=== PATIENT | female | born 1930 | race Caucasian/White ===

== ENCOUNTER 2017-01-28 22:18 | Inpatient (IN) | payer MEDICARE ==
[~2017-01-28] VITALS: Ht 157.5 cm; Wt 110.1 kg
[~2017-01-28 22:18] MED LIST: ATRV10T PO; METF1000 PO; MOT200T PO
[2017-01-28 22:23] VITALS: BP 151/73; PULSE 84; RESP 20; O2SAT 93
--- NOTE | 2017-01-28 22:45 | ED.REPORT ---
HPI-General Illness Date of Service January 28, 2017 ED Provider: Rainer Mccall MD 86 year old female with a history of CKD stage 3, diabetes, and thyroid disease presents to the ER accompanied by her daughter complaining of two days of fever (102.7F) and cough. Associated symptoms include confusion, difficulty breathing , rhinorrhea, generalized myalgias, and sore throat. Daughter reports that the patient has a history of pneumonia that seems to recur annually with associated confusion. Her neighbor's children have recently been ill with similar symptoms. Nursing Notes Stated Complaint: FEVER Chief Complaint: FLU/Cold Symptoms Nursing Notes Reviewed: Yes Allergies: Coded Allergies: No Known Allergies (Verified , 01/28/17) Scheduled Atorvastatin-Expunged Drug, Do Not Renew! (Atorvastatin-Expunged Drug, Do Not Renew!) 10 Mg Tablet 10 MG PO DAILY For Cholesterol Management. IBUPROFEN-Expunged Drug, Do Not Renew! (Motrin-Expunged Drug, Do Not Renew!) 200 Mg Tablet 200 MG PO PRN General Time Seen by MD: 22:45 Chief Complaint Cough, Fever Hx Obtained From: Patient, Daughter Arrived By: Walk-in Sudden in Onset?: No Onset Occurred: 2 days ago Symptom Duration: Since onset Associated with: Reports: Cough Pertinent Negative: Pt denies other symptoms Similar Sx Previous: No Past Medical History Past Medical History CKD stage III benign neoplasm of colon Reports: Diabetes mellitus, Hyperlipidemia, Hypertension Reports: Thyroid disease, Urinary tract infection Past Surgical History Reports: Cholecystectomy Smoking History Former Smoker Social History Other Social History: Lives with children Review of Systems Full Review of Systems Constitutional: Reports: Fatigue, Fever Ears / Nose / Throat: Reports: Nasal congestion, Sore throat Respiratory: Reports: Non-productive cough, Denies: Shortness of breath Cardiovascular: Denies: Chest pain GI: Denies: Abdominal pain, Diarrhea, Nausea, Vomiting Musculoskeletal: Reports: Myalgia (Generalized) Allergy / Immune: Reports: Rhinorrhea Neurologic: Reports: Confusion Complete sys rev & neg: except as marked. Physical Exam Vital Signs Vital Signs Date Time Temp Pulse Resp B/P Pulse Ox O2 Delivery O2 Flow Rate FiO2 01/28/17 23:41 94 Nasal Cannula 3 01/28/17 22:23 39.3 84 20 151/73 93 Room Air Initial VS: Reviewed Head / Eyes: Atraumatic, Normocephalic Neck: Supple, Non-tender, Full range of motion Abdomen / GI: Soft, Non-tender, No guarding, No rebound, No distention Extremities: Vascular intact, Neuro intact, No swelling, No tenderness Skin: Warm, Dry, No cyanosis Neurologic: Alert, Oriented, Nonfocal General/Constitutional: Awake, Alert, Well developed, Well nourished Alertness: Positive: Confused Respiratory / Chest: No chest tenderness, No chest wall deformity Wheezing / Retractions: Positive: Wheezing moderate Crackles and wheezes on the right both anteriorly and posteriorly. Cardiovascular: Heart rate NL, Regular rhythm, Heart sounds NL, Cap refill not delayed, Peripheral circulation NL Interpretation & Diagnostics Lab Results Interpretation Result Diagram: 01/28/17 2333 01/28/17 2333 Test 01/28/17 23:33 01/28/17 23:34 01/29/17 00:00 01/29/17 00:21 Total Bilirubin 0.4mg/dL (0.0-1.2) Aspartate Amino Transf (AST/SGOT) 20U/L (0-50) Alanine Aminotransferase (ALT/SGPT) 12U/L (0-32) Alkaline Phosphatase 49U/L (25-165) Troponin T 0.010ug/L (0.0-0.011) Pro-B-Type Natriuretic Peptide 199.2pg/mL (0-738) Total Protein 6.6g/dL (6.4-8.4) Albumin 3.7g/dL (3.4-5.0) Hold Dooley Top Tube Received (Received) Lactic Acid Level 0.2mmol/L (0.4-2.0) Procalcitonin 0.11ng/mL (0.00-0.08) ECG Interpretation ECG Interpretation: Sinus arrhythmia, 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 View: Portable, 1 view Interpretation / Wet Read by: Wet read ED physician Re-Eval/Medical Decision Med Decision/Clinical Course 86-year-old diabetes, several episodes of prior pneumonia, presents with mild cough hypoxemia mild confusion and fever. X-ray shows an upper lobe infiltrate. White count is unremarkable. There is mild from cytopenia mild anemia. Begun with IV antibiotics for outpatient or pneumonia. Admitted now for additional antibiotics, supplemental oxygen. Source of Hx: Old records Time of Eval: 23:58 Re-Evaluation/Progress Note: Discussed lab and imaging results and need for admission. Patient is amenable to the plan. All other questions addressed. Consultation : Referral / Consult Name: April Chaney DO Consulted With: Hospitalist Call Returned at: 11:55 Plant Operator Helper: Agrees with eval, Agrees with plan, Accepts admit Counseled Regarding: Diagnosis, Lab results, Need for admission Discharge & Departure Primary Impression: Pneumonia Additional Impression: Hypoxemia Disposition: ADMITTED TO HOSPITAL Discharge Condition All VS Reviewed: Yes Condition: Stable Referrals: ADELITA SCHULER (PCP) Scribe Attestation Portions of this note were transcribed by Peyman Goyal. I, Dr. Mccall, personally performed the history, physical exam and medical decision-making; I reviewed and confirmed the accuracy of the information in the transcribed note. 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 View: Portable, 1 view Interpretation / Wet Read by: Wet read ED physician Re-Eval/Medical Decision Source of Hx: Old records Time of Eval: 23:58 Re-Evaluation/Progress Note: Discussed lab and imaging results and need for admission. Patient is amenable to the plan. All other questions addressed. Consultation : Referral / Consult Name: April Chaney DO Consulted With: Hospitalist Call Returned at: 11:55 Plant Operator Helper: Agrees with eval, Agrees with plan, Accepts admit Counseled Regarding: Diagnosis, Lab results, Need for admission Discharge & Departure Primary Impression: Pneumonia Additional Impression: Hypoxemia Disposition: ADMITTED TO HOSPITAL Discharge Condition All VS Reviewed: Yes Condition: Stable Referrals: ADELITA SCHULER (PCP) Scribe Attestation Portions of this note were transcribed by Peyman Goyal. I, Dr. Mccall, personally performed the history, physical exam and medical decision-making; I reviewed and confirmed the accuracy of the information in the transcribed note. Signed by: Xiao Mckeon, 01/29/2017 at 00:28 copies to: ASHLEY-ADELITA RODARTE Christopher W MD January 28, 2017 22:45 PEYMAN GOYAL January 28, 2017 23:42
[2017-01-28 23:36] LABS: BASOPHILS % (AUTO) 0.2 % (0-3); EOSINOPHILS % (AUTO) 0 % (0-5); MONOCYTES % (AUTO) 6.1 % (4-12); Mean Corpuscular Hemoglobin 28.9 pg (27.0-35.0); Mean Corpuscular Volume 90.3 fL (81-100); NEUTROPHILS % (AUTO) 51.2 % (40-74); Platelet Count 110 bil/L (150-400)
[2017-01-28 23:41] VITALS: O2SAT 94
[2017-01-29] VITALS (11 sets, daily range): BP systolic 136–152; BP diastolic 51–76; PULSE 63–75; RESP 16–20; O2SAT 88–98
[2017-01-29] MEDS ORDERED: Azithromycin Inj 500 MG in Dextrose 5% w/Vial Mate 250 ML IV ONE (00:15)
[2017-01-29] MEDS ORDERED: cefTRIAXone Inj 2,000 MG in Dextrose 5% Minibag Plus 50 ML IV ONE (00:15)
[2017-01-29 00:44] LABS: TROPONIN T 0.01 ug/L (0.0-0.011)
[2017-01-29] MEDS: Lactated Ringer's 1,000 ML IV SCH ×3 (01:36→21:36)
[2017-01-29] MEDS ORDERED: Ondansetron 2 mg/mL 2 mL Inj IVPUSH PRN (01:40)
[2017-01-29] MEDS ORDERED: Alum-Mag Hydrox-Simeth 30 mL Suspension PO PRN ×2 (01:40→03:05)
[2017-01-29] MEDS: 0.9% Sodium Chloride 1,000 ML IV SCH ×3 (03:02→22:56)
[2017-01-29] MEDS ORDERED: Polyethylene Glycol (PEG) 17 Gm Powder PO PRN (03:05)
[2017-01-29] MEDS ORDERED: Albuterol 2.5 mg/3 mL Inhalation Solution NEB PRN (03:05)
[2017-01-29 03:50] LABS: APPEARANCE,URINE HAZY (CLEAR,HAZY); COLOR,URINE YELLOW (YELLOW); OCCULT BLOOD,URINE TRACE (NEGATIVE); UROBILINOGEN,URINE NORMAL (NORMAL)
--- NOTE | 2017-01-29 04:04 | PCM.HPMED ---
Subjective Date of Service January 29, 2017 Primary Provider: Admitting Physician: April Chaney DO Primary Care Physician: Clint-Ventura Tapia Attending Physician: April Chaney DO Admit Status: From the Emergency Department Chief Complaint: fever and cough History of Present Illness: 86-year-old female with history of non-insulin requiring type II diabetes, hypothyroid, and hypertension who presented to the ER for complaints of 2 days of high fever and cough. Daughter reports that associated symptoms include shortness of breath, generalized myalgias, and sore throat. Daughter has noted that patient has had some confusion also. Patient reports she has been around children that have been sick recently, but denies any recent travels. She has had a mild headache and lightheadedness, but denies any chest pain, abdominal pain, diarrhea, or rash. She at baseline has mixed urinary incontinence, but denies any dysuria. She reports her cough has been mildly productive. She has had decreased appetite and PO intake. Current PCP is Nikita. In the ER, patient was noted to be febrile with a temperature of 39.3, pulse of 84, respiratory rate of 20 and a blood pressure 151/73. She was noted to saturate around 92% on room air, but does desat to 88% with exertion. CBC is pertinent for a hemoglobin of 11.6 and a platelet count of 110 CMP was pertinent for creatinine of 1.13 and a pro-calcitonin 0.11 Patient was started on IV azithromycin and IV ceftriaxone for presumed CAP Review of Systems: Complete review of systems negative except as stated in the history of present illness Allergies Coded Allergies: No Known Allergies (Verified , 01/28/17) Home Medications Lisinopril 5 mg daily Lovastatin 10 mg daily Oxybutynin 15 mg daily Ibuprofen when necessary PMH Hypertension Hyperlipidemia Type II diabetes- patient reports not taking any diabetic medications anymore Hypothyroidism Recurrent pneumonias Mixed urinary incontinence PVD Carpal tunnel Surgical History Cholecystectomy Hysterectomy Family History Family history of CAD Social History Hx Alcohol Use: No Hx Substance Use: No Hx Tobacco Use: No Smoking Status: Former Smoker Living Arrangement: with Family Exam Vital Signs Vital Sign - Last Date Time Temp Pulse Resp B/P Pulse Ox O2 Delivery O2 Flow Rate FiO2 01/29/17 02:28 73 01/29/17 02:05 37.9 18 145/69 98 Nasal Cannula 2.00 Exam Gen: Obese elderly female who appears in mild respiratory distress, alert and oriented 3 HEENT: PERRLA, EOMI, sclerae anicteric, oropharynx mildly dry but pink Neck: Soft, obese, nontender CV: Irregular rhythm with normal rate, soft systolic murmur, no JVD noted Respiratory: Moderate Diffuse generalized bilateral wheezing, bibasilar rales noted, mild increase in respiratory effort, no accessory muscle usage, mild wet cough noted Abdomen: Obese, soft, nontender, and NABS MSK: Strength grossly intact and equal, swollen or tender joints, no clubbing cyanosis or edema Neuro: Grossly intact, no focal weakness, speaks full and fluent sentences Skin: Warm, dry, intact, mild skin tenting Psych: Mildly stoic affect, linear thought processes, cooperative Lab and Diagnostics Result Diagram: 01/28/17 23301/28/172332 12-lead ECG ECG Interpretation: Sinus arrhythmia, 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 View: Portable, 1 view Interpretation / Wet Read by: Wet read ED physician Assessment & Plan 86-year-old female with history of non-insulin requiring type II diabetes, hypothyroid, and hypertension who presented to the ER for complaints of 2 days of high fever and cough. Acute hypoxic respiratory failure, POA Patient noted to desat to 88% on room air with exertion. Not oxygen requiring at home, no known diagnosis of COPD or asthma Currently doing well on 2 L NC ABG prn increased oxygen requirement community-acquired pneumonia, present on admission Presentation of cough, fever, lung infiltrate on x-ray is suspicious for pneumonia. Patient is hypoxic with diffuse wheezing. Initiated on IV ceftriaxone and IV azithromycin on January 29 in the ED. We will plan to continue this for now Respiratory PCR viral panel MRSA screen pending, S. pneumoniae and legionella screen pending Blood cultures and sputum cultures pending DuoNeb 4 times a day while awake, albuterol prn Elevated creatinine, POA Patient is unsure of any history of chronic kidney disease. Creatinine is 1.13 on admission We will plan to hydrate and continue to monitor There is trace protein and blood on UA. Sinus Arrythmia, POA Patient denies any previous cardiac history. Admission EKG showed a sinus arrhythmia. Patient not complaining of any chest pain, may be due to hypoxia Place on telemetry for CV monitoring Consider echocardiogram Thrombocytopenia with chronic normocytic anemia, POA Platelets of 110 on admission. Patient's platelet was 106 in August, and was 145 in 2012. Uncertain of etiology, but worthy of at least outpatient workup. Stable normocytic anemia with hgb of 11.6. Hypothyroid, POA We will resume patient's home thyroid medication when MED REC is performed Hypertension, POA We will resume patient's home medication when med rec is done Mixed urinary incontinence, POA We will resume patient's home medication when med rec is done Type II diabetes, POA Patient reports her PCP does not think she has diabetes and removed all of her diabetes medication Hgb A1c pending Morbid obesity, POA BMI of 40.4 Tylenol when necessary for fever/pain Ibuprofen when necessary for fever/pain Zofran when necessary for nausea CODE STATUS: Full resuscitation Disposition: Pt is admitted under inpatient status, expected LOS >2 midnights, due to risk of adverse events, medical complexity, and decompensation Pain Evaluation: Adequate Pain Control VTE Prophylaxis: Sub-Q Heparin (Unfractionated) VTE Mechanical Devices: Intermittant Pneumatic CD Resuscitation Status: CPR: Attempt Resuscitation Attending Statement The patient was seen and examined together with house staff on 01/29/2017 and I agree with the history, exam and plan as outlined in the note above. Pato Guerrero DO January 29, 2017 03:28 April Chaney DO January 29, 2017 05:53
--- NOTE | 2017-01-29 05:46 | NUR ---
Admit Pt arrived to unit at 0150. Diagnosis of PNA. Pt oriented to room , call light and TV. Pt is FULL CODE per her discussion with MD as Pt was unsure if she has an advance directive. Very tired and having problems remembering all answers needed for questions. 0 c/o pain, lungs very wheezy with crackles and rhonchi. Pt on 2L o2 via NC. Weak and transferred from stretcher to bed with a slide and scoot. Was able to get up to BSC with 2EA and FWW.
[2017-01-29 06:03] LABS: BASOPHILS % (AUTO) 0.2 % (0-3); EOSINOPHILS % (AUTO) 0 % (0-5); MONOCYTES % (AUTO) 5.3 % (4-12); Mean Corpuscular Volume 90.9 fL (81-100); NEUTROPHILS % (AUTO) 46.2 % (40-74); Platelet Count 104 bil/L (150-400)
--- NOTE | 2017-01-29 07:51 | DRSVH ---
PROCEDURE: X-RAY CHEST ONE VIEW, PORTABLE ([id number]) INDICATIONS: FEVER, COUGH TECHNIQUE: One view of the chest was acquired. COMPARISON: September 10, 2016. FINDINGS: Surgical changes and devices: Right upper mediastinal surgical clips. Lungs and pleura: No pleural effusions or pneumothorax. Right midlung 2.6 cm ill-defined pulmonary o pacity. Left lower lobe pulmonary opacity. Mediastinum: Mediastinal contours appear normal. Heart size is normal. Bones and chest wall: No suspicious bony lesions. Overlying soft tissues appear unremarkable. IMPRESSION: Right midlung and left lower lobe pulmonary opacity may represent pneumonia. An underlyin g mass lesion in the right midlung is possible. Recommend a followup chest radiograph in 10 weeks. If finding persists, a chest CT with contrast will be needed. Dictated by: Luis Ramirez M.D. on 01/29/2017 at 7:47 Approved by: Luis Ramirez M.D. on 01/29/2017 at 7:50
[2017-01-29] MEDS: Albuterol-Ipratropium 3 mL Inhalation Solution NEB SCH ×4 (08:42→20:20)
--- NOTE | 2017-01-29 09:19 | NUR ---
Social Work- Initial Assessment Data: See Initial Assessment. Pt is a 86 year old female admitted 01/29/17 for RLL Pneumonia per H&P. Pt's insurance is [employer]. Pt's PCP is MD Nikita at the [facility]. DEISY met with pt and daughter Constanza [phone] at bedside regarding discharge plan, DEISY role explained. Pt alert and oriented x3. Pt resides in [place] with her great grandchildren and their mother where she remains largely independent with ADLs. Pt reports her 11 year old great grandson sometimes helps with meals, though this is not required. Pt uses a cane or walker at base and continues to drive. Pt has HH history with [facility] PT after a hospitalization in August. Pt states this was not very helpful to her. Pt has no SNF history. Pt uses no O2 at home. Pt has no LTC or VA benefits. Pt states she has completed DPOA but it is not on file at [facility], SW requested a copy to be brought to the hospital. Pt agreeable to this. DEISY wrote phone number on whiteboard and provided business card. Pt may benefit from PT evaluation, SW to request this in rounds. Pt likely to discharge home with family to transport, SW will continue to follow and R/O HH. Assessment: Pt who is independent at base Plan: DEISY to request PT evaluation at rounds. Pt likely to discharge home with family to transport, SW will continue to follow and R/O HH. ROSETTE Arce Addendum: 01/29/17 at 0927 by KRISTOPHER NAIDU Amended: Links added.
[2017-01-29] MEDS: Heparin 5,000 Unit/mL Inj SUBQ SCH ×2 (10:32→16:52)
[2017-01-29] MEDS ORDERED: Azithromycin Inj 500 MG in Dextrose 5% w/Vial Mate 250 ML IV SCH (19:30)
[2017-01-29] MEDS ORDERED: cefTRIAXone Inj 2,000 MG in Dextrose 5% Minibag Plus 50 ML IV SCH (20:30)
[2017-01-30] VITALS (11 sets, daily range): BP systolic 98–138; BP diastolic 56–74; PULSE 71–94; RESP 18–20; O2SAT 90–97
[2017-01-30] MEDS: Heparin 5,000 Unit/mL Inj SUBQ SCH ×3 (01:48→17:06)
[2017-01-30] MEDS: Lactated Ringer's 1,000 ML IV SCH ×2 (07:36→17:06)
[2017-01-30] MEDS: 0.9% Sodium Chloride 1,000 ML IV SCH ×3 (08:04→17:01)
[2017-01-30] MEDS: Albuterol-Ipratropium 3 mL Inhalation Solution NEB SCH ×4 (08:09→21:00)
--- NOTE | 2017-01-30 09:00 | NUR ---
Evaluation completed. Please go to "Notes" then click on "Assessments and Notes" (bottom left corner of screen). Then select appropriate discipline tab on top of screen.
[2017-01-30] MEDS ORDERED: LEVO50TA6 PO (09:54)
[2017-01-30] MEDS ORDERED: LISI-571 PO (09:54)
[2017-01-30] MEDS: Vancomycin 125 mg Oral Capsule PO SCH ×3 (10:54→20:53)
--- NOTE | 2017-01-30 13:40 | PCM.PNMED ---
Subjective Date of Service January 30, 2017 Subjective Patient continues to have high-grade fever. No significant cough or dyspnea. She has frequent watery diarrhea. C. difficile positive. Daughter at bedside reports she has a son (patient's grandson ) in correctional facility and they all went to visit him on January 16. 4 family members who visited intermediate developed URI symptoms and watery diarrhea few days after their return. Did not require hospitalization. they were treated for 'pneumonia' and diarrhea . Patient did not develop any symptoms at that time.also called and spoke with oldest daughter Juliet who lives with the the patient (the other sister lives downstairs with patient's grandkids) . She states patient developed watery diarrhea and high-grade fever 2 days prior to presentation. She also had confusion and poor appetite for 2 days. Patient complained of nasal congestion but no significant cough prior to presentation. Patient lethargic and not contributing much to history. Exam Vital Signs Vital Sign - Last Date Time Temp Pulse Resp B/P Pulse Ox O2 Delivery O2 Flow Rate FiO2 01/30/17 12:31 39.4 01/30/17 11:42 94 20 93 Nasal Cannula 2.00 01/30/17 07:55 113/61 Intake and Output 01/29/17 01/29/17 01/30/17 Cumulative From/Thru 14:59 22:59 06:59 01/28/17 22:23 - 01/30/17 06:03 Intake Total 2377 ml 100 ml 2577 ml Output Total 700 ml 1300 ml Balance 1677 ml 100 ml 1277 ml Intake Oral 400 ml 100 ml 600 ml IV Total 1977 ml 1977 ml Output Urine Total 600 ml Urine/Stool Mix 700 ml 700 ml # Voids 2 2 # Bowel Movements 4 1 6 Exam Gen: Obese elderly female who appears in mild respiratory distress, alert but lethargic HEENT: PERRLA, EOMI, sclerae anicteric, oropharynx mildly dry but pink Neck: Soft, obese, nontender CV: Irregular rhythm with normal rate, soft systolic murmur, no JVD noted Respiratory: Moderate Diffuse generalized bilateral wheezing, bibasilar rales noted, mild increase in respiratory effort, no accessory muscle usage, mild wet cough noted Abdomen: Obese, soft, nontender, and NABS MSK: Strength grossly intact and equal, swollen or tender joints, no clubbing cyanosis or edema Neuro: Grossly intact, no focal weakness, speaks full and fluent sentences Skin: Warm, dry, intact, mild skin tenting Psych: Mildly stoic affect, linear thought processes, cooperative IVs and Medications Medications Reviewed: Medications were reviewed in detail Lab and Diagnostics Result Diagram: 01/29/1751901/29/17519 12-lead ECG ECG Interpretation: Sinus arrhythmia, 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 View: Portable, 1 view Interpretation / Wet Read by: Wet read ED physician Assessment & Plan 86-year-old female with history of non-insulin requiring type II diabetes, hypothyroid, and hypertension who presented to the ER for complaints of 2 days of high fever and cough. # Acute C. difficile colitis -Patient presented with 2 days of fever, diarrhea, URi symptoms. No history of recent antibiotic use. Has history of contact with family members with similar symptoms ( diarrhea and URI symptoms) -C. difficile positive -Started vancomycin by mouth today 01/30. Discontinued ceftriaxone and azithromycin. Pneumonia seems to be viral given no productive cough, adenovirus positive. chest x-ray reported as possible early pneumonia. No significant infiltrate seen. will Repeat chest x-ray and consider starting doxycycline which is more c.dif neutral if significant infiltrate # Acute hypoxic respiratory failure, POA -Due to viral adenovirus pneumonia Patient noted to desat to 88% on room air with exertion. Not oxygen requiring at home, no known diagnosis of COPD or asthma Currently doing well on 2 L NC ABG prn increased oxygen requirement # Initially suspected community-acquired pneumonia, likely viral pneumonia, present on admission Presentation of cough, fever, lung infiltrate on x-ray is suspicious for pneumonia. Patient is hypoxic with diffuse wheezing. Initially started on IV ceftriaxone and IV azithromycin on January 29 in the ED. discontinued today 01/30 as above Respiratory PCR adenovirus MRSA screen negative, S. pneumoniae and legionella screen negative Blood cultures negative DuoNeb 4 times a day while awake, albuterol prn -Initial procal 0.11 # Elevated creatinine, POA Patient is unsure of any history of chronic kidney disease. Creatinine is 1.13 on admission We will plan to hydrate and continue to monitor There is trace protein and blood on UA. # Sinus Arrythmia, POA Patient denies any previous cardiac history. Admission EKG showed a sinus arrhythmia. Patient not complaining of any chest pain, may be due to hypoxia Place on telemetry for CV monitoring # Thrombocytopenia with chronic normocytic anemia, POA Platelets of 110 on admission. Patient's platelet was 106 in August, and was 145 in 2012. Uncertain of etiology, but worthy of at least outpatient workup. Stable normocytic anemia with hgb of 11.6. # Hypothyroid, POA We will resume patient's home thyroid medication when MED REC is performed # Hypertension, POA We will resume patient's home medication when med rec is done # Mixed urinary incontinence, POA We will resume patient's home medication when med rec is done # Type II diabetes, POA Patient reports her PCP does not think she has diabetes and removed all of her diabetes medication Hgb A1c pending # Morbid obesity, POA BMI of 40.4 Tylenol when necessary for fever/pain Ibuprofen when necessary for fever/pain Zofran when necessary for nausea CODE STATUS: Full resuscitation Disposition: Possible discharge in 2-3 days, PT eval requested VTE Prophylaxis: Sub-Q Heparin (Unfractionated) VTE Mechanical Devices: Intermittant Pneumatic CD Resuscitation Status: CPR: Attempt Resuscitation Chuck Stanley MD January 30, 2017 13:40
--- NOTE | 2017-01-30 14:08 | CONS ---
[address] [address] CONSULTATION REPORT PATIENT: aJcky ABDUL : 1930 MR#: [id number] ADMIT: 01/29/2017 JOB ID: [id number] INFECTIOUS DISEASE CONSULTATION: DATE OF SERVICE: 01/30/2017 REASON FOR CONSULTATION: C. difficile colitis plus adenoviral pneumonia. I thank Dr. Guerrero for this timely consult. HISTORY OF PRESENT ILLNESS: The patient is an 86-year-old woman whose past medical history includes relatively mild type 2 diabetes, hypothyroidism, hypertension, and some peripheral vascular disease. My efforts to gather history from her were very difficult. She is clearly awake and lying in bed, but when I ask a question, she usually just looks back at me and does not answer and does not decline to answer. On occasion, she did answer a very few questions with yes or no answers; for example, when I asked her how she felt, she said "only lousy" but refused to elaborate. When I asked about fevers, she said "yes." When asked about chills, I did not get an answer nor did I get an answer to questions about sweats. She basically declined to answer any questions about her respiratory status, though when asked if she had diarrhea, she said only "yes" and declined to say how long or how severe. When asked if she had any prior antibiotics, she said "yes", but declined to say when, which ones or what they were prescribed for her. In general, there was very little history to be obtained. In speaking to the nurses and nursing assistants, they report that she has been this way throughout the day and that she will occasionally answer questions with a one-word reply, or occasionally follow a command of some sort, but oftentimes just looks back at the examiner. Notes from the ER indicate that she was brought in by her daughter because she had a fever, cough, wheezing and shortness of breath. This was all associated with some mild sore throat, headache, and malaise. The daughter reported that at times in the hours leading up to admission last night, that she had been confused. It may be that the patient's mental status with me is confusion, though it is difficult to tell as she does answer some questions in a way that seemed appropriate. Additional notes from the chart indicate that the patient had been around some ill children lately and as she told me she had some antibiotics but she does not remember which ones or why they were given or anything else about them. The remainder of the history is basically unavailable. Note that the patient was found to have a high fever in the emergency department with temperature 39.3. Her blood pressure was okay however but she was desaturating at times, and a chest x-ray suggested the possibility of respiratory tract infection, so she was started on azithromycin and ceftriaxone. A C. diff PCR was also ordered because of some complaints about loose stool and it was positive. PAST MEDICAL HISTORY: 1. Type 2 diabetes. 2. Hypothyroidism. 3. Hypertension. 4. Peripheral vascular disease. SOCIAL HISTORY: The patient tells me she quit smoking a long time ago. There is no history of alcohol consumption or illicit drug use. FAMILY HISTORY: The patient declined to give any family history. REVIEW OF SYSTEMS: Basically impossible. I got a few one-word answers which I put in the History of Present Illness but the patient just stared back when asked most of the questions in the review of systems. PHYSICAL EXAMINATION: Reveals a woman who as noted is clearly awake. She is able to follow some commands such as deep breathing or opening her mouth, and she occasionally answers some questions but seems to perhaps willfully not answer the majority of these questions. Whether this is confusion, defiance or some other process, is unclear to me. Vital signs include temperature 37.5, though in the emergency department she was as high as 39.2, pulse 94, respiratory rate 20, blood pressure 113/61. She is saturating 93% but on face mask oxygen. Eyes without conjunctivitis. Oral cavity without apparent thrush, leukoplakia or pharyngitis but she does not open her mouth very far so it is hard to tell. Neck is clearly supple and without adenopathy or JVD. Lungs notable for diffuse wheezing bilaterally. Cardiac tones with regular rate and rhythm. The abdomen is soft and nontender in all areas. No Charles catheter is present. There is no suprapubic fullness. The extremities are with perhaps 1+ edema below the knees but not severe by any means. There is no evidence of skin breakdown or cellulitis. There is no synovitis. The patient moves all her extremities but does not exactly follow commands, but she does clearly move her extremities reasonably well. Remainder of the physical is either normal or impossible to do due to the lack of patient cooperation. LABORATORY DATA: Labs include white count of 4000, basically normal diff. Platelets low at 104 but it is notable that they have been low for many years, and they were 105 seven years ago, for example. It is unclear what is the nature of this chronic thrombocytopenia. Creatinine 1.19 which is right around her baseline going back several years. CRP 4.3. Procalcitonin 0.11. Urine Legionella antigen negative. Stool positive for C. diff. Influenza PCR negative. Multiplex respiratory PCR positive for adenovirus. MRSA screen negative and urine pneumococcal screen negative. Blood cultures are negative at less than 24 hours. IMAGING: Of the chest was reviewed on the computer. It shows a right mid lung and left lower lobe pulmonary opacity which could represent significant infiltrates. These are small however, ill-defined abnormalities and not typical of either bacterial or viral pneumonia. IMPRESSION: It would seem the patient has an adenviral respiratory tract infection which was her main thing that brought her to the emergency department with the fevers, chills and cough and sore throat. She was recently on a visit apparently to a correctional facility with many family members who were coughing and sick and it seems likely she has acquired adenovirus from these family members. The patient also has C. diff as she is noted to have diarrhea and this diarrhea is C. diff positive. It is unclear where this came from, but the patient does say that she has had antibiotics lately but just declines or cannot provide any details about who, when and where. RECOMMENDATIONS: 1. I would discontinue systemic antibiotics. Patient's white count, procalcitonin and chest x-ray are not compatible with a significant bacterial infection and we already have negative urine antigens as well. 2. I would continue with vancomycin 125 p.o. four times a day, planning for a 10-14 day course. 3. The patient should be kept in droplet and contact isolation for adenovirus is highly transmissible. 4. The patient will need contact enteric precautions for the C diff. Will continue to closely follow this patient with you. MAYELIN
--- NOTE | 2017-01-30 15:19 | DRSVH ---
PROCEDURE: X-RAY CHEST ONE VIEW, PORTABLE ([id number]) INDICATIONS: pneumonia TECHNIQUE: One view of the chest was acquired. COMPARISON: [facility], CR, XR CHEST 1VW (PORTABLE), 01/28/2017, 23:12. FINDINGS: Surgical changes and devices: None. Lungs and pleura: There is worsening of previously described right midlung and left retrocardiac opac ities since 01/28/17 Mediastinum: Mediastinal contours appear normal. Heart size is normal. Bones and chest wall: No suspicious bony lesions. Overlying soft tissues appear unremarkable. IMPRESSION: Worsening right midlung and left lower lobe opacities in keeping with multifocal pneumonia. Recommend continued radiographic followup to document resolution after treatment, and if persists, recommend C T chest to exclude underlying pulmonary nodule. Dictated by: Isai Umana M.D. on 01/30/2017 at 15:16 Approved by: Isai Umana M.D. on 01/30/2017 at 15:18
[2017-01-30] MEDS: Doxycycline Inj 100 MG in Dextrose 5% Minibag Plus 100 ML IV SCH (17:05)
--- NOTE | 2017-01-30 18:38 | NUR ---
Tb/Behavior Pt with fluctuating Tb. Administering PO Tylenol as able / as needed. Pt with shivers, continues to be somewhat responsive - selective in how/when she will respond. Sometimes verbal, nonverbal (shakes head yes/no), or will look at you and then look away since she does not want to respond. Pt has been cooperative with care. Tolerating ABX. Care continues.
[2017-01-31] VITALS (11 sets, daily range): BP systolic 106–138; BP diastolic 52–86; PULSE 73–91; RESP 18–32; O2SAT 89–95
[2017-01-31] MEDS: 0.9% Sodium Chloride 1,000 ML IV SCH ×2 (01:27→09:24)
[2017-01-31] MEDS: Lactated Ringer's 1,000 ML IV SCH ×2 (01:28→13:32)
[2017-01-31] MEDS: Heparin 5,000 Unit/mL Inj SUBQ SCH ×3 (01:38→16:30)
[2017-01-31] MEDS: Vancomycin 125 mg Oral Capsule PO SCH ×4 (04:03→21:02)
[2017-01-31] MEDS: Albuterol-Ipratropium 3 mL Inhalation Solution NEB SCH ×4 (04:20→20:12)
--- NOTE | 2017-01-31 05:12 | NUR ---
Fever Lungs coarse with wheezes. Temp high of 38.7 (101.7) This shift, 1 hour after APAP admin. notified via cook page. Pt shivering but refuses K pad and blankets. Pt seems despondent, reluctant to respond verbally and does not nod/shake head in response to all questions. She refuses breathing treatment, willing to take PO meds this shift. Incontinent of bowel- loose watery stool. Remains on 2L NC and CPOX on. Tele SR 90s with PACs. Care continues
[2017-01-31 09:17] LABS: BASOPHILS % (AUTO) 0 % (0-3); EOSINOPHILS % (AUTO) 0 % (0-5); MONOCYTES % (AUTO) 2.9 % (4-12); Mean Corpuscular Hemoglobin 29.8 pg (27.0-35.0); NEUTROPHILS % (AUTO) 66.4 % (40-74); Platelet Count 113 bil/L (150-400)
[2017-01-31 10:07] LABS: Phosphorus 3.1 mg/dL (2.5-4.9)
[2017-01-31 10:33] LABS: Magnesium 1.1 mg/dL (1.6-2.6)
[2017-01-31] MEDS ORDERED: Magnesium Sulf 2 Gm/50mL Water 2 GM in IV Premix 1 EACH IV ONE ×2 (11:20→11:25)
[2017-01-31] MEDS: metroNIDAZOLE Inj 500 MG in IV Premix 1 EACH IV SCH ×2 (12:27→21:03)
--- NOTE | 2017-01-31 12:32 | DRSVH ---
PROCEDURE: X-RAY KUB ([id number]) INDICATIONS: worsening c.diff rule out toxic megacolon TECHNIQUE: One view of the abdomen acquired. COMPARISON: [facility], CR, XR CHEST 1VW (PORTABLE), 01/30/2017, 14:16. FINDINGS: Surgical changes and devices: None. Bowel: Bowel gas pattern demonstrates a paucity of small bowel gas. There is gas within the transve rse colon which measures up to approximately 5 cm. The haustral folds demonstrate a few areas of pos sible mild thickening. Soft tissues: No suspicious abdominal calcifications. The visualized lungs redemonstrate bronchial wall thickening as well as bilateral perihilar opacities. Bones: No suspicious bony lesions. IMPRESSION: 1. Nonspecific bowel gas pattern without definite evidence of toxic megacolon at this time. However , recommend continued followup and if indicated further evaluation may be obtained with CT. Dictated by: Aravind Shah M.D. on 01/31/2017 at 12:22 Approved by: Aravind Shah M.D. on 01/31/2017 at 12:26
--- NOTE | 2017-01-31 12:55 | PCM.PNMED ---
Subjective Date of Service January 31, 2017 Subjective pt looked weak, not interactive, shivering with cold this morning alert, oriented x2 denied belly pain, nausea, vomiting had fever 38.7 at 5am Exam Vital Signs Vital Sign - Last Date Time Temp Pulse Resp B/P Pulse Ox O2 Delivery O2 Flow Rate FiO2 01/31/17 08:38 Nasal Cannula 01/31/17 05:04 38.7 90 20 106/52 92 2.00 Intake and Output 01/30/17 01/30/17 01/31/17 Cumulative From/Thru 15:00 23:00 07:00 01/28/17 22:23 - 01/31/17 06:58 Intake Total 1630 ml 1777 ml 1400 ml 7384 ml Output Total 400 ml 1700 ml Balance 1630 ml 1377 ml 1400 ml 5684 ml Intake Oral 300 ml 900 ml IV Total 1630 ml 1477 ml 1400 ml 6484 ml Output Urine Total 400 ml 1000 ml Urine/Stool Mix 700 ml # Voids 2 4 # Bowel Movements 2 8 Exam NAD, comfortably laying down on the bed no JVD, MMM, no LAD RRR, nl s1, s2 no mrg CTAB, no w,c S,mildly distended, mildly tender,BS+ warm, no edema, pulses 2/2 IVs and Medications Medications Reviewed: Medications were reviewed in detail Lab and Diagnostics Result Diagram: 01/29/1751901/29/17519 12-lead ECG ECG Interpretation: Sinus arrhythmia, 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 View: Portable, 1 view Interpretation / Wet Read by: Wet read ED physician Assessment & Plan 86-year-old female with history of non-insulin requiring type II diabetes, hypothyroid, and hypertension who presented to the ER for complaints of 2 days of high fever and cough. acute, active # Acute C. difficile colitis, Patient presented with 2 days of fever, diarrhea , URi symptoms. No history of recent antibiotic use. Has history of contact with family members with similar symptoms ( diarrhea and URI symptoms). C. difficile positive -clinically stable, minimal abdominal sx, but diarrhea persistent, PCT worsening , -Started vancomycin by mouth 01/30, added flagyl 500 q8h for additional coverage -will get baseline KUB to exclude toxic megacolon -monitor stools closely, replete electrolytes as needed # Acute hypoxic respiratory failure, POA, Due to viral adenovirus pneumonia -Currently doing well on 2 L NC, ABG prn increased oxygen requirement # Initially suspected community-acquired pneumonia, likely viral pneumonia, present on admission, Presentation of cough, fever, lung infiltrate on x-ray is suspicious for pneumonia. pt was also hypoxic with diffuse wheezing. Respiratory PCR+ adenovirus. -MRSA screen negative, S. pneumoniae and legionella screen negative, Blood cultures negative -Initially started on IV ceftriaxone and IV azithromycin on January 29 in the ED. discontinued 01/30, added doxycycline later given concern for atypical PNA, will continue for now, low threshold to broaden based on clinically picture. -DuoNeb 4 times a day while awake, albuterol prn -appreciate ID follow up, #LEENA, POA, Patient is unsure of any history of chronic kidney disease. Creatinine is 1.13 on admission, possibly prerenal with GI fluid loss -2.02 today, trends cr, avoid renal toxin, renally adjust meds chronic, stable # Sinus Arrythmia, POA, Patient denies any previous cardiac history. Admission EKG showed a sinus arrhythmia. Patient not complaining of any chest pain, may be due to hypoxia, Place on telemetry for CV monitoring # Thrombocytopenia with chronic normocytic anemia, POA Platelets of 110 on admission. Patient's platelet was 106 in August, and was 145 in 2012. Uncertain of etiology, but worthy of at least outpatient workup. Stable normocytic anemia with hgb of 11.6. # Hypothyroid, resume LT4 50mcg # Hypertension, POA, hold BP meds, given low BP trends # Mixed urinary incontinence, POA, resume patient's home medication # Type II diabetes, POA, Patient reports her PCP does not think she has diabetes and removed all of her diabetes medication, Hgb A1c pending # Morbid obesity, POA, BMI of 40.4 Tylenol when necessary for fever/pain Ibuprofen when necessary for fever/pain Zofran when necessary for nausea CODE STATUS: Full resuscitation Disposition: Possible discharge in 2-3 days, PT eval requested Addendum at 6pm, O2 requirement significantly went up to Oxymask 9liters, pt became more dyspneic with accessory muscle use, repeat CXR clearly showed worsening lobar PNA, repeat labs showed worsening PCT, Cr.pt still mentaining well, no signifant coughing,Given timing of sx, CXR, likely not hospital acquired pneumonia, more of CAP -transfer to [facility] -Zosyn was started, fluid was held, but bolus as needed target MAP>65 -will send ABG on O2, continue Oxymask targeting>95%, advance to [facility] if required -continue standing neb tx q4h -Charles ordered for strict I/O, given worsening renal function, consider lasix overnight if HD remains stable VTE Prophylaxis: Sub-Q Heparin (Unfractionated) VTE Mechanical Devices: Intermittant Pneumatic CD Resuscitation Status: CPR: Attempt Resuscitation Time spent 35min Jag Esquivel MD January 31, 2017 09:10
--- NOTE | 2017-01-31 14:02 | NUR ---
LOCAL [place] [employer] DRIVER attempted to speak with pt regarding [place]. Pt was not willing to respond to [employer] [place] [employer] questions, did not speak to [place] [place] [employer]IVER at all, despite attempts to explain AL. [place]AL [place] [employer] DRIVER placed call to pt's DPOA Elia Brown, daughter, regarding AL. [place]AL [place] [employer] DRIVER left message for DPOA requesting return call. Sheridan Morris, ROSETTE
[2017-01-31] MEDS: Doxycycline Inj 100 MG in Dextrose 5% Minibag Plus 100 ML IV SCH (15:02)
--- NOTE | 2017-01-31 15:42 | NUR ---
Social Work- Continued D/C Planning Data: EMR reviewed. Pt is on day 2 of hospitalization for RLL Pneumonia per H&P. Pt is not medically stable to discharge today, anticipate multiple more days of admission. PT has seen patient 01/31, recommending HHPT at discharge. DIRECTOR OF INFORMATICS attempted to follow up with pt at bedside regarding discharge plan, HHPT recommendations. Pt did not respond to DIRECTOR OF INFORMATICS questions, would not engage with DIRECTOR OF INFORMATICS and sat in her chair with eyes closed. Pt did not respond when DIRECTOR OF INFORMATICS requested to call daughter. DIRECTOR OF INFORMATICS to follow up with pt regarding HH choice tomorrow. Pt anticipated to discharge home with family, R/O HH. SW will continue to follow. Assessment: Pt for whom HH is medically necessary Plan: DIRECTOR OF INFORMATICS to follow up with pt regarding HH choice tomorrow. Pt anticipated to discharge home with family, R/O HH. SW will continue to follow. ROSETTE Arce
[2017-01-31] MEDS: Piperacillin-Tazo 3.375 Gm Inj 3.375 GM in Dextrose 5% Minibag Plus 50 ML IV SCH (15:45)
[2017-01-31 16:23] LABS: BASOPHILS % (AUTO) 0.2 % (0-3); EOSINOPHILS % (AUTO) 0 % (0-5); MONOCYTES % (AUTO) 1.5 % (4-12); Mean Corpuscular Hemoglobin 28.7 pg (27.0-35.0); Mean Corpuscular Volume 89.9 fL (81-100); NEUTROPHILS % (AUTO) 67.6 % (40-74); Platelet Count 86 bil/L (150-400)
[2017-01-31 17:11] LABS: Magnesium 2.6 mg/dL (1.6-2.6); Phosphorus 2.7 mg/dL (2.5-4.9)
--- NOTE | 2017-01-31 17:39 | DRSVH ---
PROCEDURE: X-RAY CHEST ONE VIEW, PORTABLE ([id number]) INDICATIONS: hypoxia TECHNIQUE: One view of the chest was acquired. COMPARISON: [facility], CR, XR CHEST 1VW (PORTABLE), 01/30/2017, 14:16. FINDINGS: Surgical changes and devices: Surgical clips are again noted at the right thoracic inlet. Lungs and pleura: No pleural effusions or pneumothorax. There are increased airspace opacities cons istent with consolidation in the right perihilar and left infrahilar regions. Mediastinum: Mediastinal contours appear prominent likely due to rotation. Heart size is normal. Bones and chest wall: No suspicious bony lesions. Overlying soft tissues appear unremarkable. IMPRESSION: 1. Increased bilateral areas of consolidation likely representing multifocal pneumonia. Recommend c orrelation clinically and followup to demonstrate resolution. Dictated by: Aravind Shah M.D. on 01/31/2017 at 17:30 Approved by: Aravind Shah M.D. on 01/31/2017 at 17:32
--- NOTE | 2017-01-31 18:14 | ABG ---
DateTimeAnalyzed 18:10:00 -_ pH ____7.326 - 7.350 7.450 pCO2 ___28.7__ -mmHg 35.0 45.0 pO2 ___67.0__ -mmHg 69.0 116 HCO3- ___14.6__ -mmol/L 22.0 26.0 ABE ___-9.9__ -mmol/L -2.0 2.0 tHb ___10.4__ -g/dL O2Hb ___91.5__ -% COHb ____1.1__ -% MetHb ____1.1__ -% sO2 ___93.6__ -% FIO2 ___21.0__ -% Drawn By BTL - Date/Time Notified____ 18:14:00 -_ Liter_Flow ____6.0__ -L/min Oxygen Device 1 __CANNULA - Notified By BTL - Notified Whom ___Dr. Song - B 756 -mmHg tO2 ___13.4__ -Vol% Adolph test _Positive -
--- NOTE | 2017-01-31 18:40 | NUR ---
Huizar Hospitalist requests huizar placement. 3 attempts. 2 attempts w/ 16 kyrgyz 3rd attempt (successful) w/ 14 kyrgyz Huizar. Pt complains of discomfort and pain during placement. Encouraged relaxation breathing during process and explained every step of what was going on. 3 people were needed during placement to visualize urethra. Pt requests to get up and use the restroom after procedure. Urine sample sent.
--- NOTE | 2017-01-31 19:42 | NUR ---
Mg/Tb/Resp/Transfer MG - Critical M.1* made aware, pt received 4gm Mg IV Naveen, tolerated. Repeat labs in afternoon, = 2.2 TB/Resp - Pt again with elevated Tb, shallow breathing, continued neb tx but pt continued to have crackles/wheezing. Not very cooperative with coughing and deep breathing, made aware of continued fevers and decreased O2 sats. Per MD, wanted sats at 95%. Pt placed on 9L oxymask with humidifier - sats fluctuated 94-96%, RR 20s (24-26). Repeat Xray obtained, Blood Cultures obtained, Abx changed to Zosyn. Later ABGs obtained, Charles placed andTransfer orders to [facility] placed. Transfer - Pt transferred to [facility] 2022, from [facility] 1025 via bed at ~1920. Report given to Neal Anglin RN prior to pt transfer. Pt left via bed on 9L oxymask while also wearing mask d/t droplet precautions, All personal belongings in hand, Chart and pt meds brought with, Tele remained in place, dental insurance biller called pt oldest Daughter and informed her of transferring upstairs.
[2017-01-31 20:30] LABS: APPEARANCE,URINE HAZY (CLEAR,HAZY); COLOR,URINE YELLOW (YELLOW); OCCULT BLOOD,URINE SMALL (NEGATIVE); PH,URINE 5.5 (5.0-8.0); UROBILINOGEN,URINE NORMAL (NORMAL)
[2017-02-01] VITALS (16 sets, daily range): BP systolic 122–161; BP diastolic 54–78; PULSE 77–119; RESP 24–34; O2SAT 90–98
[2017-02-01] MEDS: Heparin 5,000 Unit/mL Inj SUBQ SCH ×3 (00:51→16:53)
[2017-02-01 03:04] LABS: BASOPHILS % (AUTO) 0.2 % (0-3); EOSINOPHILS % (AUTO) 0 % (0-5); MONOCYTES % (AUTO) 1.5 % (4-12); Mean Corpuscular Volume 87.3 fL (81-100); NEUTROPHILS % (AUTO) 72.2 % (40-74); Platelet Count 94 bil/L (150-400)
[2017-02-01] MEDS: Vancomycin 125 mg Oral Capsule PO SCH ×4 (03:11→21:15)
[2017-02-01] MEDS: Piperacillin-Tazo 3.375 Gm Inj 3.375 GM in Dextrose 5% Minibag Plus 50 ML IV SCH (03:11)
[2017-02-01 03:26] LABS: Magnesium 2.3 mg/dL (1.6-2.6); Phosphorus 2.8 mg/dL (2.5-4.9)
[2017-02-01] MEDS: metroNIDAZOLE Inj 500 MG in IV Premix 1 EACH IV SCH ×3 (05:20→19:59)
--- NOTE | 2017-02-01 07:19 | NUR ---
Transfer / respiratory / fever [facility] approx at 1925. Pt on 9 L oxymask. Pt is tachyapneic with audible wheeze. Neb given per RT. Pt remains tachyapneic (resp high 20s -30s). Pt denies SOB. SPO2 mid 90s. Dr. Mahan notified. Received order to check Lactic acid = 0.9. No further orders at this time. T-amx = 39.5 treated with oral APAP. Temp down to 36.8. No overt complications noted.
[2017-02-01] MEDS ORDERED: Tigecycline Inj 100 MG in 0.9% Sodium Chloride 100 ML IV ONE (07:55)
--- NOTE | 2017-02-01 08:59 | PROG NOTE ---
[address] [address] PROGRESS NOTE PATIENT: Jacky ABDUL : 1930 MR#: [id number] ADMIT: 01/29/2017 JOB ID: [id number] DATE: 02/01/2017 REASON FOR FOLLOWUP: Pulmonary infiltrates combined with C. difficile colitis. INTERVAL HISTORY: The patient has worsened over the weekend. There has been a steady elevation of her procalcitonin which suggests that in addition to her viral pneumonia she likely has a bacterial process, though that is not entirely clear, as we know that she does have C. diff colitis. In any event, her antibiotics have been broadened and she is now on oral vancomycin, IV Flagyl and IV Zosyn for what is thought to be a multifocal community-acquired pneumonia plus C. diff. The patient again tells me this morning that she did not take antibiotics in the months leading up to this admission, leaving in question where the C. difficile originated. She says she is having no abdominal pain or cramps but is continuing to have diarrhea. She denies fevers, chills or headache. She says she is not significantly short of breath, though she has required increasing face mask oxygen. She has minimal cough. No other new complaints. PHYSICAL EXAM: Has revealed persistent and high fevers, now 39.5 earlier this morning, and 36.8, at this moment, pulse 86, respiratory rate 30, blood pressure 122/54, saturating well on 9 L. Examination of the head reveals no changes. The patient's mental status is now clear. It had been a bit abnormal on Wednesday in that she was mute at times during questions. Oral cavity negative. Neck supple. Lungs with scattered rales at the bases. Cardiac tones without change. Abdomen is surprisingly soft and nontender. No skin rashes noted. LABORATORIES: Include white count 5200. Creatinine 2.66. Liver function tests normal except AST 56, albumin is 2.7. Procalcitonin climbing, is now 1.62, and it started off basically negative on the . Urinalysis without pyuria. Micro studies include negative Legionella and pneumococcal urine antigen, negative MRSA screen. Negative blood cultures. Respiratory viral PCR panel positive for adenovirus and stool positive for C. diff. IMAGING: Includes chest x-rays which show increasing bilateral, right greater than left, infiltrates. KUB showed no dilatation of the bowel. IMPRESSION: This is a confusing case of a woman who was admitted with what sounded like an adenoviral pneumonia primarily, but was also found to have some loose stools and a positive toxin for Clostridium (C.) diff. She now has progressively declining procalcitonin as well as deteriorating respiratory status with progressive pulmonary infiltrates. Whether these pulmonary infiltrates are strictly on the basis of adenovirus or bacterial pneumonia is hard to know. Certainly, one possibility is that the procalcitonin is being elevated by the C. diff and that she clearly has viral pneumonia. It is also possible that she has both C. diff and a community-acquired bacterial progressive multifocal pneumonia, though this seems less likely. RECOMMENDATIONS: 1. Will continue with oral vancomycin and IV Flagyl for treatment of C. diff. 2. We will change the Zosyn to tigecycline, as tigecycline may have a role in treating C. diff, and also has reasonable activity against community-acquired pneumonia. We will continue to closely follow this complex patient with you.
[2017-02-01] MEDS: Albuterol-Ipratropium 3 mL Inhalation Solution NEB SCH ×4 (09:00→19:42)
[2017-02-01] MEDS: Tigecycline Inj 50 MG in 0.9% Sodium Chloride 100 ML IV SCH ×2 (12:39→21:15)
[2017-02-01] MEDS ORDERED: Furosemide 10 mg/mL 4 mL Inj IVPUSH ONE (14:25)
--- NOTE | 2017-02-01 14:43 | NUR ---
NUTRITION ASSESSMENT Assess: 86 YO F admitted for pneumonia. Pt with C.diff. Pt has had poor PO intake X 3 days. PMHX: HTN, HLD, type 2 DM, hypothyroidism, recurrent PNA, PVD. DIET: Heart Healthy/Consistent Carb. PO intake: mostly refusal. LABS: BUN 31, Cr 2.66, Ca 7.8, Alb 2.7, Glu 128, AST 56 MEDICATIONS: Reviewed. GI: 5 BM 01/31. C.diff positive. SKIN: No issues noted. ANTHROPOMETRICS: Wt 102.5 kg, BMI 41.3 kg/m2, Admit wt: 100.1 kg, Adj. BW: 80.4 kg. ESTIMATED NEEDS: Calories: 9028-4501 kcal/day (25-30 kcal/kg Adj. BW) Protein: 96-121 g/day (1.2-1.5 g/kg Adj. BW) NUTRITION DIAGNOSIS: 1) Inadequate oral intake related to decreased ability to consume sufficient energy as evidenced by refusal of PO. INTERVENTION: 1) Will add Glucerna supplement to encourage adequate nutrition. 2) Consider addition of probiotics to re-establish positive gut bertha. MONITOR/EVALUATE: PO intake, labs, GI/nutrition status. Follow per moderate nutrition risk guidelines.
--- NOTE | 2017-02-01 15:57 | PCM.PNMED ---
Subjective Date of Service February 01, 2017 Subjective Ms. Brown is an 86-year-old female with history of non-insulin requiring type II diabetes, hypothyroid, and hypertension who presented to the ER for complaints of 2 days of high fever and cough. Today is hospital day 4. Last [place], [place] [facility] [place] and increased oxygen demand. She was started on IV Zosyn for possible bacteria pneumonia and IV fluid was held. Today, she states that she continues to have subjective fever, chills, diarrhea , and a cough. She does not have chest pain or abdominal pain. Exam Vital Signs Vital Sign - Last Date Time Temp Pulse Resp B/P Pulse Ox O2 Delivery O2 Flow Rate FiO2 02/01/17 15:18 Mask 14.00 02/01/17 15:15 93 34 91 90 02/01/17 11:30 37.0 128/66 Intake and Output 01/31/17 01/31/17 02/01/17 Cumulative From/Thru 15:00 23:00 07:00 01/28/17 22:23 - 02/01/17 06:59 Intake Total 1829 ml 400 ml 9613 ml Output Total 300 ml 600 ml 2600 ml Balance 1529 ml -200 ml 7013 ml Intake Oral 300 ml 400 ml 1600 ml IV Total 1529 ml 8013 ml Output Urine Total 300 ml 600 ml 1900 ml Urine/Stool Mix 700 ml # Voids 4 # Bowel Movements 5 13 Exam Gen: Obese elderly female sitting upright in bed with an Oxymask in place who appears in mild respiratory distress, alert and oriented 3 HEENT: EOMI, sclerae anicteric Neck: Soft, obese, nontender CV: Irregular rhythm with normal rate, soft II/ systolic murmur, no JVD noted Respiratory: Mild diffuse generalized bilateral wheezing, bibasilar rales noted , mild increase in respiratory effort, no accessory muscle usage, no cough noted during time of exam Abdomen: Obese, soft, nontender, and normal bowel sounds MSK: Trace bilateral non-pitting edema to the mid-anterior leg below the knee. Strength grossly intact and equal, no swollen or tender joints Neuro: Grossly intact, no focal weakness, speaks 5-10 word fluent sentences Skin: Warm, intact Psych: Mildly stoic affect, linear thought processes, cooperative IVs and Medications Medications Reviewed: Medications were reviewed in detail Lab and Diagnostics Result Diagram: 02/01/17 0255 02/01/17 0255 X-Rays, CTs and MRIs PROCEDURE: X-RAY KUB IMPRESSION: 1. Nonspecific bowel gas pattern without definite evidence of toxic megacolon at this time. However, recommend continued followup and if indicated further evaluation may be obtained with CT. Approved by: Aravind Shah M.D. on 01/31/2017 at 12:26 PROCEDURE: X-RAY CHEST ONE VIEW, PORTABLE IMPRESSION: 1. Increased bilateral areas of consolidation likely representing multifocal pneumonia. Recommend correlation clinically and followup to demonstrate resolution. Approved by: Aravind Shah M.D. on 01/31/2017 at 17:32 12-lead ECG ECG Interpretation: Sinus arrhythmia, 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 View: Portable, 1 view Interpretation / Wet Read by: Wet read ED physician Assessment & Plan 86-year-old female with history of non-insulin requiring type II diabetes, hypothyroid, and hypertension who presented to the ER for complaints of 2 days of high fever and cough. acute, active problems: 1. Acute hypoxic respiratory failure, present on admission, due to viral adenovirus pneumonia and likely secondary bacterial pneumonia. -While patient does not have history of congestive heart failure, she has a net input of 7233 ml during this hospital stay and has bilateral basal crackles on exam. -Patient now requiring 14 L by oxymask with oxygen saturation at 91% -Will trial high flow nasal cannula and monitor respiratory status -Started on tigecycline IV -Discontinue IV fluids -One dose of IV furosemide 40 mg and monitor I&O, blood pressure, and respiratory status tomorrow 2. Community-acquired pneumonia, likely viral pneumonia with a secondary bacterial pneumonia, present on admission, Presentation of cough, fever, lung infiltrate on x-ray is suspicious for pneumonia as above. Pt was also hypoxic with diffuse wheezing. Respiratory PCR+ adenovirus. -MRSA screen negative, S. pneumoniae and legionella screen negative, Blood cultures negative -Initially started on IV ceftriaxone and IV azithromycin on January 29 in the ED. discontinued 01/30, added doxycycline later given concern for atypical pneumonia. -DuoNeb 4 times a day while awake, albuterol as needed -Infectious disease consulted and following, their time and recommendations are appreciated 3. Acute C. difficile colitis, Patient presented with 2 days of fever, diarrhea , URI symptoms. No history of recent antibiotic use. Has history of contact with family members with similar symptoms ( diarrhea and URI symptoms). C. difficile positive -Clinically stable, minimal abdominal sx, but diarrhea persistent -Started vancomycin by mouth 01/30, added Flagyl IV 500 q8h for additional coverage -Baseline KUB was not suggestive of toxic megacolon at this time but will continue to monitor for changes in symptoms. Consider CT scan if continued concern. -Monitor stools closely, replete electrolytes as needed 4. Acute kidney injury, present on admission, Patient is unsure of any history of chronic kidney disease. Creatinine is 1.13 on admission, possibly prerenal with GI fluid loss or related to hypervolemic state currently -2.66 today -Continue to trend creatinine -Avoid renal toxin, renally adjust medications -One dose of IV furosemide today chronic, stable problems 5. Sinus Arrythmia, present on admission -Patient denies any previous cardiac history. -Admission EKG showed a sinus arrhythmia. -Patient not complaining of any chest pain, may be due to hypoxia -Place on telemetry for CV monitoring 6. Thrombocytopenia with chronic normocytic anemia, present on admission -Platelets of 110 on admission. Patient's platelet was 106 in August, and was 145 in 2012. -Uncertain of etiology, but will need an outpatient workup. -Stable normocytic anemia with hgb of 11.6. -Continue to monitor and consider holding heparin 7. Hypothyroid -Resume levothyroxine 50mcg 8. Hypertension, present on admission -Hold home lisinopril, given low blood pressure trends 9. Mixed urinary incontinence, present on admission 10. Type II diabetes, present on admission -Patient reports her primary care provider does not think she has diabetes and removed all of her diabetes medication -Hgb A1c pending 11. Morbid obesity, present on admission, BMI of 40.4 Tylenol when necessary for fever/pain Ibuprofen when necessary for fever/pain Zofran when necessary for nausea VTE Prophylaxis: Sub-Q Heparin (Unfractionated) VTE Mechanical Devices: Intermittant Pneumatic CD Resuscitation Status: CPR: Attempt Resuscitation Attending Statement The patient was seen and examined together with Dr. Ferreira on 02/01/2017 and I agree with the history, exam and plan as outlined in the note above. . Mariely Ferreira DO February 01, 2017 15:57 Thaddeus Hardin MD February 01, 2017 17:30
--- NOTE | 2017-02-01 17:41 | ABG ---
DateTimeAnalyzed 17:37:00 -_ pH ____7.326 - 7.350 7.450 pCO2 ___25.5__ -mmHg 35.0 45.0 pO2 134 -mmHg 69.0 116 HCO3- ___12.9__ -mmol/L 22.0 26.0 ABE __-11.5__ -mmol/L -2.0 2.0 tHb ___10.5__ -g/dL O2Hb ___96.9__ -% COHb ____0.8__ -% MetHb ____1.0__ -% sO2 ___98.7__ -% FIO2 ___90.0__ -% Drawn By btl - Date/Time Notified____ 17:41:00 -_ Spontaneous_RR ___30.0__ -b/min Liter_Flow ___55.0__ -L/min Oxygen Device 1 __CANNULA - Notified By btl - Notified Whom ___Dr. Hanna - B 754 -mmHg tO2 ___14.5__ -Vol% Adolph test _Positive -
--- NOTE | 2017-02-01 17:56 | NUR ---
Temperature, Respiratory, Multidisciplinary Communication 0822 - During morning assessments her temperature was 37.2 C. Denied feeling febrile, but gave 650mg of Acetaminophen anyway. Her temperature came down to 37.0 1239 - Gave her 0830 dose of Tygacil IV antibiotic about 1239 as it was slow in coming from pharmacy. 1530 - She was taken off 14L of the oxymask and placed on Highflow O2 per MD orders at 55L and 90%. 1655 - Her temperature was 39.0 and was feeling febrile (shaking, feeling hot). Gave her 650mg of Acetaminophen PO. Noted her mentation had seemed to decrease since this AM. She was alert, but slow to respond to questions or comments. Paged Dr. Klaus Ferreira and notified her about this. She said she would check on her shortly. 1719 - Spoke to Dr. Ferreira who said she was going to order a stat ABG and a repeat chest x-ray and reassess her needs. Called Viet Morales the Respiratory Therapist to tell him an ABG had been ordered. He came and obtained it. Dr. Ferreira is assessing it. 1739 - Fire Pot Operator called to notify this nurse that her heart rate had been increasing. Told her she was having a fever, but that it should decrease with the Acetaminophen that was given. Asked her to call back in about a [id number] if her heart rate continued to be elevated or increase. 1802 - Fire Pot Operator called to say her heart rate was currently in the 130s and even went up to the 150s. Am going to check on the patient now, notify MDs, and prioritize her care. Care continues. Addendum: 02/01/17 at 1851 by BISHOP MATUTE RN 1811 - Her repeat temperature was about 38.[address] Flores and Dr. Ferreira. They said to treat temp if above 38.5 C and that they were looking into getting a nephrology consult. Care continues.
--- NOTE | 2017-02-01 19:46 | DRSVH ---
PROCEDURE: X-RAY CHEST ONE VIEW, PORTABLE ([id number]) INDICATIONS: dyspnea TECHNIQUE: One view of the chest was acquired. COMPARISON: [facility], CR, XR CHEST 1VW (PORTABLE), 01/31/2017, 17:06. FINDINGS: Surgical changes and devices: None. Lungs and pleura: No pleural effusions or pneumothorax. No change in severe air space opacity within the right mid lung, and mild patchy opacity at the left lung base. Mediastinum: Mediastinal contours appear normal. Heart size is normal. Bones and chest wall: No suspicious bony lesions. Overlying soft tissues appear unremarkable. IMPRESSION: No change in multifocal pneumonia. Follow up plain films of the chest are recommended to ensure resolution, and to exclude underlying or central malignancy. Dictated by: Mookie Porter M.D. on 02/01/2017 at 19:44 Approved by: Mookie Porter M.D. on 02/01/2017 at 19:45
[2017-02-01] MEDS ORDERED: MeTOProlol 1 mg/mL 5 mL Inj IVPUSH PRN (23:40)
[2017-02-02] VITALS (16 sets, daily range): BP systolic 111–142; BP diastolic 48–98; PULSE 82–105; RESP 20–34; O2SAT 92–97
[2017-02-02] MEDS ORDERED: Diltiazem 5 mg/mL 5 mL Inj IVPUSH ONE (00:05)
--- NOTE | 2017-02-02 01:00 | NUR ---
Cardiac Pt HR 110s -120s. Tele shows A-Fib. 12 leads confirmed A-Fib. Provider notified. Received order for Diltiazem IVP 5 mg x 1. HR down to 80s -90s but shortly increased. Provider updated. Received order for Diltiazem drip. Awaiting drip from Rx. Will notify incoming RN. Report given and care transferred to the receiving RN (Holly Naylor) at the bedside.
[2017-02-02] MEDS: Heparin 5,000 Unit/mL Inj SUBQ SCH ×3 (01:07→16:46)
--- NOTE | 2017-02-02 01:31 | ABG ---
DateTimeAnalyzed 01:28:00 -_ pH ____7.322 - 7.350 7.450 pCO2 ___24.5__ -mmHg 35.0 45.0 pO2 ___95.1__ -mmHg 69.0 116 HCO3- ___12.3__ -mmol/L 22.0 26.0 ABE __-12.1__ -mmol/L -2.0 2.0 tHb ___11.2__ -g/dL O2Hb ___96.1__ -% COHb ____0.6__ -% MetHb ____0.9__ -% sO2 ___97.6__ -% FIO2 ___80.0__ -% Drawn By MD - Date/Time Notified____ 01:31:00 -_ Spontaneous_RR ___30.0__ -b/min Liter_Flow ___55.0__ -L/min Oxygen Device 1 __CANNULA - Notified By MD - Notified Whom RN J.RICKY - B 748 -mmHg tO2 ___15.2__ -Vol% Adolph test _Positive -
[2017-02-02] MEDS: Diltiazem Inj 125 MG in 0.9% Sodium Chloride 100 ML, Pharmacy To Mix 1 EA IV SCH (02:21)
[2017-02-02] MEDS: Vancomycin 125 mg Oral Capsule PO SCH ×4 (02:24→20:10)
[2017-02-02] MEDS: metroNIDAZOLE Inj 500 MG in IV Premix 1 EACH IV SCH ×3 (04:48→20:03)
--- NOTE | 2017-02-02 05:03 | NUR ---
CARDIAC Patient remains in AFib despite being started on cardizem drip. Rate appears controlled, hovering at 95-105. O2 97% on hiflow o2, RR 24-32, with accesory use. Denies pain. Attempted to get up to BSC, unable due to weakness and mild confusion. Incontinent in brief of green, liquid stool. Brief changed, redness noted to sacrum and labial folds. Ashely applied. Continues with fever/chills. Will continue to monitor patient closely.
[2017-02-02 05:14] LABS: Mean Corpuscular Volume 85.6 fL (81-100)
[2017-02-02 05:15] LABS: BASOPHILS % (AUTO) 0.4 % (0-3); EOSINOPHILS % (AUTO) 0 % (0-5); MONOCYTES % (AUTO) 1.5 % (4-12); Platelet Count 108 bil/L (150-400)
[2017-02-02] MEDS: Tigecycline Inj 50 MG in 0.9% Sodium Chloride 100 ML IV SCH ×2 (08:05→20:48)
[2017-02-02] MEDS: Albuterol-Ipratropium 3 mL Inhalation Solution NEB SCH ×4 (08:13→21:36)
[2017-02-02] MEDS ORDERED: Sodium Bicarb 8.4% Inj 150 MEQ in Dextrose 5% 1,000 ML IV SCH (10:45)
--- NOTE | 2017-02-02 11:28 | NUR ---
Social Work Note - Continued Discharge Planning: D/A: The Pt is an 86 y/o female that is now on day 4 of hospitalization for RLL pneumonia. Pt is on high flow, having fevers, and is positive for cdiff. PT eval completed 02/01/17, recommending discharge to SNF. SW met with one of the Pt's daughter to explain PT recommendations, SNF list provided. Daughter would like to review list with her sister, SW to follow up regarding choice. ID following, Pt on IV Abx. SW will continue to follow for IV Abx needs. Nephrology and Nutrition also following, see notes. SW will continue to follow. P: The Pt is not medically stable for discharge at this time. PT eval completed, recommending discharge to SNF. SNF list provided to family, SW to follow up regarding SNF choice. ID following, SW to follow regarding IV Abx needs. SW will continue to follow. Linh Santiago MSW Personnel Analyst ROSETTE Pedro
[2017-02-02] MEDS: Piperacillin-Tazo 3.375 Gm Inj 3.375 GM in Dextrose 5% Minibag Plus 50 ML IV SCH ×2 (12:53→20:48)
--- NOTE | 2017-02-02 13:19 | PROG NOTE ---
[address] [address] PROGRESS NOTE PATIENT: Jacky ABDUL : 1930 MR#: [id number] ADMIT: 01/29/2017 JOB ID: [id number] DATE: 02/02/2017 INFECTIOUS DISEASE FOLLOW UP NOTE: REASON FOR FOLLOWUP: Adenoviral pneumonia with C. difficile colitis, renal failure and possible superimposed bacterial pneumonia. INTERVAL HISTORY: Over the past 24 hours, the patient has worsen considerably. She now has increasing shortness of breath and is on high-flow nasal oxygen. She continues to have a fairly minimal cough which is occasionally productive and no pleuritic chest pain. She still has abdominal cramps and diarrhea continues with 3-4 bowel movements a day according to the nurse. She is also continuing to have fever and chills. I spoke with the nurse at the bedside as well as with the patient's daughter. PHYSICAL EXAMINATION: Reveals a quite ill woman on high-flow nasal oxygen and with only moderate oxygen saturation. She spiked to 39.5 during the night. She is 37.8 now. Pulse is in the low 90s and it is AFib which is a new development. Respiratory rate in the mid to upper 20s, blood pressure 113/48 without vasopressors. She is saturating 92% on 14 L on the high-flow mask. She is awake and can answer some questions but as has been the case the last few days, she is not terribly interactive but does appear to know where she is. She declines to say if she is better or worse since yesterday. The examination of the eyes reveals no conjunctivitis. The neck is without notable abnormality. It is not tender nor is it is stiff. Her lungs are notable for bilateral crackles heard really throughout both lung howe at this point. Cardiac tones now irregular and in the low 90s. Her abdomen is slightly distended with diffuse mild tenderness. She has a Charles catheter and has relatively poor urine output. Extremities without evidence of cellulitis. LABORATORY STUDIES: Include a white count which is still very low 5400 and it has really not changed. Platelet count 108 which is bouncing around at 100 level. A minimal left shift 78% segs, otherwise normal. Her creatinine has, however, gone up dramatically since admission and was 1.13 on admission, now it has risen all the way to 4.45 indicative of acute renal failure. Glucose 145. Calcium 7.4. AST is 82. Procalcitonin was negative when she came in at 0.1. It has now risen all the way to 4.7 over the four days she has been here. Urinalysis had no pyuria at the time of admission, or in a subsequent value. Serologic studies include negative urine, Legionella and pneumococcal antigens. Blood cultures are negative. MRSA screen negative. Stool positive for C. difficile. Respiratory viral PCR panel positive for adenovirus and as noted, multiple sets of blood cultures done throughout the hospital stay are negative. IMAGING: Has shown progressive infiltrates since admission. Initially she had right mid lung and left lower patchy opacities which I felt were compatible probably with her viral pneumonia. These have steadily worsened, however, throughout her hospital stay and she now has multifocal pneumonia which is quite severe. IMPRESSION: This is a very confusing case of this elderly woman who was in apparently her usual state of excellent health until several days prior to admission, according to the daughter, when a number of people in the family developed nausea with occasional vomiting and diarrhea. This afflicted this patient as well. She subsequently began to develop a cough and some shortness of breath and was admitted here back on the with what was thought to be community-acquired pneumonia as well as unexplained diarrhea. It was quickly found that the patient had C. difficile in the stool as well as adenovirus in the lungs and I saw the patient in consult on the . I was concerned that our community-acquired pneumonia antibiotics were probably making her C difficile worse and that she probably just had adenovirus pneumonia, which can be very severe, combined with C. difficile. Unfortunately, the patient worsened and in consultation over the weekend by telephone, the hospitalist and I added back additional antibiotics. Yesterday I could see that the patient was clearly worsening and added tigecycline which is an antibiotic thought to be helpful in severe C difficile colitis which would also provide broad-spectrum coverage for community-acquired pneumonia though it is not a typical antibiotic to use in these situations for a variety of reasons. In any event, the patient has again worsened overnight and I am increasingly concerned in addition to a proven adenoviral pneumonia as well as severe C. difficile with now worsening renal failure that she may also have a bacterial superinfection in her lungs. This is apparently not responding well to the Tygacil started yesterday though it may be too early to tell. RECOMMENDATIONS: 1. Will add Zosyn to her renally adjusted doses to the Tygacil with the Tygacil perhaps having some usefulness against pneumonia but especially against what appears to be very severe C. difficile. 2. The patient needs repeat KUB to make sure she is not developing kevin colon as a cause of this worsening situation. 3. I would consider a CT scan of the chest if that were feasible but the patient is on now on high-flow oxygen and that may be unsafe to transport her for that purpose. 4. I would consider pulmonary consult of this patient. 5. I discussed with the daughter that this patient is really moving into a very high risk situation with worsening respiratory failure, worsening renal failure and ongoing diarrhea from C. difficile. 6. Note that the patient is also on IV Flagyl so she is actually on two drugs of the oral vanc and the IV Flagyl for her C. difficile and now two drugs primarily aimed at the pneumonia and the Tygacil which will have good atypical coverage as well as the possible coverage for C. difficile and the Zosyn for a variety of other potential pathogens, both nosocomial and community acquired.
--- NOTE | 2017-02-02 13:20 | DRSVH ---
[facility] [address] [place] [address] Echocardiogram Report Name: Jacky ABDUL Study Date: 02/02/2017 Height: 6 2 in Hospital Exam Location: [facility] Weight: 2 25 lb Gender: Female BSA: 2.0 m2 : 1930 Age: 86 yrs BP: 142/6 5 mmHg Reason For Study: Dyspnea Ordering Physician: HOSPITALIST [facility] Performed By: Yenny Boswell Referring Physician: DIEGO NATION Interpretation Summary The patient was in atrial fibrillation with heart rates between 85-115 bpm during the exam. Mild concentric left ventricular hypertrophy with hyperdynamic function and estimated ejection fraction of 65-70%. Normal right ventricle and both atria. Mild aortic valve sclerosis. No valvular regurgitation. The right ventricular systolic pressure is estimated at 28 mmHg assuming a right atrial pressure of 3 mm Hg. Mildly enlarged ascending aorta. Procedure: A two-dimensional transthoracic echocardiogram with color flow and Doppler was performed. There is no prior echocardiogram noted for this patient. The study quality was technically adequate. The patient was in atrial fibrillation with heart rates between 85-115 bpm during the exam. Left Ventricle: The left ventricle is normal in size. There is mild concentric left ventricular hypertrophy. The LVOT velocity is 1.5 m/s. The left ventricle is hyperdynamic. The ejection fraction is estimated to be 65- 70%. Diastolic function could not be accurately assessed due to atrial fibrillation. Right Ventricle: The right ventricle is normal size. The right ventricular systolic function is normal. Atria: The left atrial size is normal. Right atrial size is normal. The interatrial septum is intact with no evidence for an atrial septal defect. Mitral Valve: The mitral valve is normal in structure and function. There is no mitral regurgitation noted. Aortic Valve: There is mild aortic valve sclerosis. The aortic valve opens well. No aortic regurgitation is present. Tricuspid Valve: The tricuspid valve is normal in structure and function. There is trace tricuspid regurgitation. The right ventricular systolic pressure is estimated at 28 mmHg assuming a right atrial pressure of 3 mm Hg. Pulmonic Valve: The pulmonic valve is normal in structure and function. There is trace pulmonic regurgitation. Great Vessels: The aortic root is normal size. The ascending aorta is mildly enlarged. The pulmonary artery is normal size. The IVC is of normal diameter and collapses greater than 50% with a sniff. This suggests a low right atrial pressure of 3 mm Hg. Pericardium/ Pleura There is no pericardial effusion. There is no pleural effusion. MMode/2D Measurements & Calculations LVIDd: 3.9 cm RA long axis LVOT diam: 2.0 cm LVIDs: 2.4 cm LA A2 area: 13.5 cm AoV Opening FS: 39.5 % LA A4 area: 15.6 cm RA area IVSd: 1.2 cm LA length (vol) Ao root diam LVPWd: 1.00 cm : 12.1 cm LA vol: 39.2 ml RA vol asc Aorta Diam LA vol index : 28.5 ml RA Ao Arch Diam (Prox : 14.2 mm2 Trans): 2.9 cm IVC diam: 1.9 cm LV villegas. diameter/BSA LV sys. diameter/BSA (cm/m^2): 1.9 (cm/m^2): 1.2 Doppler Measurements & Calculations Ao V2 max MV P1/2t: 83.7 msec Med Peak E' Alverto TR max alverto : 186.2 cm/sec : 237.3 cm/sec Ao max PG MVA(VTI): 4.1 cm2 Lat Peak E' Alverto TR max PG : 13.9 mmHg : 17.4 cm/sec : 22.5 mmHg Ao mean PG PA V2 max : 91.6 cm/sec LVOT Max Alverto PA mean PG : 149.9 cm/sec PA Accel Time ELIZA(I,D): 2.6 cm : 0.12 sec sev ratio MV V2 mean MV P1/2t max alverto Ao V2 mean LV V1 max PG : 49.3 cm/sec : 120.2 cm/sec MV mean PG MVA(P1/2t): 2.6 cm2 Ao V2 VTI: 28.3 cm LV V1 VTI ELIZA(V,D): 2.5 cm2 : 23.9 cm MV V2 VTI: 18.1 cm PA V2 mean ELIZA indexed to BSA : 66.6 cm/sec (cm^2/m^2): 1.3 Electronically signed by: Rosa Elena Mcdonald on Reading Physician:02/02/2017 01:19 PM
--- NOTE | 2017-02-02 15:23 | NUR ---
Temperature, Family, Multidisciplinary Communication 0752 - When performing her morning assessments noted that her temperature was 39.5 C. Placed a cool cloth on her forehead and gave her 650mg of Tylenol PO. 0935 - Upon reassessment her temperature was 37.[address] Flores and the care team during morning multidisciplinary rounds and gave an update on her care and condition. Informed him that the daughter and patient say she had been taken off her diabetic medication over two years ago and no longer had diabetes. Noted that her blood glucose lab checks were fairly consistently in the 110s. Dr. Flores said her blood glucose no longer needed to be checked via finger stick. Spoke to Dr. Ferreira right after in the hallway and updated her on the patient's condition as well. [id number] - Melonie Anglin RN temporarily took over her care while this nurse attended mandatory education. 1050 - Temperature 37.[address] Flores's verbal orders yesterday she was not given more Tylenol as her temperature was less than 38.5 C. 1215 - Spoke with her younger daughter who said she wanted to speak with the Doctors regarding her mom's care as, "I haven't spoken to a Doctor since Wednesday." Dr. Damon stopped by to talk to her, giving her updates on her mom's condition. Paged Dr. Ferreira asking if she could come talk to the family when she has a chance. 1240 - Dr. Ferreira called back saying she would come talk to the daughter about 1330. 1316 - Spoke to Luis from x-ray. He wondered if she would be able to come down and get an x-ray. Notified him that she had poor mobility and was on enteric and droplet precautions and that a portable x-ray would be better. Luis said it would be arranged. MD alicea. Noted that the daughter was speaking to both Dr. Damon and Dr. Miller in the hallway. 1507 - Spoke to Dr. Ferreira in the hallway after she and the [facility] had seen the patient. She said that she had tried to go talk to the family, but it appeared they were not here anymore. She said there was no change to her care at this time. Care continues. Addendum: 02/02/17 at 1744 by BISHOP MATUTE RN 1615 - A long-time family friend came in and wanted an update from Dr. Damon. Dr. Miller was in the room assessing the patient and gave her a pulmonology update. Paged Dr. Damon who said he was unable to make it to talk to her today, but would stop by tomorrow when he can. Asked if her Hospitalist could be called to update the friend. Her temperature was 38.6 C. 162 - Paged Dr. Ferreira who called back. She was updated about her temperature and the plans to give Tylenol. Asked if she would be able to come talk to the friend. She came and talked to the friend and her other daughter who had just stopped by. 1729 - Retook her temperature which was 37.8 C. 1739 - Dr. Damon stopped by, but the friend and daughter had already left. Gave him an update on her care. Care continues.
--- NOTE | 2017-02-02 15:55 | DRSVH ---
PROCEDURE: X-RAY KUB ([id number]) INDICATIONS: megacolon? TECHNIQUE: One view of the abdomen acquired. COMPARISON: [facility], CR, XR KUB, 01/31/2017, 12:01. FINDINGS: Surgical changes and devices: Cholecystectomy and right flank surgical clips. Bowel: Bowel gas pattern is normal. Soft tissues: No suspicious abdominal calcifications. Visualized solid organ contours appear normal in size. Bones: No suspicious bony lesions. IMPRESSION: Normal bowel gas pattern. Dictated by: Butch Santoyo RRA Interpreted: Kadie Umanzor MD on 02/02/2017 at 15:54 Transcribed by: SERENITY on 02/02/2017 at 15:54 Approved by: Kadie Umanzor MD, PhD on 02/02/2017 at 16:38
--- NOTE | 2017-02-02 16:09 | DRSVH ---
PROCEDURE: US RENAL SONOGRAM INDICATIONS: acute kidney inury TECHNIQUE: Real-time scanning was performed of the kidneys and bladder, with image documentation. COMPARISON: None. FINDINGS: Kidneys: Kidneys are normal in size. Right kidney measures 10.0 cm long; left kidney measures 11.3 cm long. Right renal cortical thickness is 1.4 cm; left renal cortical thickness is 1.3 cm. Renal c ortical echotexture is normal. No hydronephrosis or nephrolithiasis. No suspicious solid mass lesio ns. Simple cyst involves the superior pole left kidney measuring roughly 44 mm Bladder: Charles catheter is present decompressing the urinary bladder. Miscellaneous: No free pelvic fluid. IMPRESSION: Simple left renal cyst otherwise kidneys are grossly normal. Dictated by: Butch Santoyo [facility] Interpreted: Kadie Umanzor MD on 02/02/2017 at 16:07 Transcribed by: SERENITY on 02/02/2017 at 16:08 Approved by: Kadie Umanzor MD, PhD on 02/02/2017 at 16:40
--- NOTE | 2017-02-02 17:57 | PCM.PNMED ---
Subjective Date of Service February 02, 2017 Subjective Ms. Brown is an 86-year-old female with history of non-insulin requiring type II diabetes, hypothyroid, and hypertension who presented to the ER for complaints of 2 days of high fever and cough. Today is hospital day 5. Overnight, patient had atrial fibrillation and was given a bolus of diltiazem and then was started on diltiazem at 5 ml/hour. Today, she states that she continues to have subjective fever, diarrhea, and a cough. She has some abdominal cramping today. She reports that her diarrhea is about the same in frequency. She does not have chest pain. This afternoon, I spoke with the patient's friend and patient's daughter, Elia, about patient's condition. Elia reports that she has not had a conversation with her mother before about her resuscitation status. She has a power of mason liner but not a healthcare power of mason liner. Prior to last Wednesday , she states that her mother was functioning independently and that she does not think that her mother had memory impairment. Based on H&P, patient is full code, and her daughter states that since it is what her mother wanted that she agrees with a full code status. She is concerned that her mother has not had enough food and nutrition intake since being admitted. Exam Vital Signs Vital Sign - Last Date Time Temp Pulse Resp B/P Pulse Ox O2 Delivery O2 Flow Rate FiO2 02/02/17 17:29 37.8 02/02/17 16:17 85 24 114/53 96 High flow 02/02/17 16:02 55 80 Intake and Output 02/01/17 02/01/17 02/02/17 Cumulative From/Thru 15:00 23:00 07:00 01/28/17 22:23 - 02/02/17 06:27 Intake Total 220 ml 665 ml 300 ml 37518 ml Output Total 375 ml 600 ml 3575 ml Balance 220 ml 290 ml -300 ml 7223 ml Intake Oral 380 ml 300 ml 2280 ml IV Total 220 ml 285 ml 8518 ml Output Urine Total 375 ml 600 ml 2875 ml Urine/Stool Mix 700 ml # Voids 4 # Bowel Movements 2 2 17 Exam Gen: Obese elderly female sitting upright in bed with an high flow nasal cannula in place who appears in mild respiratory distress. HEENT: EOMI, sclerae anicteric Neck: Soft, obese, nontender CV: Irregular rhythm with normal rate, soft II/ systolic murmur, no JVD noted Respiratory: Mild diffuse generalized bilateral wheezing, bibasilar rales noted , mild increase in respiratory effort, no accessory muscle usage, no cough noted during time of exam Abdomen: Obese, soft, nontender, and normal bowel sounds MSK: Trace bilateral non-pitting edema to the mid-anterior leg below the knee. Strength grossly intact and equal, no swollen or tender joints Neuro: Grossly intact, no focal weakness Skin: Warm, intact Psych: Drowsy but opens eyes spontaneously and follows commands and oriented to person and to place. Mildly stoic affect, linear thought processes, cooperative IVs and Medications Medications Reviewed: Medications were reviewed in detail Lab and Diagnostics Result Diagram: 02/02/1744902/02/17449 X-Rays, CTs and MRIs PROCEDURE: X-RAY KUB IMPRESSION: 1. Nonspecific bowel gas pattern without definite evidence of toxic megacolon at this time. However, recommend continued followup and if indicated further evaluation may be obtained with CT. Approved by: Aravind Shah M.D. on 01/31/2017 at 12:26 PROCEDURE: X-RAY CHEST ONE VIEW, PORTABLE IMPRESSION: 1. Increased bilateral areas of consolidation likely representing multifocal pneumonia. Recommend correlation clinically and followup to demonstrate resolution. Approved by: Aravind Shah M.D. on 01/31/2017 at 17:32 PROCEDURE: X-RAY KUB IMPRESSION: Normal bowel gas pattern. Approved by: Kadie Umanzor MD, PhD on 02/02/2017 at 16:38 12-lead ECG ECG Interpretation: Sinus arrhythmia, 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 View: Portable, 1 view Interpretation / Wet Read by: Wet read ED physician Cardiac Echo Impressions Echocardiogram Report Interpretation Summary The patient was in atrial fibrillation with heart rates between 85-115 bpm during the exam. Mild concentric left ventricular hypertrophy with hyperdynamic function and estimated ejection fraction of 65-70%. Normal right ventricle and both atria. Mild aortic valve sclerosis. No valvular regurgitation. The right ventricular systolic pressure is estimated at 28 mmHg assuming a right atrial pressure of 3 mm Hg. Mildly enlarged ascending aorta. Electronically signed by: Rosa Elena Mcdonald on Reading Physician: 01:19 PM Additional Diagnostics PROCEDURE: US RENAL SONOGRAM IMPRESSION: Simple left renal cyst otherwise kidneys are grossly normal. Approved by: Kadie Umanzor MD, PhD on 02/02/2017 at 16:40 Assessment & Plan 86-year-old female with history of non-insulin requiring type II diabetes, hypothyroid, and hypertension who presented to the ER for complaints of 2 days of high fever and cough. acute, active problems: Acute hypoxic respiratory failure, present on admission, due to viral adenovirus pneumonia and likely secondary bacterial pneumonia. -Patient now requiring high flow nasal cannula with 80% FiO2 -Echocardiogram as above, EF 65-70% -DuoNeb 4 times a day while awake, albuterol as needed -One dose of IV furosemide 40 mg given 02/01/17 and kidney function worsened -Started on tigecycline IV 02/01/17 and Zosyn IV 02/02/17 -Pulmonology consulted and following. Their time and recommendations are appreciated. Community-acquired pneumonia, likely viral pneumonia with a secondary bacterial pneumonia, present on admission, Presentation of cough, fever, lung infiltrate on x-ray is suspicious for pneumonia as above. Pt was also hypoxic with diffuse wheezing. Respiratory PCR+ adenovirus. -MRSA screen negative, S. pneumoniae and legionella screen negative, Blood cultures negative -Initially started on IV ceftriaxone and IV azithromycin on January 29 in the ED. discontinued 01/30, added doxycycline later given concern for atypical pneumonia , which was also discontinued -Started on tigecycline IV 02/01/17 and Zosyn IV 02/02/17 -Infectious disease consulted and following, their time and recommendations are appreciated Acute C. difficile colitis, Patient presented with 2 days of fever, diarrhea, URI symptoms. No history of recent antibiotic use. Has history of contact with family members with similar symptoms ( diarrhea and URI symptoms). C. difficile positive -Clinically stable, minimal abdominal symptoms, but diarrhea persistent -Baseline KUB was not suggestive of toxic megacolon and repeat KUB showed normal bowel gas pattern but will continue to monitor for changes in symptoms. Consider CT scan if continued concern. -Started vancomycin by mouth 01/30, added Flagyl IV 500 q8h for additional coverage, tigecycline IV as above for pneumonia with additional coverage for C.difficile. -Monitor stools closely, replete electrolytes as needed -Continue to monitor oral intake -Nutrition consultation Acute kidney injury, present on admission, Patient is unsure of any history of chronic kidney disease. Creatinine is 1.13 on admission, possibly prerenal with GI fluid loss or related to hypervolemic state currently. Probable acute tubular necrosis. -Initial creatinine 1.13 on day of admission, 4.45 today -Renal US as above showed simple renal cyst on left -Continue to trend creatinine -Avoid renal toxin, renally adjust medications -One dose of IV furosemide yesterday -Nephrology consulted and following. Their time and recommendations are appreciated. -D5 with sodium bicarbonate at 75 ml/hour started 02/02/17 Atrial fibrillation, acute, rate controlled -Noted on telemetry on 02/02/17 in the morning and confirmed with EKG -Given a dose of diltiazem and followed by diltiazem at 5 ml/hour -Palliative care consultation tomorrow to help with goals of care in coordination with family. chronic, stable problems Sinus Arrythmia, present on admission -Patient denies any previous cardiac history. -Admission EKG showed a sinus arrhythmia. -Patient not complaining of any chest pain, may be due to hypoxia -Place on telemetry for CV monitoring Thrombocytopenia with chronic normocytic anemia, present on admission -Platelets of 110 on admission. Patient's platelet was 106 in August, and was 145 in 2012. -Uncertain of etiology, but will need an outpatient workup. -Stable normocytic anemia with hgb of 11.6. -Continue to monitor and consider holding heparin Hypothyroid -Resume levothyroxine 50mcg Hypertension, present on admission -Hold home lisinopril, given low blood pressure trends Mixed urinary incontinence, present on admission Type II diabetes, present on admission -Patient reports her primary care provider does not think she has diabetes and removed all of her diabetes medication -Hgb A1c 6.4% -Continue to monitor morning blood glucose Morbid obesity, present on admission, BMI of 40.4 Tylenol when necessary for fever/pain Ibuprofen when necessary for fever/pain Zofran when necessary for nausea Pain Evaluation: Adequate Pain Control VTE Prophylaxis: Sub-Q Heparin (Unfractionated) VTE Mechanical Devices: Intermittant Pneumatic CD Resuscitation Status: CPR: Attempt Resuscitation Attending Statement The patient was seen and examined together with Dr. Ferreira on 02/02/2017 and I agree with the history, exam and plan as outlined in the note above. . Mariely Ferreira DO February 02, 2017 17:57 Thaddeus Hardin MD February 03, 2017 07:51
--- NOTE | 2017-02-02 20:44 | CONS ---
[address] [address] CONSULTATION REPORT PATIENT: Jacky ABDUL : 1930 MR#: [id number] ADMIT: 01/29/2017 JOB ID: [id number] DATE OF SERVICE: 02/02/2017 REQUESTING PHYSICIAN: Dr. April Chaney. REASON FOR CONSULTATION: Management of abnormal kidney function. Chief Complaint: High fever and cough. PRESENT ILLNESS: This is an 86-year-old, lady with significant past medical history of type 2 diabetes, hypertension and hypothyroid who presented to the emergency department with a complaint of high-grade fever and cough. The patient was admitted since January 29, 2017. I have gathered history from the medical record. Apparently, the patient experienced shortness of breath, generalized malaise and sore throat. The patient reported sick contacts. Initial septic workup was performed. The patient was found to have positive adenovirus per viral respiratory panel. She also had history of loose stool and C. diff was found to be positive. The initial chest x-ray showed right mid lung and left lower lobe pulmonary opacity representing pneumonia. The patient was evaluated by the infectious disease specialist. Initially, antibiotics were discontinued. She was initiated on vancomycin orally treating for C. diff colitis. Over the past 48 hours, the patient has become hypoxemic, had persistent high-grade temperature and worsening kidney function with metabolic acidosis. Her initial serum creatinine was 1.13 and gradually christa to 4.45 today with metabolic acidosis. Bicarb of 11. ABG showed pH of 7.326, pCO2 28.7, pO2 67, bicarb of 14.6. Given deteriorating respiratory status, the patient was started on IV Tigecycline to cover bacterial pneumonia per Dr. Damon. Overnight, the patient developed atrial fibrillation with RVR. She was started on IV diltiazem drip. Echocardiogram performed earlier today showed hyperdynamic function with ejection fraction of 65% to 70%. Right ventricular systolic pressure is estimated at 28 mmHg assuming a right atrial pressure of 3 mmHg. During my visit today, the patient is on high-flow oxygen. She is tachypneic. She is able to follow simple commands but confused at times, and she was not able to answer all my questions. PAST MEDICAL HISTORY: 1. Hypertension. 2. Dyslipidemia. 3. Type 2 diabetes. 4. Hypothyroid. 5. Obesity. 6. History of recurrent pneumonias. 7. Mixed urinary incontinence. 8. Peripheral vascular disease. PAST SURGICAL HISTORY: 1. Status post cholecystectomy. 2. Status post hysterectomy. FAMILY HISTORY: Positive for coronary artery disease in the family. SOCIAL HISTORY: Patient is a former smoker. No current use of alcohol, tobacco, or illicit drugs. ALLERGIES: No known drug allergies. REVIEW OF SYSTEMS: Unable to obtain review of systems completely due to altered mental status. PHYSICAL EXAMINATION: Vitals temperature 37.8, pulse 97, respiratory rate 28, blood pressure 113/48, O2 sats 92% on high-flow FiO2 80%. General appearance: Awake, alert, confused and oriented to time and person on high-flow oxygen mask. HEENT: No pallor. No jaundice. No JVD. No lymphadenopathy. No thyroid enlargement. Dry mucous membranes. Heart: Irregular rhythm. Tachycardic. No murmurs, rubs, or gallops. Lungs: Fine crackles at the bases noted. No wheezing. No rhonchi. Abdomen is soft, obese, mild distention. No rebound. No guarding. Active bowel sounds. Extremity: No significant edema on the lower extremities. No rash. No excoriation. No cyanosis. : Charles catheter in place with scant urine. LABORATORY: WBC 5.4, hemoglobin 11.9, platelets 108. Sodium 135, potassium 4.8, chloride 105, bicarb 11, BUN 52, creatinine 4.45, glucose 145, calcium 7.4, AST 82, total bilirubin 0.2, ALT 28, alkaline phos 31. ASSESSMENT: 1. Acute kidney injury in the setting of ongoing sepsis. The etiology of acute kidney injury is likely due to acute tubular necrosis. 2. Acute hypoxemic respiratory failure, worsening, suspected ARDS. 3. Viral pneumonia, adenovirus, with possibly superimposed bacterial pneumonia. 4. Clostridium difficile colitis. 5. Mixed anion gap metabolic acidosis and non-anion gap metabolic acidosis. 6. New-onset atrial fibrillation with rapid ventricular response. PLAN: It appears to me that this patient has acute tubular necrosis in the setting of ongoing severe sepsis. The patient now has worsening hypoxemia. Echocardiogram did not show any evidence of systolic or diastolic heart failure. Ejection fraction was 60% to 65%. I would like to continue to keep intake and output balanced. Will start patient on D5 water plus sodium bicarb 150 mEq runs at 75 mL/hour. We need to monitor her respiratory status closely. I am afraid that she might decompensate rapidly. I will order a kidney sonogram. Will repeat a UA, urine protein, creatinine, sodium and urea. We need to renally dose all medications. If the patient becomes anuric with worsening kidney function and metabolic acidosis, we will consider renal replacement therapy. Thank you for allowing me to participate in the care of your patient. We will monitor along with you. Total time spent: 60 minutes. MAYELIN
--- NOTE | 2017-02-02 21:47 | CONS ---
[address] [address] CONSULTATION REPORT PATIENT: Jacky ABDUL : 1930 MR#: [id number] ADMIT: 01/29/2017 JOB ID: [id number] DATE OF SERVICE: 02/02/2017 REQUESTING PHYSICIAN: Mariely Ferreira MD. REASON FOR CONSULTATION: Respiratory failure. HISTORY OF PRESENT ILLNESS: The patient is an 86-year-old, female, who was in her usual state of reasonably good health until early this month. In early January, she went to visit her son who was incarcerated in long-term, and five or six days later developed diarrhea. He had developed diarrhea 1-2 days after her visit to him. In addition, grandchildren who accompanied her to the visit in group home also developed diarrhea. These other family members had resolution of the diarrhea but hers persisted. She finally sought medical care on January 29, resulting in admission. At that time, she was noted to have dry cough and fever. She was treated with Zosyn for community-acquired pneumonia and subsequently found to have C. difficile enterocolitis. She was treated with IV metronidazole and p.o. vancomycin. Symptoms persisted with minimal improvement in diarrhea. Continues to have fevers though not quite as high as initially. Initially admitted to the [facility] because of some hypoxemia and cough. Because of worsening hypoxemia, was transferred to the PCC unit where she continued to worsen and subsequently required high-flow oxygen. The patient gives little to no history. Denies being short of breath in spite of obvious respiratory distress. Does not reply to other questions. However, her daughter says she is more clear mentally than she was yesterday. There has been no particular problem with sputum production. Continues to have fevers. Denies chest and abdominal pain. Unable to obtain any other history. According to the chart, she has a negative review of systems except for type 2 diabetes treated with oral agents, hypothyroidism and hypertension. ALLERGIES: None known. MEDICATIONS: On admission include: 1. Lisinopril. 2. Lovastatin. 3. Oxybutynin. 4. P.r.n. ibuprofen. No current tobacco abuse. Smoker in the past. Quitting a number of years ago. No other history available. Unable to obtain social or any other pertinent past histories. OBJECTIVE: Temperature 38.6, pulse mid 80s. Respiratory rate varies between 24 and 32, blood pressure 114/53. O2 sat on high-flow system with an FiO2 0.8, O2 flow 55 L a minute, results in an O2 saturation of 96%. General appearance: Well developed, rather obese, female, lying flat in bed. Moving all four extremities. Eyes: Conjunctivae are pink. Nose and throat could not be well examined. Neck: There is a slight tracheal tug. Chest shows diminished breath sounds bilaterally. Left is relatively clear. Right with coarse crackles in the right upper lung field anteriorly with an inspiratory squeaking, high-pitched sound. Unable to examine the lungs posteriorly. There is use of the abdominal muscles to assist in active exhalation. Heart: Regular rhythm. Rapid rate. Heart tones seem normal. Abdomen somewhat soft though hard to tell with the active use of the accessory muscles of respiration. Some bowel tones present. Extremities: No clubbing, cyanosis. Trace pedal edema possibly. Skin: No rash anterolaterally. LABORATORY DATA: Shows a white count of 5400 which has been in that range her entire four-day hospitalization. Differential shows a mild neutrophilia, though she was admitted with possibly a mild lymphocytosis. Hemoglobin stable at 11.9. Platelet count stable at 108,000. Sodium 135, potassium 4.8, chloride 105, CO2 is 11, BUN 52, and climbing. Creatinine 4.45 and climbing with an admission creatinine of 1.13. Calcium 7.4, albumin 2.9. Total bilirubin is normal at 0.2. AST slowly elevating at 82. ALT normal, 28. Alkaline phos normal at 31. Lactic acid, 48 hours ago, was 0.9. UA is relatively benign. Specific gravity 1.025. Urine protein is trace. Urine for Legionella antigen is negative. Urine for Streptococcus pneumoniae antigen is negative. Respiratory viral panel by PCR positive for adenovirus. Stool positive for C. difficile toxin. Influenza screen negative for influenza A and B. Blood cultures negative at 48 hours. MRSA PCR is negative. DIAGNOSTIC STUDIES: Chest x-ray yesterday shows no pleural effusions or pneumothorax. There is significant opacification in the right mid lung field with some patchy opacities at the left lung base. Some elevation of the right hemidiaphragm seemingly chronic. Arterial blood gases on an FiO2 of 0.8, high flow of 55 L a minute shows a pO2 of 95, pCO2 24, pH 7.32. Echocardiogram shows the patient to be in an atrial fibrillation with ventricular rates of 85-115. Left ventricular function is hyperdynamic, with an estimated ejection fraction of 65% to 70%. Right ventricular systolic pressure estimated at 28. There is collapse of IVC greater than 50% with suggestive of low right atrial pressure. ASSESSMENT: Evolving pneumonic process. Viral PCR positive for adenovirus. In addition, stool positive for Clostridium difficile. However, procalcitonin is starting to climb, currently at 4.7, whereas it was essentially undetectable on admission five days ago. Suggests that there is now superimposed bacterial infection. On a panoply of broad-spectrum antibiotics to cover usual and unusual bacteria, Clostridium difficile. Unfortunately, she is too sick for a CT scan. Would be useful to have a CT scan of both the chest, abdomen and pelvis. Currently can not tolerate being off high flow. Difficult to further evaluate the situation. Will be forced into position of following the patient. If she deteriorates, she will probably require intubation, and at that time, we can proceed with appropriate studies. Hopefully, the course will be one of improvement which might make further diagnostic assessments moot. Unfortunately, we have little to add at this point. We will follow very closely along with you and intercede as might be beneficial. Thank you so much, Dr. Ferreira for asking us to see this most interesting and engaging individual. Will follow her respiratory status closely along with you.
[2017-02-03] VITALS (13 sets, daily range): BP systolic 91–121; BP diastolic 40–77; PULSE 80–95; RESP 22–30; O2SAT 89–99
[2017-02-03] MEDS: Heparin 5,000 Unit/mL Inj SUBQ SCH ×4 (00:08→23:44)
[2017-02-03] MEDS: Diltiazem Inj 125 MG in 0.9% Sodium Chloride 100 ML, Pharmacy To Mix 1 EA IV SCH ×2 (02:50→23:31)
[2017-02-03] MEDS: Vancomycin 125 mg Oral Capsule PO SCH (02:50)
[2017-02-03 04:14] LABS: BASOPHILS % (AUTO) 0.2 % (0-3); EOSINOPHILS % (AUTO) 0.2 % (0-5); MONOCYTES % (AUTO) 1.2 % (4-12); Mean Corpuscular Hemoglobin 28.7 pg (27.0-35.0); NEUTROPHILS % (AUTO) 77.2 % (40-74); Platelet Count 122 bil/L (150-400)
[2017-02-03] MEDS: Sodium Acetate Inj 150 MEQ in Dextrose 5% 1,000 ML IV SCH ×2 (04:49→20:02)
[2017-02-03] MEDS: metroNIDAZOLE Inj 500 MG in IV Premix 1 EACH IV SCH ×3 (04:51→20:46)
[2017-02-03 05:27] LABS: Magnesium 2.1 mg/dL (1.6-2.6); Phosphorus 4.8 mg/dL (2.5-4.9)
--- NOTE | 2017-02-03 05:45 | NUR ---
Fever/Critical Lab Value/Skin Pt continues to be febrile, 650 mg Tylenol given x1 this shift and only mildly effective. Orders are to give Tylenol if fever is 38.5 and above. paged regarding Creatinine of 5.51. No new orders at this time. Pt continues to have loose stool, green in color. Skin in her von area is red and painful. Frequent cleaning and changing of pt as well as applying calmospetine to area. VSS and Tele Afib 80's to 90's, pt is on Cardizem gtt at 5mL/hr.
[2017-02-03] MEDS: Piperacillin-Tazo 3.375 Gm Inj 3.375 GM in Dextrose 5% Minibag Plus 50 ML IV SCH ×2 (08:13→20:03)
[2017-02-03] MEDS: Tigecycline Inj 50 MG in 0.9% Sodium Chloride 100 ML IV SCH ×2 (08:13→20:03)
[2017-02-03] MEDS: Albuterol-Ipratropium 3 mL Inhalation Solution NEB SCH ×4 (08:18→20:30)
[2017-02-03] MEDS ORDERED: Vancomycin 250 mg Oral Capsule PO SCH (08:30)
--- NOTE | 2017-02-03 08:39 | PROG NOTE ---
[address] [address] PROGRESS NOTE PATIENT: Jacky ABDUL : 1930 MR#: [id number] ADMIT: 01/29/2017 JOB ID: [id number] DATE: 02/03/2017 INFECTIOUS DISEASE FOLLOW UP NOTE: REASON FOR FOLLOWUP: Respiratory failure with adenoviral pneumonia as well as C. difficile colitis and rapidly climbing procalcitonin with ongoing renal failure. INTERVAL HISTORY: Overnight, the patient has slowly worsened. She remains extremely short of breath and with consistent fevers. She has minimal cough but a great deal of respiratory difficulty. She is aware of having both fever and chills. She denies having significant abdominal pain but has ongoing diarrhea. Over the past few hours, I have discussed this case with Nephrology attending, Pulmonary attending and the nurse at the bedside. PHYSICAL EXAMINATION: Reveals a critically ill woman. Temperature 38.3, pulse 90 and irregular. Respiratory rate 25-30, blood pressure 121/77, saturating 91% on high-flow nasal oxygen. The FiO2 was 80 and the flow rate is 55. This is slowly worsening. Her urine output during the night has slowed and is down to about 175 cc. Her stool number of bowel movements continues high, four bowel movements in the last 24 hours. The patient is still awake and can answer some questions but she is having respiratory difficulty and only answers one or two words. Eyes without conjunctivitis. Oral cavity is negative. Neck without adenopathy. The patient's lungs are notable for decreased breath sounds and crackles more so on the right than the left. Cardiac tones distant and irregular. Abdomen is fairly soft with hypoactive bowel tones throughout. There is no focal tenderness. She continues to have frequent loose stools. No new skin rashes noted and the patient has minimal, if any, peripheral edema. White blood count continues oddly low at 4000. Platelets are up a bit 122,000. The differential on that normal white count is almost normal which is perplexing. Creatinine steadily worse now 5.5, bicarbonate down to 14. LFTs slowly climbing. AST 128, ALT 35, alk phos 33. Procalcitonin continues to ghassan rocket. It was 0.1 when she came in five days ago. It has now reached 11.4. Urinalysis without white cells on admission. Urine Legionella and pneumococcal antigens negative. Multiple blood cultures all negative. MRSA screen negative. Stool positive for C. difficile by PCR. Respiratory viral secretions positive for adenovirus by PCR. IMAGING: Is notable for a KUB that I had ordered yesterday which shows no evidence of megacolon. Our last chest x-ray was two days ago, shows multifocal pneumonia. IMPRESSION: This patient is doing quite poorly. This overall scope of this case remains very mysterious to me. The patient was admitted with what seemed like simultaneous viral pneumonia due to adenovirus which was PCR proven as well as explosive diarrhea due to C. difficile colitis. She was initially on community-acquired pneumonia antibiotics. We stopped those when we got back the adenoviral PCR that was positive. She has been on appropriate therapy for C difficile throughout. Once her procalcitonin started to rise and her condition started to deteriorate, other appropriate antibiotics were added for community-acquired pneumonia including Tygacil which is approved for community-acquired pneumonia but also seems to have efficacy against C difficile. Despite seemingly appropriate interventions, the patient has steadily worsened with increasing metabolic acidosis, renal failure and respiratory failure. The rapid rise in procalcitonin suggests there may be a bacterial infection we are not adequately treating or that her C. difficile is simply worsening in spite of basically triple drug therapy with oral vanco, IV Flagyl and IV tigecycline. Over last 24 hours, I have discussed this case on multiple occasions with the hospitalist, the pulmonary legal nurse consultant, the nephrology legal nurse consultant and the ICU nurse. At this point, I see little else to change other than to continue with our current broad-spectrum coverage which includes the oral vanc, IV Flagyl, tigecycline and Zosyn. It may be that we are actually dealing primarily with adenoviral pneumonia which on occasion in adults can be very severe and even fatal, but the rising procalcitonin gives me pause and I think we should continue to look for bacterial sources as much as possible. The patient really is not producing any sputum so it does not offer us an avenue, however. RECOMMENDATIONS: 1. Will continue with this aggressive antibiotic and other support. 2. Should the patient worsen and be intubated, we would have the opportunity to do CT scans without contrast of the chest, abdomen and pelvis to help figure out if there is a localized or reversible source of infection. 3. Will continue to very closely monitor this case with you through the day.
--- NOTE | 2017-02-03 09:27 | ABG ---
DateTimeAnalyzed 09:23:00 -_ pH ____7.373 - 7.350 7.450 pCO2 ___27.5__ -mmHg 35.0 45.0 pO2 ___59.4__ -mmHg 69.0 116 HCO3- ___15.6__ -mmol/L 22.0 26.0 ABE ___-8.0__ -mmol/L -2.0 2.0 tHb ___11.6__ -g/dL O2Hb ___89.6__ -% COHb ____0.8__ -% MetHb ____0.9__ -% sO2 ___91.2__ -% FIO2 ___80.0__ -% Drawn By dh - Date/Time Notified____ 09:27:00 -_ Spontaneous_RR ___30.0__ -b/min Liter_Flow ___55.0__ -L/min Oxygen Device 1 __CANNULA - Notified By dh - Notified Whom Dr, Manish Housseya -___ B 760 -mmHg tO2 ___14.7__ -Vol% Adolph test _Positive -
--- NOTE | 2017-02-03 10:45 | NUR ---
Transfer It was determined this morning by her Doctors that it was in her best interested to transfer her to CCU so she could be intubated. Once her daughter arrived Dr. Lucas, Dr. Ferreira, and Dr. Flores explained the plan of care, answered her questions, and received an initial verbal permission to intubate her. Her daughter was teary and said that seeing her mother like this was hard. The Doctors and this nurse listened to her and answered her questions. [facility] at 1045. Gave report to Jo Sales RN. Introduced her to the daughter. Care continues.
[2017-02-03] MEDS ORDERED: Succinylcholine Chloride 20 mg/mL 5 mL Inj ONE (10:48)
[2017-02-03] MEDS ORDERED: Propofol 10 mg/mL 20 mL Inj ONE (10:48)
[2017-02-03] MEDS ORDERED: fentaNYL-PF 50 mCg/mL 2 mL Inj IVPUSH PRN (11:10)
[2017-02-03] MEDS ORDERED: Propofol Inj 1,000,000 MCG in IV Premix 1 EACH IV SCH (11:10)
[2017-02-03] MEDS ORDERED: 0.9% Sodium Chloride 500 ML IV ONE (11:25)
--- NOTE | 2017-02-03 11:36 | DRSVH ---
PROCEDURE: X-RAY CHEST ONE VIEW, PORTABLE ([id number]) INDICATIONS: post intubation check placement TECHNIQUE: One view of the chest was acquired. COMPARISON: [facility], CR, XR CHEST 1VW (PORTABLE), 02/01/2017, 18:07. FINDINGS: Surgical changes and devices: There is a new endotracheal tube with the tip 3.5 cm from the rhys. A nasogastric tube is demonstrated extending into the stomach with the tip not included on the curren t study. Lungs and pleura: There are small bilateral pleural effusions with increased bilateral areas of perih ilar consolidation. There is also increased pulmonary vascular prominence consistent with mild edema . No definite pneumothorax. Mediastinum: Mediastinal contours appear unchanged. Heart size is normal. Bones and chest wall: No suspicious bony lesions. Overlying soft tissues appear unremarkable. IMPRESSION: 1. Endotracheal tube tip 3.5 cm from the rhys. 2. Small bilateral pleural effusions with increased bilateral perihilar consolidation and mild pulmo nary edema. Dictated by: Aravind Shah M.D. on 02/03/2017 at 11:32 Approved by: Aravind Shah M.D. on 02/03/2017 at 11:34
--- NOTE | 2017-02-03 12:26 | ABG ---
DateTimeAnalyzed 12:20:00 -_ pH ____7.355 - 7.350 7.450 pCO2 ___29.5__ -mmHg 35.0 45.0 pO2 ___61.1__ -mmHg 69.0 116 HCO3- ___16.0__ -mmol/L 22.0 26.0 ABE ___-7.9__ -mmol/L -2.0 2.0 tHb ___12.5__ -g/dL O2Hb ___89.3__ -% COHb ____0.6__ -% MetHb ____1.0__ -% sO2 ___90.8__ -% FIO2 ___85.0__ -% PEEP ___10.0__ -cmH2O Set_RR ___20.0__ -b/min Vt __400.0__ -L Drawn By as - Date/Time Notified____ 12:25:00 -_ Spontaneous_RR ___20.0__ -b/min Oxygen Device 1 VENTILATOR - Notified By ams - Notified Whom DR de la Houssaye -___ B 761 -mmHg tO2 ___15.8__ -Vol% Adolph test _Positive -
[2017-02-03] MEDS: Chlorhexidine 0.12% 15 mL Oral Solution MT SCH ×4 (12:30→23:32)
[2017-02-03] MEDS: fentaNYL 2,500 mCg/250 mL 2,500 MCG in IV Premix 1 EACH IV PRN (12:39)
--- NOTE | 2017-02-03 12:54 | PCM.PNNEPH ---
Subjective Date of Service February 03, 2017 Subjective She has deteriorated overnight, became hypotensive, oliguric, and worsened SOB. Persistent hypoxemia noted. I was informed by the resident that the patient will be intubated and transferred to ICU very soon. Serum creatinine increased to 5.51 today. Exam Vital Signs Vital Sign - Last Date Time Temp Pulse Resp B/P Pulse Ox O2 Delivery O2 Flow Rate FiO2 02/03/17 12:33 89 108/46 93 85 02/03/17 12:15 Ventilator 02/03/17 11:29 37.5 24 02/03/17 08:18 55 Intake and Output 02/02/17 02/02/17 02/03/17 Cumulative From/Thru 15:00 23:00 07:00 01/28/17 22:23 - 02/03/17 06:55 Intake Total 756 ml 1525 ml 49827 ml Output Total 300 ml 175 ml 4050 ml Balance 456 ml 1350 ml 9029 ml Intake Oral 100 ml 100 ml 2480 ml IV Total 656 ml 1425 ml 68733 ml Output Urine Total 300 ml 175 ml 3350 ml Urine/Stool Mix 700 ml # Voids 4 # Bowel Movements 2 19 Exam General appearance: Awake, tachypnic,moderate distress. On high-flow oxygen mask. HEENT: No pallor. No jaundice. No JVD. No lymphadenopathy. No thyroid enlargement. Dry mucous membranes. Heart: Irregular rhythm. Tachycardic. No murmurs, rubs, or gallops. Lungs: Fine crackles at the bases noted. No wheezing. No rhonchi. Abdomen: Soft, obese, mild distention. No rebound. No guarding. Hypoactive bowel sounds. Extremity: No significant edema on the lower extremities. No rash. No excoriation. No cyanosis. : Charles catheter in place with scant urine. Lab and Diagnostics Result Diagram: 02/03/17 0400 02/03/17 0400 X-Rays, CTs and MRIs PROCEDURE: X-RAY KUB IMPRESSION: 1. Nonspecific bowel gas pattern without definite evidence of toxic megacolon at this time. However, recommend continued followup and if indicated further evaluation may be obtained with CT. Approved by: Aravind Shah M.D. on 01/31/2017 at 12:26 PROCEDURE: X-RAY CHEST ONE VIEW, PORTABLE IMPRESSION: 1. Increased bilateral areas of consolidation likely representing multifocal pneumonia. Recommend correlation clinically and followup to demonstrate resolution. Approved by: Aravind Shah M.D. on 01/31/2017 at 17:32 PROCEDURE: X-RAY KUB IMPRESSION: Normal bowel gas pattern. Approved by: Kadie Umanzor MD, PhD on 02/02/2017 at 16:38 12-lead ECG ECG Interpretation: Sinus arrhythmia, 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 View: Portable, 1 view Interpretation / Wet Read by: Wet read ED physician Cardiac Echo Impressions Echocardiogram Report Interpretation Summary The patient was in atrial fibrillation with heart rates between 85-115 bpm during the exam. Mild concentric left ventricular hypertrophy with hyperdynamic function and estimated ejection fraction of 65-70%. Normal right ventricle and both atria. Mild aortic valve sclerosis. No valvular regurgitation. The right ventricular systolic pressure is estimated at 28 mmHg assuming a right atrial pressure of 3 mm Hg. Mildly enlarged ascending aorta. Electronically signed by: Rosa Elena Mcdonald on Reading Physician: 01:19 PM Additional Diagnostics PROCEDURE: US RENAL SONOGRAM IMPRESSION: Simple left renal cyst otherwise kidneys are grossly normal. Approved by: Kadie Umanzor MD, PhD on 02/02/2017 at 16:40 Plan Impression 1. Acute kidney injury in the setting of ongoing sepsis secondary to ATN. 2. Acute hypoxemic respiratory failure, worsening, intubation required. 3. Viral pneumonia, adenovirus, with possibly superimposed bacterial pneumonia. 4. Clostridium difficile colitis. 5. Mixed anion gap metabolic acidosis and non-anion gap metabolic acidosis. 6. New-onset atrial fibrillation with rapid ventricular response. Plan: Once pt is stabilized, I will arrange for temporary HD cath placement. We will initiate HD today. Renally dose meds. Avoid nephrotoxins. PO/IV abx per ID. Continue D5W+HCO3 75 ml/hr for now. Prognosis is guarded. primary team. Mir Davidson MD February 03, 2017 12:54
[2017-02-03] MEDS ORDERED: Propofol 10,000 mCg/mL 100 mL Inj ONE (13:23)
--- NOTE | 2017-02-03 13:38 | NUR ---
Pt is discharged from PT services at this time due to decline in medical status and recent intubation. Please re-order PT when it is appropriate for pt to participate in skilled PT interventions.
[2017-02-03] MEDS ORDERED: Sodium Chloride LOK Flush 10 mL Syringe IVFLUSH PRN ×2 (14:45)
--- NOTE | 2017-02-03 14:52 | PCM.PROC ---
Procedure Note Date of Service: February 03, 2017 Pre Procedure Diagnosis: Severe sepsis requiring intubation and sedation Post Procedure Diagnosis: Severe sepsis requiring intubation and sedation Procedure: Ultrasound guided right IJ central line placement Provider and Charge Attendant: MD Holly Medina DO Indication for Procedure: Superior central IV access Procedural Analgesia: Patient intubated with fentanyl drip for analgesia and propofol drip for sedation Procedure Details: The procedure was discussed with the patient's daughters, Nany and Debbie. Reviewed risks, benefits and complications. Debbie signed the consent form for placement of the central line. Ultrasound was used to visualize the right IJ. Patient was then prepped and draped in the sterile fashion. The ultrasound was also draped in the sterile fashion. The right IJ was once again visualized. The patient was receiving continuous IV infusions of fentanyl and propofol for analgesia and sedation. The needle was inserted into the right neck under ultrasound guidance and placed into the IJ. A guidewire was then threaded through the needle. The needle was removed with the wire remaining in place. A small incision was made with a scalpel and then a dilator placed over the guidewire, then removed. Next , the triple lumen catheter was threaded over the guidewire and placed into the IJ. The guidewire was removed as the catheter was inserted. The catheter was inserted to 17cm in depth. The IV therapy nurse, Luis, then placed the dressing in a sterile fashion. Specimen: None Post Procedure Plan: Chest x-ray to confirm placement of the central line Attending Statement I was personally present and immediately available throughout the entire procedure and agree with the description of the procedure above. Holly Lucas DO February 03, 2017 14:52 Thaddeus Hardin MD February 05, 2017 08:01
--- NOTE | 2017-02-03 14:56 | DRSVH ---
PROCEDURE: X-RAY CHEST ONE VIEW, PORTABLE ([id number]) INDICATIONS: RIJ/ETT TECHNIQUE: One view of the chest was acquired. COMPARISON: [facility], CT, CHEST W/O CONTRAST, 03/12/2010, 8:09. [facility], CR, XR CHEST 1VW (PORTABLE), 02/01/2017, 18:07. [facility], CR, XR CHEST 1VW (SERGIO BLE), 01/30/2017, 14:16. [facility], CR, XR CHEST 1VW (PORTABLE), 02/03/2017, 11:03. FINDINGS: Surgical changes and devices: There is a right IJ central line with the tip in the area of central SV C. A ventricular tube is seen with the tip 3 cm above rhys. Lungs and pleura: Increased right mid lung density. Small bilateral pleural effusions. No pneumothor ax. There is left basilar consolidation and/or atelectasis. Mediastinum: Mediastinal contours appear normal. Heart size is normal. Bones and chest wall: No suspicious bony lesions. Overlying soft tissues appear unremarkable. IMPRESSION: 1. The endotracheal tube and right IJ central line are as described. 2. Increase in size of right mid lung density. Cannot rule out a mass. 3. Bilateral pleural effusions. There is left basilar consolidation or atelectasis. Dictated by: Yodit Schwarz M.D. on 02/03/2017 at 14:44 Approved by: Yodit Schwarz M.D. on 02/03/2017 at 14:54
--- NOTE | 2017-02-03 15:28 | PCM.PNMED ---
Subjective Date of Service February 03, 2017 Subjective PULMONOLOGY/CRITICAL CARE PROGRESS NOTE Patient seen early this AM while on hi-flow nasal cannula. Minimally responsive to questioning - nodding yes to the occasional question but not verbalizing any discomfort or concern. Upon reevaluation in the late morning patient doing more work of breathing and appearing more tired. Decision made to move the patient to the CCU and intubate. Patient also requiring central line placement and femoral line placement for a temporary dialysis catheter. Exam Vital Signs Vital Sign - Last Date Time Temp Pulse Resp B/P Pulse Ox O2 Delivery O2 Flow Rate FiO2 02/03/17 14:55 91 93/53 92 100 02/03/17 12:15 Ventilator 02/03/17 11:29 37.5 24 02/03/17 08:18 55 Intake and Output 02/02/17 02/02/17 02/03/17 Cumulative From/Thru 15:00 23:00 07:00 01/28/17 22:23 - 02/03/17 06:55 Intake Total 756 ml 1525 ml 90424 ml Output Total 300 ml 175 ml 4050 ml Balance 456 ml 1350 ml 9029 ml Intake Oral 100 ml 100 ml 2480 ml IV Total 656 ml 1425 ml 22940 ml Output Urine Total 300 ml 175 ml 3350 ml Urine/Stool Mix 700 ml # Voids 4 # Bowel Movements 2 19 Exam Approx. 0815 on 02/03/17: Gen: Obese elderly female sitting upright in bed with an high flow nasal cannula in place who appears in moderate respiratory distress. HEENT: PERRLA, EOMI, sclerae anicteric Neck: Obese, tracheal tug noted, no JVD appreciated CV: Irregular rhythm with normal rate, no murmur appreciated Respiratory: Inspiratory wheeze noted throughout the lung howe, right side coarse and diminished Abdomen: Obese, soft, nontender, and normal bowel sounds Extr: Trace bilateral non-pitting edema to the mid-anterior leg below the knee; no cyanosis, no clubbing; lower extremities tender to palpation Radial pulse present and equal bilaterally, dorsalis pedis pulse difficult to appreciate bilaterally Charles catheter present Approx 1500 on 02/03/17: Patient intubated and sedated in the ICU ET and OG tube placed Right IJ placed Two peripheral IVs - one in each upper extremity IVs and Medications Medications Reviewed: Medications were reviewed in detail Lab and Diagnostics Result Diagram: 02/03/1739902/03/17399 Assessment & Plan 1) Acute hypoxic respiratory failure. - Likely secondary to viral pneumonia. - Patient failed hi-flow nasal cannula and required intubation. Vent settings FiO2 1.0, PEEP 13, rate 20, tidal volume 400. - ABG qAM and as needed for ventilator adjustment. O2 saturation goals 90-94%. - Fentanyl for analgesia and propofol for sedation as long as her blood pressure tolerates this. Could consider lorazepam IV push as needed for sedation. - Nebulizer treatments as needed. 2) Viral pneumonia with possible concurrent/secondary bacterial pneumonia. - Positive for adenovirus. No other positive viral or bacterial cultures from the respiratory tract. - Opacification (consolidation?) seen on chest x-ray on the right in the mid lung field. Not entirely consistent with adenovirus. - Would like the patient to have CTA of the chest to better characterize this opacification and also rule out pulmonary embolism. - Consider new sputum culture if able to obtain a good sample out of the ET tube. - May consider bronchoscopy in the near future if the chest CT does not yield enough information. - Dr. Damon of infectious disease has been consulted. Antimicrobials per his expertise. 3) C. diff colitis. - Concern for bacterial superinfection as patient has become progressively more ill over the course of admission despite treatment with appropriate antibiotics. - Continue to monitor procalcitonin. - Continue antibiotics as per Dr. Damon. 4) Acute kidney injury of chronic kidney disease. - Dr. Salmeron of nephrology has been consulted. - Plan for temporary dialysis catheter placement today and likely initiation of hemodialysis. - Fluid management per nephrology. GI Prophylaxis: H2 kyra VTE Prophylaxis: Sub-Q Heparin (Unfractionated), SCDs Resuscitation Status: CPR: Attempt Resuscitation Attending Statement The patient was seen and examined together with Dr. Lucas on 02/03/2017 and I agree with the history, exam and plan as outlined in the note above. Holly Lucas DO February 03, 2017 15:28 Bijan Miller MD Mar 01, 2017 11:13 -Nephrology consulted and following. Their time and recommendations are appreciated. -D5 with sodium bicarbonate at 75 ml/hour started 02/02/17 Atrial fibrillation, acute, rate controlled -Noted on telemetry on 02/02/17 in the morning and confirmed with EKG -Given a dose of diltiazem and followed by diltiazem at 5 ml/hour -Palliative care consultation tomorrow to help with goals of care in coordination with family. chronic, stable problems Sinus Arrythmia, present on admission -Patient denies any previous cardiac history. -Admission EKG showed a sinus arrhythmia. -Patient not complaining of any chest pain, may be due to hypoxia -Place on telemetry for CV monitoring Thrombocytopenia with chronic normocytic anemia, present on admission -Platelets of 110 on admission. Patient's platelet was 106 in August, and was 145 in 2012. -Uncertain of etiology, but will need an outpatient workup. -Stable normocytic anemia with hgb of 11.6. -Continue to monitor and consider holding heparin Hypothyroid -Resume levothyroxine 50mcg Hypertension, present on admission -Hold home lisinopril, given low blood pressure trends Mixed urinary incontinence, present on admission Type II diabetes, present on admission -Patient reports her primary care provider does not think she has diabetes and removed all of her diabetes medication -Hgb A1c 6.4% -Continue to monitor morning blood glucose Morbid obesity, present on admission, BMI of 40.4 Tylenol when necessary for fever/pain Ibuprofen when necessary for fever/pain Zofran when necessary for nausea VTE Prophylaxis: Sub-Q Heparin (Unfractionated) VTE Mechanical Devices: Intermittant Pneumatic CD Resuscitation Status: CPR: Attempt Resuscitation Holly Lucas DO February 03, 2017 15:28
--- NOTE | 2017-02-03 15:49 | PROCED ---
[address] [address] PROCEDURE NOTE PATIENT: Jacky ABDUL : 1930 MR#: [id number] ADMIT: 01/29/2017 JOB ID: [id number] DATE OF SERVICE: 02/03/2017 SURGEON: Rainer Sales M.D. PREOPERATIVE DIAGNOSIS(ES): POSTOPERATIVE DIAGNOSIS(ES): PROCEDURE: Intubation. The patient is an 86-year-old female with respiratory failure. I was asked to intubate the patient so that she could be mechanically ventilated. The patient was examined briefly preprocedure and discussed procedure with patient and the patient's daughter. The patient was pre-oxygenated and then given 2 mg of Versed, 100 mg of propofol. Looked initially with a glide scope and had grade 2 view. Was unable to pass the ET tube because the cords were closed. So, we then pushed 100 mg of succinylcholine, mask ventilated the patient. Sats briefly dipped into the 80s. She was easy to mask ventilate. Sats came up into the low 90s. The patient's second look with a glide scope and a 7.5 ET tube was passed using a stylet ET tube that was secured to 24 cm at the teeth. Color change on the end-tidal CO2 detector and bilateral breath sounds confirmed ET tube placement. Chest x-ray is pending.
--- NOTE | 2017-02-03 16:37 | ABG ---
DateTimeAnalyzed 12:20:00 -_ pH ____7.355 - 7.350 7.450 pCO2 ___29.5__ -mmHg 35.0 45.0 pO2 ___61.1__ -mmHg 69.0 116 HCO3- ___16.0__ -mmol/L ABE ___-7.9__ -mmol/L tHb ___12.5__ -g/dL O2Hb ___89.3__ -% COHb ____0.6__ -% MetHb ____1.0__ -% sO2 ___90.8__ -% FIO2 ___85.0__ -% Drawn By as - Date/Time Notified____ 12:25:00 -_ Notified By ams - Notified Whom DR de la Houssaye -___ B 761 -mmHg tO2 ___15.8__ -Vol% Adolph test _Positive -
[2017-02-03] MEDS: Vancomycin 100 mg/mL Oral Solution PO SCH ×2 (16:58→20:04)
[2017-02-03] MEDS: Famotidine Inj 20 MG in IV Premix 1 EACH IV SCH (17:28)
--- NOTE | 2017-02-03 18:35 | DRSVH ---
PROCEDURE: CT ANGIO CHEST PULMONARY EMBOLISM ([id number]) INDICATIONS: WORSENING OXYGENATION TECHNIQUE: After the administration of intravenous contrast, 2 mm thick sections acquired from the pulmonary api jose carlos to the posterior costophrenic angles. 3-dimensional maximum intensity projection (MIP) coronal a nd sagittal reformats were then acquired through the thorax. For radiation dose reduction, the follo wing was used: automated exposure control, adjustment of mA and/or kV according to patient size. COMPARISON: [facility], CT, BRAIN W/O CONTRAST, 06/08/2013, 17:11. FINDINGS: Image quality: Adequate. Pulmonary arteries: Pulmonary arteries are normal in size, and demonstrate no intraluminal filling d efects to suggest central pulmonary embolism. Peripheral pulmonary arteries are poorly identified due to artifact. Lungs and pleura: Dense consolidation in the left perihilar lung and lower lobes with minimal left up per lobe consolidation. Dense right middle and lower lobe consolidation. Further consolidation or les s likely an early cavitated right apical lesion measuring 1.4 CM ( se 7 im 12). Mediastinum: Mediastinal and hilar lymphadenopathy.. ET and enteric tubes in the expected location. Bones and chest wall: There is edema and soft tissue stranding adjacent to the right internal jugular vein at the insertion of a right IJ central venous catheter. Grossly normal osseous structures. Abdomen: Visualized upper abdominal solid organs appear normal in the early arterial phase of enhanc ement. IMPRESSION: 1. No main, left or right, or first order pulmonary artery branch emboli. Smaller pulmonary arteries are obscured by motion. 2. Dense bilateral consolidation most consistent with pneumonia. Mediastinal and hilar lymphadenopath y is most likely reactive. Right apical consolidation may demonstrate very early cavitation. Recommen d clinical followup to resolution with further chest CT as needed to exclude any underlying malignanc y. 3. Soft tissue stranding about a right IJ central venous catheter insertion site. This may represent postoperative change if the line was recently placed. Otherwise, infection or venous thrombus cannot be excluded. 4. ET and enteric tubes. Dictated by: Luis Ramirez M.D. on 02/03/2017 at 18:16 Approved by: Luis Ramirez M.D. on 02/03/2017 at 18:28
--- NOTE | 2017-02-03 18:42 | PCM.PNMED ---
Subjective Date of Service February 03, 2017 Subjective Ms. Brown is an 86-year-old female with history of non-insulin requiring type II diabetes, hypothyroid, and hypertension who presented to the ER for complaints of 2 days of high fever and cough. Today is hospital day 6. Overnight, patient's creatinine increased further. This morning, pt was only able to answer in 1 word sentences or by nodding her head. Patient denied having shortness of breath. She continues to have a fever and diarrhea. Discussed with patient's daughter, Elia, the plan to proceed with intubation, central venous access, and hemodialysis. Exam Vital Signs Vital Sign - Last Date Time Temp Pulse Resp B/P Pulse Ox O2 Delivery O2 Flow Rate FiO2 02/03/17 08:18 80 30 90 HFNC 02/03/17 08:18 55 80 02/03/17 07:59 38.0 116/51 Intake and Output 02/02/17 02/02/17 02/03/17 Cumulative From/Thru 15:00 23:00 07:00 01/28/17 22:23 - 02/03/17 06:55 Intake Total 756 ml 1525 ml 37822 ml Output Total 300 ml 175 ml 4050 ml Balance 456 ml 1350 ml 9029 ml Intake Oral 100 ml 100 ml 2480 ml IV Total 656 ml 1425 ml 64490 ml Output Urine Total 300 ml 175 ml 3350 ml Urine/Stool Mix 700 ml # Voids 4 # Bowel Movements 2 19 Exam Gen: Obese elderly female sitting upright in bed with a high flow nasal cannula in place who appears in moderate respiratory distress. HEENT: EOMI, sclerae anicteric Neck: Soft, obese CV: Irregular rhythm with normal rate, soft II/ systolic murmur, no JVD noted Respiratory: Mild diffuse generalized bilateral wheezing, bibasilar rales noted , mild increase in respiratory effort, no accessory muscle usage, no cough noted during time of exam Abdomen: Obese, soft, nontender, and normal bowel sounds MSK: Trace bilateral non-pitting edema to the mid-anterior leg below the knee. Strength grossly intact and equal, no swollen or tender joints Neuro: Grossly intact, no focal weakness Skin: Warm, intact Psych: Drowsy but opens eyes spontaneously and follows commands. Stoic affect, linear thought processes, cooperative IVs and Medications Medications Reviewed: Medications were reviewed in detail Lab and Diagnostics Result Diagram: 02/03/1739902/03/17399 X-Rays, CTs and MRIs PROCEDURE: X-RAY KUB IMPRESSION: 1. Nonspecific bowel gas pattern without definite evidence of toxic megacolon at this time. However, recommend continued followup and if indicated further evaluation may be obtained with CT. Approved by: Aravind Shah M.D. on 01/31/2017 at 12:26 PROCEDURE: X-RAY CHEST ONE VIEW, PORTABLE IMPRESSION: 1. Increased bilateral areas of consolidation likely representing multifocal pneumonia. Recommend correlation clinically and followup to demonstrate resolution. Approved by: Aravind Shah M.D. on 01/31/2017 at 17:32 PROCEDURE: X-RAY KUB IMPRESSION: Normal bowel gas pattern. Approved by: Kadie Umanzor MD, PhD on 02/02/2017 at 16:38 12-lead ECG ECG Interpretation: Sinus arrhythmia, 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 View: Portable, 1 view Interpretation / Wet Read by: Wet read ED physician Cardiac Echo Impressions Echocardiogram Report Interpretation Summary The patient was in atrial fibrillation with heart rates between 85-115 bpm during the exam. Mild concentric left ventricular hypertrophy with hyperdynamic function and estimated ejection fraction of 65-70%. Normal right ventricle and both atria. Mild aortic valve sclerosis. No valvular regurgitation. The right ventricular systolic pressure is estimated at 28 mmHg assuming a right atrial pressure of 3 mm Hg. Mildly enlarged ascending aorta. Electronically signed by: Rosa Elena Mcdonald on Reading Physician: 01:19 PM Additional Diagnostics PROCEDURE: US RENAL SONOGRAM IMPRESSION: Simple left renal cyst otherwise kidneys are grossly normal. Approved by: Kadie Umanzor MD, PhD on 02/02/2017 at 16:40 Assessment & Plan 86-year-old female with history of non-insulin requiring type II diabetes, hypothyroid, and hypertension who presented to the ER for complaints of 2 days of high fever and cough. acute, active problems: Acute hypoxic respiratory failure, present on admission, due to viral adenovirus pneumonia and likely secondary bacterial pneumonia. -Patient was requiring high flow nasal cannula with 80% FiO2 and continued to be in moderate respiratory stress. Pt is now sedated and intubated. -Echocardiogram as above, EF 65-70% -DuoNeb 4 times a day while awake, albuterol as needed -One dose of IV furosemide 40 mg given 02/01/17 and kidney function worsened -Started on tigecycline IV 02/01/17 and Zosyn IV 02/02/17 -Pulmonology consulted and following. Their time and recommendations are appreciated. -CTA chest performed Severe sepsis, acute, active. -Patient meets criteria with temperature 38.4 degrees C, HR 92 bpm, respiratory rate 32, with pneumonia and C. difficile infection. She also has hypotension and acute kidney injury. -Antibiotics as below -If vasopressors needed, consider avoiding norepinephrine because of her atrial fibrillation -Continue to monitor Community-acquired pneumonia, likely viral pneumonia with a secondary bacterial pneumonia, present on admission, Presentation of cough, fever, lung infiltrate on x-ray is suspicious for pneumonia as above. Pt was also hypoxic with diffuse wheezing. Respiratory PCR+ adenovirus. -MRSA screen negative, S. pneumoniae and legionella screen negative, Blood cultures negative -Initially started on IV ceftriaxone and IV azithromycin on January 29 in the ED. discontinued 01/30, added doxycycline later given concern for atypical pneumonia , which was also discontinued -Started on tigecycline IV 02/01/17 and Zosyn IV 02/02/17 -Infectious disease consulted and following, their time and recommendations are appreciated Acute kidney injury, present on admission, Patient is unsure of any history of chronic kidney disease. Creatinine is 1.13 on admission, possibly prerenal with GI fluid loss or related to hypervolemic state currently. Probable acute tubular necrosis. Worsening. -Initial creatinine 1.13 on day of admission, 5.51 today -Renal US as above showed simple renal cyst on left -Continue to trend creatinine -Avoid renal toxin, renally adjust medications -One dose of IV furosemide 02/01/17 -Nephrology consulted and following. Their time and recommendations are appreciated. -Fluids per nephrology -Pt receiving hemodialysis today Acute C. difficile colitis, Patient presented with 2 days of fever, diarrhea, URI symptoms. No history of recent antibiotic use. Has history of contact with family members with similar symptoms ( diarrhea and URI symptoms). C. difficile positive -Clinically stable, minimal abdominal symptoms, but diarrhea persistent and mildly improving. -Baseline KUB was not suggestive of toxic megacolon and repeat KUB showed normal bowel gas pattern but will continue to monitor for changes in symptoms. Consider CT scan if continued concern. -Started vancomycin by mouth 01/30, added Flagyl IV 500 q8h for additional coverage, tigecycline IV as above for pneumonia with additional coverage for C.difficile. -Monitor stools closely, replete electrolytes as needed -Nutrition consultation Atrial fibrillation, acute, rate controlled -Noted on telemetry on 02/02/17 in the morning and confirmed with EKG -Given a dose of diltiazem and followed by diltiazem at 5 ml/hour -Continue to monitor Acute metabolic acidosis, active. chronic, stable problems Sinus Arrythmia, present on admission -Patient denied any previous cardiac history. -Admission EKG showed a sinus arrhythmia. -Patient not complaining of any chest pain, may be due to hypoxia -Place on telemetry for CV monitoring Thrombocytopenia with chronic normocytic anemia, present on admission -Platelets of 110 on admission. Patient's platelet was 106 in August, and was 145 in 2012. -Uncertain of etiology, but will need an outpatient workup. -Stable normocytic anemia with hgb of 11.6. -Continue to monitor and consider holding heparin Hypothyroidism -Resume levothyroxine 50mcg Hypertension, present on admission -Hold home lisinopril, given low blood pressure trends Mixed urinary incontinence, present on admission Type II diabetes, present on admission -Patient reports her primary care provider does not think she has diabetes and removed all of her diabetes medication -Hgb A1c 6.4% -Continue to monitor morning blood glucose Morbid obesity, present on admission, BMI of 40.4 Tylenol when necessary for fever/pain Ibuprofen when necessary for fever/pain Zofran when necessary for nausea Pain Evaluation: Adequate Pain Control VTE Prophylaxis: Sub-Q Heparin (Unfractionated) VTE Mechanical Devices: Intermittant Pneumatic CD Resuscitation Status: CPR: Attempt Resuscitation Attending Statement The patient was seen and examined together with Dr. Ferreira on 02/03/2017 and I agree with the history, exam and plan as outlined in the note above. . Mariely Ferreira DO February 03, 2017 08:29 Thaddeus Hardin MD February 05, 2017 07:32
--- NOTE | 2017-02-03 18:46 | NUR ---
CCU transfer: Pt transferred to CCU for resp distress. Intubated, current vent settings 100/13/20/400, scant secretions, O2 sats 95%. OG to low continuous suction, approx 175mL coffee ground appearing liquid out, MD aware. Charles to gravity, poor urine output, incontinent of stool, von care provided as needed. Skin to labia/buttocks is red/macerated, calmoseptine ointment applied, pt not in brief to assist with airflow. Central line and temp HD cath placed at bedside, pt does not tolerate lying flat for long. Currently dialyzing, care ongoing.
--- NOTE | 2017-02-03 20:15 | NUR ---
Dialysis note First HD tx. 2 hrs. 3K bath. QB 250. R femoral catheter A-V V-A. No hourly Heparin. See DTR for complete vitals. Stable tx. Pt intubated/sedated/appearing comfortable. Hep serologies drawn. Second HD tomorrow. Cath dwelled with 1000/1 U heparin.
--- NOTE | 2017-02-03 20:47 | ABG ---
DateTimeAnalyzed 20:43:00 -_ pH ____7.465 - 7.350 7.450 pCO2 ___31.0__ -mmHg 35.0 45.0 pO2 ___67.4__ -mmHg 69.0 116 HCO3- ___22.0__ -mmol/L 22.0 26.0 ABE ___-0.6__ -mmol/L -2.0 2.0 tHb ___11.1__ -g/dL O2Hb ___93.2__ -% COHb ____0.8__ -% MetHb ____1.0__ -% sO2 ___94.9__ -% FIO2 __100.0__ -% PRVC 20 - PEEP ___13.0__ -cmH2O Vt __400.0__ -L Drawn By blf - Date/Time Notified____ 20:47:00 -_ Spontaneous_RR ___22.0__ -b/min Oxygen Device 1 VENTILATOR - B 762 -mmHg tO2 ___14.6__ -Vol% OrderingPhysicianInitials bak - Adolph test _Positive -
[2017-02-03] MEDS ORDERED: 0.9% Sodium Chloride 1,000 ML IV ONE (21:05)
--- NOTE | 2017-02-03 23:00 | PCM.PROC ---
Procedure Note Date of Service: February 03, 2017 Pre Procedure Diagnosis: LEENA Post Procedure Diagnosis: LEENA Procedure: Temporary HD catheter placement Provider and Director Investor Relations: Dr. Davidson Director Investor Relations Dr. Montes Indication for Procedure: LEENA Procedural Analgesia: None. Patient is intubated and sedated. Procedure Details: Consent: Detailed explanation of the procedure, treatment options, risks including but not limited to infection and bleeding, and benefits were explained to the patient. A written informed consent was obtained verbally by her family. Technique: A time out was preformed identifying the correct procedure, the correct location with the nursing staff. The right groin was prepped with 2% chlorhexidine and draped with a full length sterile sheet in the usual fashion. The right femoral vein was accessed under ultrasound guidance with an 18 gauge thin wall needle. A MAC was inserted via the Seldinger technique. Blood was withdrawn from all lumens and flushed with normal saline. The catheter was sutured in place and a sterile dressing was applied over the site prior to removal of drapes. The patient tolerated the procedure well and there were no complications. EBL: 15 mL. Complication: None Mir Davidson MD February 03, 2017 23:00
[2017-02-04] VITALS (14 sets, daily range): BP systolic 84–116; BP diastolic 38–80; PULSE 87–115; RESP 18–24; O2SAT 86–97
[2017-02-04 00:24] LABS: BASOPHILS % (AUTO) 0 % (0-3); EOSINOPHILS % (AUTO) 0 % (0-5); Mean Corpuscular Hemoglobin 28.2 pg (27.0-35.0); Mean Corpuscular Volume 84.4 fL (81-100); Platelet Count 97 bil/L (150-400)
[2017-02-04 01:19] LABS: MONOCYTES % (AUTO) 3 % (4-12); NEUTROPHILS % (AUTO) 69 % (40-74)
[2017-02-04 01:35] LABS: Magnesium 1.7 mg/dL (1.6-2.6); Phosphorus 4.7 mg/dL (2.5-4.9)
[2017-02-04] MEDS: Vancomycin 100 mg/mL Oral Solution PO SCH ×4 (03:27→20:45)
[2017-02-04] MEDS: Chlorhexidine 0.12% 15 mL Oral Solution MT SCH ×5 (03:27→20:45)
[2017-02-04] MEDS: metroNIDAZOLE Inj 500 MG in IV Premix 1 EACH IV SCH ×3 (03:27→20:44)
[2017-02-04] MEDS ORDERED: Propofol 10,000 mCg/mL 100 mL Inj ONE (03:31)
[2017-02-04] MEDS: Propofol Inj 1,000,000 MCG in IV Premix 1 EACH IV SCH ×3 (03:49→19:37)
--- NOTE | 2017-02-04 05:23 | ABG ---
DateTimeAnalyzed 05:17:00 -_ pH ____7.441 - 7.350 7.450 pCO2 ___31.0__ -mmHg 35.0 45.0 pO2 ___62.5__ -mmHg 69.0 116 HCO3- ___20.8__ -mmol/L 22.0 26.0 ABE ___-2.2__ -mmol/L -2.0 2.0 tHb ___10.9__ -g/dL O2Hb ___90.6__ -% COHb ____0.8__ -% MetHb ____1.1__ -% sO2 ___92.4__ -% FIO2 ___40.0__ -% PRVC 400 - PEEP ___13.0__ -cmH2O Set_RR ___18.0__ -b/min Drawn By LT - Date/Time Notified____ 05:22:00 -_ Spontaneous_RR ___23.0__ -b/min Notified Whom ___DR. PARSONS - B 762 -mmHg tO2 ___13.9__ -Vol% Adolph test _Positive -
--- NOTE | 2017-02-04 05:25 | NUR ---
Hemodynamics/Resp/GI Patients BP averaged 90/50's this shift, MAP low 60's, remains intubated and on ventilator, sedated on low dose Propofol and Fentanyl. FIO2 100%/PEEP13/400TV/18RR, over breathing vent at 22-23 RR, 500ml NS bolus x2 given, Diltiazem titrated off by 2330. dark brown/black fluid from OG, updated on patient condition, ordered labs to be drawn early and to hold 0030 5000units Heparin SQ, liquid dark stool and severe redness/peeling skin, MD ordered FMS and FMS placed, Calmoseptine applied generously over reddened von-areas, patient dialyzed, 190ml urine output this shift, no distress noted at this time, CXR done this AM. Addendum: 02/04/17 at 0557 by CURLY UREÑA RN Amended: Links added.
[2017-02-04 07:00] LABS: BASOPHILS % (AUTO) 0 % (0-3); EOSINOPHILS % (AUTO) 0 % (0-5); MONOCYTES % (AUTO) 1.5 % (4-12); Mean Corpuscular Hemoglobin 29.1 pg (27.0-35.0); Mean Corpuscular Volume 84.5 fL (81-100); NEUTROPHILS % (AUTO) 74.5 % (40-74); Platelet Count 102 bil/L (150-400)
[2017-02-04] MEDS: Albuterol-Ipratropium 3 mL Inhalation Solution NEB SCH ×3 (07:14→16:00)
[2017-02-04 07:36] LABS: Magnesium 1.8 mg/dL (1.6-2.6); Phosphorus 5.4 mg/dL (2.5-4.9)
[2017-02-04] MEDS ORDERED: Phenylephrine Inj 20,000 MCG in 0.9% Sodium Chloride 250 ML IV SCH (07:54)
[2017-02-04] MEDS: Famotidine Inj 20 MG in IV Premix 1 EACH IV SCH (07:54)
[2017-02-04] MEDS: Piperacillin-Tazo 3.375 Gm Inj 3.375 GM in Dextrose 5% Minibag Plus 50 ML IV SCH ×2 (07:54→20:44)
[2017-02-04] MEDS ORDERED: Albumin 25% 50 GM in IV Premix 1 EACH IV ONE ×2 (07:55→08:25)
--- NOTE | 2017-02-04 08:24 | PROG NOTE ---
[address] [address] PROGRESS NOTE PATIENT: Jacky ABDUL : 1930 MR#: [id number] ADMIT: 01/29/2017 JOB ID: [id number] DATE: 02/04/2017 REASON FOR FOLLOWUP: C. difficile colitis with progressive pneumonia and now with respiratory and renal failure. INTERVAL HISTORY: Recall this is a complex case of an 86-year-old woman with underlying diabetes who was admitted with some shortness of breath and cough now 1 week ago. She was initially thought to have community-acquired pneumonia and started on ceftriaxone and azithromycin. After approximately 2 days of that regimen it became apparent that the patient also had an explosive diarrhea which turned out to be C. difficile colitis. Respiratory viral PCR also showed that she had adenovirus in her nasopharynx and her ceftriaxone and azithromycin combination was stopped in favor of treatment aimed at the diarrhea. The patient's respiratory status as well as her renal status, however continued to worsen and she was quickly restarted on doxycycline which was then changed to a combination of tigecycline and Zosyn. Tigecycline was chosen because it does have efficacy community-acquired pneumonia and may have efficacy in refractory cases of C. diff. Over the past few days the patient has steadily declined in terms of respiratory function as well as renal function to the point where yesterday afternoon she required intubation as well as the institution of dialysis. This morning she is critically ill in the ICU. Retracted discussions were held with the ICU team as well as the ICU nurse at the bedside. Patient is currently intubated and sedated. She moves or grimaces to pain, but little else. She is not interactive or able to supply any additional history. PHYSICAL EXAMINATION: Vital signs this morning include temperature 38.1, but she has been during the night as high as 38 degrees. This represents a moderate curve over the past 2 days or so as she was previously spiking as high as 39 degrees on a frequent basis. This morning 38.1, pulse in the 80s, and is AFib. Blood pressure is currently about 90/50. She is not yet on vasopressor agents. She is saturating fairly well but on 100% and 13 of PEEP to maintain even 90% to 95% oxygen saturation. Her eyes are without notable abnormality. Right IJ central line benign appearing. Oral endotracheal tube and orogastric tube in good position. Lungs with rales diffusely more on the right than the left. Cardiac tones distant and irregular. Abdomen seems to have focal left-sided tenderness. Overall the abdomen is soft and rather doughy than the left lower quadrant with deep palpation. The patient clearly grimaces. The nurse tells me that during the night. FMS was installed and it was a great deal of excoriation and skin breakdown around the anus secondary to recent diarrhea. Charles catheter is also present with minimal urine output. Temporary dialysis catheter is also present. The patient does not have a rash and her extremities are reasonably well perfused. LABORATORIES: Include a white count today 3200, platelets 102, and stable. Creatinine was 5.26 at midnight. Repeat is pending. LFTs are drifting up. AST 181, ALT 46. Procalcitonin is 12.8. Yesterday was 11.4. Recall that when she came in a week ago her procalcitonin was basically zero. Hepatitis C negative. Urine pneumococcal legionella antigens negative. Blood cultures on admission negative. MRSA screen negative. Respiratory PCR positive for adenovirus. Stool PCR positive for C diff. Followup blood cultures also negative. Sputum gram stain was ordered during the night and is just now being evaluated. IMAGING: Overnight includes a chest x-ray yesterday afternoon which showed worsening right-sided infiltrate. CT scan done after intubation showed dense bilateral consolidation worse on the right than left. IMPRESSION: This remains a very troublesome case. The patient was admitted with [id number] respiratory symptoms and soon after admission developed diarrhea. The diagnoses of C. difficile colitis as well as adenoviral pneumonia were quickly established. Despite appropriate care the patient has dramatically deteriorated over the past 5 or so days. The addition of very broad-spectrum antibiotics including tigecycline and Zosyn have not arrested her decline, and she has gotten dramatically worse in the past 48 hours with the need for ICU care including intubation with high FiO2 and PEEP as well as dialysis. All of our standard diagnostic studies for pneumonia have proven negative except obviously the identification of adenovirus and the PCR. The struggle has been the last 2 or 3 days to identify whether her deterioration is due to C. diff which has not responded to standard therapies and/or whether she has a superimposed bacterial process somewhere (probably in her lungs), which is driving her deterioration. RECOMMENDATIONS: 1. If possible I would return to the CT scanner for a CT of the abdomen and pelvis as I remained concerned that we she could have intraabdominal or pelvic disaster driving her deterioration. 2. A sputum Gram stain and culture was requested during the night and it will be done soon. 3. I have added a crypto antigen to her labs though this entire course seems inconsistent with crypto. 4. I have also added hantavirus serology, though I think once again the rising procalcitonin and other data would argue against hantavirus as a diagnosis here. 5. If bronchoscopy could be performed, and I doubt that would possible with FiO2 100%, 13 of PEEP, it might be diagnostically useful. 6. Will continue to follow this patient with you.
--- NOTE | 2017-02-04 08:52 | DRSVH ---
PROCEDURE: X-RAY CHEST ONE VIEW, PORTABLE ([id number]) INDICATIONS: ICU pt; monitor tubes and lines TECHNIQUE: One view of the chest was acquired. COMPARISON: [facility], CT, CT ANGIO CHEST PE, 02/03/2017, 17:49. [facility] , CR, XR CHEST 1VW (PORTABLE), 02/03/2017, 14:25. FINDINGS: Surgical changes and devices: There is a right IJ central line with the tip in the area of central SV C. ETT tip projected 3.2 cm above the rhys. Lungs and pleura: Persistent dense right mid lung opacity persists. Small bilateral pleural effusions . No pneumothorax. There is left basilar consolidation and/or atelectasis similar to prior exam.. Mediastinum: Mediastinal contours appear normal. Heart size is normal. Bones and chest wall: No suspicious bony lesions. Overlying soft tissues appear unremarkable. IMPRESSION: 1. Lines and tubes as above. 2. Bilateral lung opacification similar to prior examination suspicious for multifocal pneumonia, alt karin mass cannot be excluded and continued radiographic followup to resolution is recommended. 3. Trace pleural effusions. Dictated by: Butch Santoyo [facility] Interpreted: Roxann Kline MD on 02/04/2017 at 8:50 Transcribed by: NEVA on 02/04/2017 at 8:52 Approved by: Roxann Kline M.D. on 02/05/2017 at 9:07
[2017-02-04] MEDS: Heparin 5,000 Unit/mL Inj SUBQ SCH ×2 (09:06→18:03)
[2017-02-04] MEDS: Sodium Acetate Inj 150 MEQ in Dextrose 5% 1,000 ML IV SCH (09:08)
[2017-02-04] MEDS: Phenylephrine Inj 20,000 MCG in 0.9% Sodium Chloride 248 ML IV SCH ×4 (09:40→23:07)
[2017-02-04] MEDS: Tigecycline Inj 50 MG in 0.9% Sodium Chloride 100 ML IV SCH ×2 (09:40→20:44)
--- NOTE | 2017-02-04 09:56 | PCM.PNMED ---
Subjective Date of Service February 04, 2017 Subjective PULMONOLOGY/CRITICAL CARE PROGRESS NOTE Patient intubated and sedated so no ROS obtained. Overnight, nursing noted MAP in the low 60s with BP 90/50s. Use of low dose fentanyl and propofol so as not to decrease BP further. Able to titrate down on diltiazem drip which was well tolerated overnight. Iliana-area skin noted to be erythematous and peeling - FMS ordered for protection of skin. Only 190 mL of urine output documented over shift. Exam Vital Signs Vital Sign - Last Date Time Temp Pulse Resp B/P Pulse Ox O2 Delivery O2 Flow Rate FiO2 02/04/17 07:16 99 103/63 94 100 02/04/17 03:53 38.1 23 Mechanical Ventilator 02/03/17 08:18 55 Intake and Output 02/03/17 02/03/17 02/04/17 Cumulative From/Thru 15:00 23:00 07:00 01/28/17 22:23 - 02/04/17 03:58 Intake Total 1773 ml 2325 ml 23908 ml Output Total 675 ml 220 ml 4945 ml Balance 1098 ml 2105 ml 23203 ml Intake Oral 80 ml 2560 ml IV Total 1773 ml 2245 ml 63738 ml Output Urine Total 190 ml 3540 ml Stool Total 20 ml 20 ml Urine/Stool Mix 700 ml Gastric Drainage Total 175 ml 10 ml 185 ml Ultrafiltrate 500 ml 500 ml # Voids 4 # Bowel Movements 1 0 20 Exam Gen: Obese elderly female intubated and sedated in the ICU HEENT: PERRLA, EOMI, sclerae anicteric Neck: Obese, no JVD appreciated, right IJ line in place Mouth: No oral thrush noted; ET and OG tubes in place CV: Irregular rhythm with tachycardic rate, no murmur appreciated Respiratory: Diminished breath sounds in all lung howe, right side coarse Abdomen: Obese, soft, nontender, and suction sound from OG tube Extr: Trace bilateral non-pitting edema to the mid-anterior leg below the knee; no cyanosis, no clubbing; lower extremities tender to palpation; left wrist and right forearm peripheral IVs; right femoral temporary dialysis catheter in place Radial pulse present and equal bilaterally, dorsalis pedis pulse difficult to appreciate bilaterally Charles catheter present, FMS tube present Generalized tremor noted when patient is awake IVs and Medications Medications Reviewed: Medications were reviewed in detail Lab and Diagnostics Result Diagram: 02/04/17 0645 02/04/1745 Assessment & Plan 1) Acute hypoxic respiratory failure. - Likely secondary to viral pneumonia. - Remains intubated with current vent settings FiO2 1.0, PEEP 13, set rate 18, tidal volume 400. Peak pressure 24 and plateau 23. Measured PEEP (auto-PEEP) 12. Actual rate 24. - ABG qAM and as needed for ventilator adjustment. O2 saturation goals 90-94%. - Fentanyl for analgesia and propofol for sedation. - Nebulizer treatments as needed. 2) Viral pneumonia with possible concurrent/secondary bacterial pneumonia. - Positive for adenovirus. No other positive viral or bacterial cultures from the respiratory tract. - Consolidation seen on CTA throughout the right lung. No PE. - Consider new sputum culture if able to obtain a good sample out of the ET tube. - May consider bronchoscopy in the near future for BAL. Uncertain if any high yield information would be obtained with this invasive testing. Patient may not tolerate on the current vent settings. - Dr. Damon of infectious disease has been consulted. Antimicrobials per his expertise. 3) C. diff colitis. - Concern for bacterial superinfection as patient has become progressively more ill over the course of admission despite treatment with appropriate antibiotics. - CT abd/pelvis with contrast ordered and pending. - Continue to monitor procalcitonin. - Continue antibiotics as per Dr. Damon. 4) Hypotension. - Probably secondary to use of propofol. Propofol appears to be the best agent for sedation in this patient. - Phenylephrine ordered and available to maintain MAP >65, SBP >90. - Fluid management per nephrology. 5) Acute kidney injury on chronic kidney disease. - Dr. Salmeron of nephrology has been consulted. - Repeat hemodialysis planned daily for the foreseeable future. - Fluid management per nephrology. 6) Respiratory alkalosis. - Recommend stopping bicarb drip this AM. - Vent settings changed in an effort to combat this, but despite the rate decrease the patient is overbreathing the vent. - Will attempt to sedate patient more adequately with the addition of phenylephrine to maintain BP. Will monitor closely to see if she follows the ventilator better. - Repeat ABG this afternoon. 7) Nutrition. - Labs indicate poor nutritional status with low total protein and albumin. - Supplement albumin one time in an effort to increase intravascular fluid volume. - Dietary consult for tube feeding. Consider starting trophic feeding today if CT ok. GI Prophylaxis: H2 kyra VTE Prophylaxis: Sub-Q Heparin (Unfractionated) VTE Mechanical Devices: Intermittant Pneumatic CD Resuscitation Status: CPR: Attempt Resuscitation Attending Statement The patient was seen and examined together with Dr. Lucas on 02/04/2017 and I have added additional information to the note above. Time spent in critical care: 60 min Holly Lucas DO February 04, 2017 09:20 Bijan Miller MD Mar 01, 2017 11:16
--- NOTE | 2017-02-04 10:19 | NUR ---
NUTRITION FOLLOW-UP: Assess: 86 YO F admitted for pneumonia. Pt with C.diff and LEENA requiring dialysis. She was intubated 02/03 due to respiratory failure. Nephrology is following and pt is to have dialysis again today and possibly a CT of abdomen and pelvis. Received verbal in morning rounds to start TF. PMHX: HTN, HLD, type 2 DM, hypothyroidism, recurrent PNA, PVD. DIET: NPO LABS: Cl 95, Bun 68, Delivery Lead 5.63, Glu 201, Ca 6.6, phos 5.4, AST 222, Alk phos 52, Alb 1.8 MEDICATIONS: Reviewed. Fentanyl, propofol currently running at 10ml/hr providing 264kcal/day GI: C.diff positive. FMS in place SKIN: No issues noted. ANTHROPOMETRICS: Wt 110.1 kg, BMI 44.4 kg/m2, Admit wt: 100.1 kg, Adj. BW: 62.5kg, IBW 50kg ESTIMATED NEEDS: vent/ BMI/ dialysis (based off admit wt) Calories: 2000-2200kcal/day (20-22kcal/kg) Protein: 75-100g/day (1.5-2.0g/kg IBW) Fluids: ~2500ml/day (25ml/kg) NUTRITION DIAGNOSIS: 1) Inadequate oral intake related to decreased ability to consume sufficient energy as evidenced by current NPO status. INTERVENTION: 1) Received verbal order to start TF. Recommend start TF of Nepro at 10ml/hr. If tolerated, advance by 10ml q 6 hrs until reach goal rate of 45ml/hr to provide 1782kcal (2046kcal with propofol) and 80g pro (100% estimated needs). 2) Monitor GI tolerance. If pt continues to have high output due to C.Diff, consider addition of one packet of Banatrol plus TID to help treat diarrhea/C.diff. 3) Adjust goal rate based on daily propofol. MONITOR/EVALUATE: NPO/vent, TF start, wt, labs, GI/nutrition status. Follow per high nutrition risk guidelines.
--- NOTE | 2017-02-04 10:46 | PCM.PNNEPH ---
Subjective Date of Service February 04, 2017 Subjective s/p temporary HD cath placement, 1st HD initiated for 2 hrs. AFib RVR persisted. Hypotension noted. CTA PE protocol no obvious PE identified. Exam Vital Signs Vital Sign - Last Date Time Temp Pulse Resp B/P Pulse Ox O2 Delivery O2 Flow Rate FiO2 02/04/17 07:16 99 103/63 94 100 02/04/17 03:53 38.1 23 Mechanical Ventilator 02/03/17 08:18 55 Intake and Output 02/03/17 02/03/17 02/04/17 Cumulative From/Thru 15:00 23:00 07:00 01/28/17 22:23 - 02/04/17 03:58 Intake Total 1773 ml 2325 ml 11279 ml Output Total 675 ml 220 ml 4945 ml Balance 1098 ml 2105 ml 05356 ml Intake Oral 80 ml 2560 ml IV Total 1773 ml 2245 ml 67655 ml Output Urine Total 190 ml 3540 ml Stool Total 20 ml 20 ml Urine/Stool Mix 700 ml Gastric Drainage Total 175 ml 10 ml 185 ml Ultrafiltrate 500 ml 500 ml # Voids 4 # Bowel Movements 1 0 20 Exam General appearance: Intubated on full vent support, sedated, eyes open spontaneously, responsive to painful stimuli. HEENT: ETTube, No pallor. No jaundice. No JVD. No lymphadenopathy. No thyroid enlargement. Right IJ tripple lumen in place. Heart: Irregular rhythm. Tachycardic. No murmurs, rubs, or gallops. Lungs: Fine crackles at the bases noted. No wheezing. No rhonchi. Abdomen: Soft, obese, mild distention. Hypoactive bowel sounds. Extremity: No significant edema on the lower extremities. No rash. No excoriation. No cyanosis. : Charles catheter in place with scant urine. Lab and Diagnostics Result Diagram: 02/04/17 0645 02/04/17 0645 Plan Impression 1. Acute kidney injury in the setting of ongoing sepsis secondary to ATN. 2. Acute hypoxemic respiratory failure secondary to multilobar PNA. 3. Viral pneumonia, adenovirus, with superimposed bacterial pneumonia. 4. Clostridium difficile colitis. 5. Hypotension: sepsis, sedation, diltiazem. 6. Mixed anion gap metabolic acidosis and non-anion gap metabolic acidosis. 7. Atrial fibrillation with rapid ventricular response. Plan: Continue daily HD, today we will run for 3 hr. UF 1-2L as tolerated. Next HD in am, 4hr. Renally dose meds. Avoid nephrotoxins. PO/IV abx per ID. Prognosis is guarded. DW primary team. Mir Davidson MD February 04, 2017 10:46
--- NOTE | 2017-02-04 11:28 | PCM.PNMED ---
Subjective Date of Service February 04, 2017 Subjective Ms. Brown is an 86-year-old female with history of non-insulin requiring type II diabetes, hypothyroid, and hypertension who presented to the ER for complaints of 2 days of high fever and cough. Today is hospital day 6. Overnight,diltiazem was discontinued due to patient's low blood pressure. The ventilator settings were changed by decreasing respiratory rate to 18. Today, she remains intubated and sedated on low dose fentanyl and propofol. Exam Vital Signs Vital Sign - Last Date Time Temp Pulse Resp B/P Pulse Ox O2 Delivery O2 Flow Rate FiO2 02/04/17 07:16 99 103/63 94 100 02/04/17 03:53 38.1 23 Mechanical Ventilator 02/03/17 08:18 55 Intake and Output 02/03/17 02/03/17 02/04/17 Cumulative From/Thru 15:00 23:00 07:00 01/28/17 22:23 - 02/04/17 03:58 Intake Total 1773 ml 2325 ml 15010 ml Output Total 675 ml 220 ml 4945 ml Balance 1098 ml 2105 ml 91114 ml Intake Oral 80 ml 2560 ml IV Total 1773 ml 2245 ml 33712 ml Output Urine Total 190 ml 3540 ml Stool Total 20 ml 20 ml Urine/Stool Mix 700 ml Gastric Drainage Total 175 ml 10 ml 185 ml Ultrafiltrate 500 ml 500 ml # Voids 4 # Bowel Movements 1 0 20 Exam Gen: Obese elderly female who is intubated and sedated. HEENT: EOMI, sclerae anicteric Neck: Soft, obese CV: Irregular rhythm with normal rate, soft II/ systolic murmur, no JVD noted Respiratory: Breath sounds bilaterally Abdomen: Obese, soft and hypoactive bowel sounds MSK: Trace bilateral non-pitting edema to the mid-anterior leg below the knee. Neuro: Grossly intact Skin: Warm, intact Psych: Pt is sedated. IVs and Medications Medications Reviewed: Medications were reviewed in detail Lab and Diagnostics Result Diagram: 02/04/1745 02/04/1745 X-Rays, CTs and MRIs PROCEDURE: CT ANGIO CHEST PULMONARY EMBOLISM IMPRESSION: 1. No main, left or right, or first order pulmonary artery branch emboli. Smaller pulmonary arteries are obscured by motion. 2. Dense bilateral consolidation most consistent with pneumonia. Mediastinal and hilar lymphadenopathy is most likely reactive. Right apical consolidation may demonstrate very early cavitation. Recommend clinical followup to resolution with further chest CT as needed to exclude any underlying malignancy. 3. Soft tissue stranding about a right IJ central venous catheter insertion site. This may represent postoperative change if the line was recently placed. Otherwise, infection or venous thrombus cannot be excluded. 4. ET and enteric tubes. Approved by: Luis Ramirez M.D. on 02/03/2017 at 18:28 Additional Diagnostics Arterial blood gas DateTimeAnalyzed 05:17:00 -_ pH ____7.441 - 7.350 7.450 pCO2 ___31.0__ -mmHg 35.0 45.0 pO2 ___62.5__ -mmHg 69.0 116 HCO3- ___20.8__ -mmol/L 22.0 26.0 ABE ___-2.2__ -mmol/L -2.0 2.0 tHb ___10.9__ -g/dL O2Hb ___90.6__ -% COHb ____0.8__ -% MetHb ____1.1__ -% sO2 ___92.4__ -% FIO2 ___40.0__ -% PRVC 400 - PEEP ___13.0__ -cmH2O Set_RR ___18.0__ -b/min Drawn By LT - Date/Time Notified____ 05:22:00 -_ Spontaneous_RR ___23.0__ -b/min Notified Whom ___DR. PARSONS - B 762 -mmHg tO2 ___13.9__ -Vol% Adolph test _Positive - Assessment & Plan Ms. Brown is an 86-year-old female with history of non-insulin requiring type II diabetes, hypothyroid, and hypertension who presented to the ER for complaints of 2 days of high fever and cough. Today is hospital day 6. acute, active problems: Acute hypoxic respiratory failure, present on admission, due to viral adenovirus pneumonia and likely secondary bacterial pneumonia. -Patient was requiring high flow nasal cannula with 80% FiO2 and continued to be in moderate respiratory distress. Pt is now sedated and intubated on fentanyl and propofol. -Echocardiogram as above, EF 65-70% -DuoNeb 4 times a day while awake, albuterol as needed -One dose of IV furosemide 40 mg given 02/01/17 and kidney function worsened -Started on tigecycline IV 02/01/17 and Zosyn IV 02/02/17 -Pulmonology consulted and following. Their time and recommendations are appreciated. -CTA chest performed as above -CXR and ABG in the morning -ABGs as needed Severe sepsis, acute, active. -Patient meets criteria with temperature 38.4 degrees C, HR 92 bpm, respiratory rate 32, with pneumonia and C. difficile infection. She also has hypotension and acute kidney injury. -She continues to be febrile -Continue tigecycline, Zosyn, Flagyl, and vancomycin -Continue to monitor -She is now on phenylephrine for blood pressure support Community-acquired pneumonia, likely viral pneumonia with a secondary bacterial pneumonia, present on admission, Presentation of cough, fever, lung infiltrate on x-ray is suspicious for pneumonia as above. Pt was also hypoxic with diffuse wheezing. Respiratory PCR+ adenovirus. -MRSA screen negative, S. pneumoniae and legionella screen negative, Blood cultures negative -Initially started on IV ceftriaxone and IV azithromycin on January 29 in the ED. discontinued 01/30, added doxycycline later given concern for atypical pneumonia , which was also discontinued -Started on tigecycline IV 02/01/17 and Zosyn IV 02/02/17 -Infectious disease consulted and following, their time and recommendations are appreciated Acute kidney injury, present on admission, Patient is unsure of any history of chronic kidney disease. Creatinine is 1.13 on admission, possibly prerenal with GI fluid loss or related to hypervolemic state currently. Probable acute tubular necrosis. Worsening. -Initial creatinine 1.13 on day of admission, 5.63 today -Renal US as above showed simple renal cyst on left -Continue to trend creatinine -Avoid renal toxin, renally adjust medications -One time dose of IV furosemide on 02/01/17 -Nephrology consulted and following. Their time and recommendations are appreciated. -Fluids per nephrology -Pt received hemodialysis yesterday and will again today Acute C. difficile colitis, Patient presented with 2 days of fever, diarrhea, URI symptoms. No history of recent antibiotic use. Has history of contact with family members with similar symptoms ( diarrhea and URI symptoms). C. difficile positive -Clinically stable, minimal abdominal symptoms, but diarrhea persistent and mildly improving. -Baseline KUB was not suggestive of toxic megacolon and repeat KUB showed normal bowel gas pattern but will continue to monitor for changes in symptoms. Consider CT scan if continued concern. -Started vancomycin by mouth 01/30, added Flagyl IV 500 q8h for additional coverage, tigecycline IV as above for pneumonia with additional coverage for C.difficile. -Monitor stools closely, replete electrolytes as needed -Nutrition consultation -CT abdomen and pelvis with contrast today Atrial fibrillation, acute, rate controlled -Noted on telemetry on 02/02/17 in the morning and confirmed with EKG -Given a dose of diltiazem and followed by diltiazem at 5 ml/hour -Diltiazem on hold for now. Will resume if rate increases -Continue to monitor Nutrition -Low albumin, 1.8 -Dietary following -Initiate tube feeding today if CT abdomen and pelvis is not concerning. -Albumin 50 g once Acute metabolic acidosis and respiratory alkalosis, acute, active. -Anion gap 26.5 with correction for albumin -ABG shows hypocapnia and hypoxia -Discontinued sodium bicarbonate chronic, stable problems Sinus Arrythmia, present on admission -Patient denied any previous cardiac history. -Admission EKG showed a sinus arrhythmia. -Patient not complaining of any chest pain, may be due to hypoxia -Place on telemetry for CV monitoring Thrombocytopenia with chronic normocytic anemia, present on admission -Platelets of 110 on admission. Patient's platelet was 106 in August, and was 145 in 2012. -Uncertain of etiology, but will need an outpatient workup. -Stable normocytic anemia with hgb of 11.6. -Continue to monitor and consider holding heparin Hypothyroidism -Resume levothyroxine 50mcg Hypertension, present on admission -Hold home lisinopril, given low blood pressure trends Mixed urinary incontinence, present on admission Type II diabetes, present on admission -Patient reports her primary care provider does not think she has diabetes and removed all of her diabetes medication -Hgb A1c 6.4% -Continue to monitor morning blood glucose Morbid obesity, present on admission, BMI of 40.4 Tylenol when necessary for fever/pain Ibuprofen when necessary for fever/pain GI Prophylaxis: H2 kyra VTE Prophylaxis: Sub-Q Heparin (Unfractionated) VTE Mechanical Devices: Intermittant Pneumatic CD Resuscitation Status: CPR: Attempt Resuscitation Attending Statement The patient was seen and examined together with Dr. Ferreira on 02/04/2017 and I agree with the history, exam and plan as outlined in the note above. . Mariely Ferreira DO February 04, 2017 11:28 Thaddeus Hardin MD February 05, 2017 07:33
--- NOTE | 2017-02-04 14:19 | NUR ---
Palliative Care Palliative Care received verbal order from Dr Ferreira 02/04/17 to assist with goals of care. Patient is an 86 year old woman who was admitted 01/29/17. Patient lives with her family on [address]. Eila (daughter) [phone], Constanza (daughter) [phone], Palliative Care Ruth Rosales
--- NOTE | 2017-02-04 15:33 | DRSVH ---
PROCEDURE: CT ABDOMEN AND PELVIS WITH CONTRAST ([id number]) INDICATIONS: LLQ pain TECHNIQUE: After the administration of intravenous contrast, 5 mm thick sections acquired from the diaphragm to the symphysis. 5 mm coronal and sagittal reformats were acquired. For radiation dose reduction, the following was used: automated exposure control, adjustment of mA and/or kV according to patient siz e. COMPARISON: None. FINDINGS: Image quality: Excellent. ABDOMEN: Lung bases: Bilateral pleural effusions with prominent superimposed consolidation particularly on the right. Solid organs: Liver and spleen are normal in size. There is an approximate 19 mm focus of enhancemen t within the medial right hepatic lobe, anterior to the inferior vena cava. No priors are available f or comparison. Gallbladder has been removed. Biliary system is non dilated. Pancreas enhances norm ally. No adrenal nodules. Kidneys demonstrate normal size and enhancement, without hydronephrosis. Renal cysts are unchanged. Peritoneum and bowel: Bowel loops are nonobstructed. There is a thickened appearance of the sigmoid colon with mild pericolonic stranding. Diverticula are present. Minimal dependent fluid is present wi thin the pelvis. Nodes and vessels: No retroperitoneal or mesenteric adenopathy by size criteria. Aorta and inferior vena cava are normal in size. Miscellaneous: No ventral hernias. PELVIS: Genitourinary: Bladder wall thickness is normal. Miscellaneous: Bilateral fat-containing inguinal hernias are present. Bones: No suspicious bony lesions. No vertebral body compression fractures. IMPRESSION: 1. Mild thickened appearance of the sigmoid colon with pericolonic stranding as described above. Dive rticula are present. Findings are suspicious for an early colitis, possibly secondary to diverticulit is. No free air or pericolonic abscess. 2. 19 mm focus of enhancement within the medial right hepatic lobe. No priors are available for leonel rison. This could represent a small hemangioma. However, other etiologies cannot be excluded. Further characterization with ultrasound may be obtained as clinically indicated. 3. Bilateral consolidative opacities most suggestive of pneumonia. Overall appearance has not signifi cantly changed. Dictated by: Roxann Kline M.D. on 02/04/2017 at 15:26 Approved by: Roxann Kline M.D. on 02/04/2017 at 15:31
[2017-02-04] MEDS ORDERED: Albuterol-Ipratropium 3 mL Inhalation Solution NEB PRN (16:46)
--- NOTE | 2017-02-04 17:45 | NUR ---
Dialysis note: 3 hours tx 1000 ml net UF Right femoral catheter, dsg dry and intact Pls see DTR for VS details, cont on phenylephrine drip Qb 300-350 Heparin prime given On vent @ 100% FiO2 w/ sat in the 90's Tolerated tx, cont on sedation, Propofol and Fentanyl drip Catheter flushed, heparin dwelled and secured Stable condition at end of tx Report given to Alexandra MALDONADO
--- NOTE | 2017-02-04 18:35 | NUR ---
Hemodynamics/Resp/GI Patients BP averaged 90/50's this shift, MAP 50s to 65. RASS -1 to +1, unable to titrate up on sedation 2/2 hypotension. Phenylephrine gtt initiated to support BP and allow to increase sedation to keep pt comfortable and tolerate CT of abd/pelvis this am. Phenylephrine at 1.3mcg/kg/min, based on ideal body weight of 50kg. Pt intermittently meeting MAP goal 65mmHg. Per Dr. Miller, if 2 hours post dialysis (aprox. 1930) pt is not meeting MAP goal, page night hospitalist and add vasopressin, do not continue to titrate up on valerie. Intermittently febrile this shift T-max 38.5; per Dr. Lucas, no APAP administered 2/2 declining liver function. Pt passively cooled, last temp was 37.0(ax.). Pt remains intubated and on ventilator, sedated on low dose Propofol and Fentanyl. FIO2 100%/PEEP13/500TV/15RR, over breathing vent at 22-23 RR. Small amt dark brown/red fluid from OG, does not appear raymond blood, MDs aware. FMS in place, small amt liquid stool in tubing, none in collection bag this shift. Calmoseptine applied over reddened von-areas. Patient dialyzed, see photograph tinter note. 40ml concentrated katelynn urine output this shift. No distress noted at this time. See labs for results of CT scan. TF per OGT initiated at 1530 at 10cc/h, with goal of 45cc/hr, per senior radiation protection technician.
--- NOTE | 2017-02-04 21:00 | NUR ---
Paged resident and spoke to Dr. Richard about starting vasopressin to assist with maintaining pt's MAP >65. Dr. Richard ordered 500 ml bolus NS x1 and if that doesn't work to give another for a total of 1000ml. Reminder was given to doctor that pt just received dialysis and 1 liter was taken off during dialysis. continued order of bolus's before giving order of vasopressin.
[2017-02-04] MEDS ORDERED: 0.9% Sodium Chloride 1,000 ML IV ONE (21:35)
[2017-02-04] MEDS ORDERED: 0.9% Sodium Chloride 500 ML IV PRN (21:55)
[2017-02-04] MEDS ORDERED: 0.9% Sodium Chloride 500 ML IV ONE (21:55)
--- NOTE | 2017-02-04 22:00 | NUR ---
Vasopressin order received and initiated with effectiveness BP 110/66.
[2017-02-04] MEDS: Vasopressin Inj 20 UNIT in 0.9% Sodium Chloride 100 ML IV SCH (23:20)
[2017-02-05] VITALS (16 sets, daily range): BP systolic 84–122; BP diastolic 38–70; PULSE 85–107; RESP 18–25; O2SAT 73–91
[2017-02-05] MEDS: Diltiazem Inj 125 MG in 0.9% Sodium Chloride 100 ML, Pharmacy To Mix 1 EA IV SCH (00:30)
--- NOTE | 2017-02-05 00:39 | ABG ---
DateTimeAnalyzed 00:33:00 -_ pH ____7.399 - 7.350 7.450 pCO2 ___36.5__ -mmHg 35.0 45.0 pO2 ___48.7__ -mmHg 69.0 116 HCO3- ___22.1__ -mmol/L 22.0 26.0 ABE ___-1.9__ -mmol/L -2.0 2.0 tHb ___10.0__ -g/dL O2Hb ___80.9__ -% COHb ____0.8__ -% MetHb ____1.3__ -% sO2 ___82.6__ -% FIO2 __100.0__ -% PRVC Y - PEEP ___13.0__ -cmH2O Set_RR ___15.0__ -b/min Vt __500.0__ -L Drawn By MK - Date/Time Notified____ 00:38:00 -_ Spontaneous_RR ___15.0__ -b/min Notified By MK - Notified Whom PIERRE DEW - B 761 -mmHg tO2 ___11.4__ -Vol% Adolph test N/A -
[2017-02-05] MEDS: Heparin 5,000 Unit/mL Inj SUBQ SCH ×3 (00:52→15:51)
[2017-02-05] MEDS: Chlorhexidine 0.12% 15 mL Oral Solution MT SCH ×6 (00:52→20:26)
[2017-02-05] MEDS: Propofol Inj 1,000,000 MCG in IV Premix 1 EACH IV SCH ×3 (00:53→17:16)
[2017-02-05] MEDS ORDERED: Cisatracurium 2,000 mCg/mL 10 mL Inj ONE (01:47)
--- NOTE | 2017-02-05 02:25 | NUR ---
Patient was continuing to desaturate to the 70s we tried good lung up then good lung down with no increase in saturation. We did a recoupment maneuver 30 peep for 30 sec and a 2 min rest. We repeated this process x4. Patients saturation is in the 90% no distress noted. MD was at bedside during this process.
[2017-02-05] MEDS: Vancomycin 100 mg/mL Oral Solution PO SCH ×4 (02:47→20:26)
[2017-02-05] MEDS: Cisatracurium Inj 200,000 MCG in 0.9% Sodium Chloride-Pha MIX 100 ML IV SCH ×3 (02:48→17:35)
[2017-02-05] MEDS ORDERED: Furosemide 10 mg/mL 4 mL Inj ONE (04:14)
[2017-02-05] MEDS: metroNIDAZOLE Inj 500 MG in IV Premix 1 EACH IV SCH ×3 (04:19→20:26)
[2017-02-05] MEDS ORDERED: Furosemide 10 mg/mL 4 mL Inj IVPUSH ONE (04:50)
--- NOTE | 2017-02-05 05:02 | NUR ---
recoupment maneuver 30 peep for 30 sec and a 2 min rest. We repeated this process x4. Patients saturation is in the 83% from 72%no distress noted. MD was at bedside during this process.
--- NOTE | 2017-02-05 05:08 | ABG ---
DateTimeAnalyzed 04:33:00 -_ pH ____7.333 - 7.350 7.450 pCO2 ___40.1__ -mmHg 35.0 45.0 pO2 ___50.7__ -mmHg 69.0 116 HCO3- ___20.7__ -mmol/L 22.0 26.0 ABE ___-4.3__ -mmol/L -2.0 2.0 tHb ___11.1__ -g/dL O2Hb ___79.7__ -% COHb ____0.7__ -% MetHb ____1.4__ -% sO2 ___81.4__ -% FIO2 __100.0__ -% PEEP ___15.0__ -cmH2O Set_RR ___25.0__ -b/min Vt __320.0__ -L Drawn By MK - Date/Time Notified____ 05:08:00 -_ Spontaneous_RR ___25.0__ -b/min Oxygen Device 1 VENTILATOR - Notified By MK - Notified Whom Dr Fuiamono - B 761 -mmHg tO2 ___12.4__ -Vol% Adolph test _Positive -
--- NOTE | 2017-02-05 05:21 | NUR ---
At approx. 0130 pt had a rapid decrease in resp. status. Sats decreased to low 80's. Doctors called and at bedside. pt with significant tremors, nimbex started. Vent setting changes made and are now 100/15/25/320. Recoupment maneuvers done by R/T and sats improved to 90%. After a short time pt's sats started to drop again. Doctors paged. Return call from Dr. Richard, discussed diuresis. Call was made to Dr. Miller and new orders received. Pt was given 80 mg lasix and vent settings adjusted to increase in PEEP to 17. With more recoupment maneuvers done and sats improved to 88% for a short time. Not much improvement and despite all efforts. Will cont. to closely monitor this pt.
[2017-02-05 06:11] LABS: BASOPHILS % (AUTO) 0.2 % (0-3); EOSINOPHILS % (AUTO) 0 % (0-5); MONOCYTES % (AUTO) 0.7 % (4-12); Mean Corpuscular Hemoglobin 29.8 pg (27.0-35.0); Mean Corpuscular Volume 87.4 fL (81-100); NEUTROPHILS % (AUTO) 76.8 % (40-74); Platelet Count 129 bil/L (150-400)
[2017-02-05 06:53] LABS: Phosphorus 5.8 mg/dL (2.5-4.9)
[2017-02-05 06:56] LABS: Magnesium 1.7 mg/dL (1.6-2.6)
[2017-02-05] MEDS: Famotidine Inj 20 MG in IV Premix 1 EACH IV SCH (07:54)
[2017-02-05] MEDS: Piperacillin-Tazo 3.375 Gm Inj 3.375 GM in Dextrose 5% Minibag Plus 50 ML IV SCH ×2 (07:54→20:26)
[2017-02-05] MEDS: Vasopressin Inj 20 UNIT in 0.9% Sodium Chloride 100 ML IV SCH ×2 (07:59→17:34)
--- NOTE | 2017-02-05 08:00 | PCM.PNMED ---
Subjective Date of Service February 05, 2017 Subjective PULMONOLOGY/CRITICAL CARE PROGRESS NOTE Patient intubated and sedated so no ROS obtained. Overnight, patient desaturated to the low 80s. Vent changes made to increase PEEP as FiO2 already at 1.0 and volume decreased to 6 cc/kg IBW. Nimbex infusion initiated. Recruitment maneuvers done by respiratory therapy with minimal improvement. Dose of IV lasix given for diuresis and PEEP increased a second time, still with minimal improvement. Exam Vital Signs Vital Sign - Last Date Time Temp Pulse Resp B/P Pulse Ox O2 Delivery O2 Flow Rate FiO2 02/05/17 07:37 101 110/60 86 100 02/05/17 04:30 Ventilator 02/05/17 04:30 38.8 25 02/03/17 08:18 55 Intake and Output 02/04/17 02/04/17 02/05/17 Cumulative From/Thru 15:00 23:00 07:00 01/28/17 22:23 - 02/05/17 05:35 Intake Total 2016 ml 3088 ml 09939 ml Output Total 1000 ml 60 ml 660 ml 6665 ml Balance -1000 ml 1956 ml 2428 ml 57518 ml Intake Oral 2560 ml IV Total 1904 ml 2757 ml 62560 ml Tube Feeding 32 ml 251 ml 283 ml Tube Irrigant 80 ml 80 ml 160 ml Output Urine Total 40 ml 60 ml 3640 ml Stool Total 600 ml 620 ml Urine/Stool Mix 700 ml Gastric Drainage Total 20 ml 205 ml Ultrafiltrate 1000 ml 1500 ml # Voids 4 # Bowel Movements 20 Exam Gen: Obese elderly female intubated, sedated and paralyzed in the ICU HEENT: PERRLA, sclerae anicteric Neck: Obese, no JVD appreciated, right IJ line in place Mouth: No oral thrush noted; ET and OG tubes in place CV: Irregular rhythm with tachycardic rate, no murmur appreciated Respiratory: Diminished breath sounds in all lung howe but relatively clear otherwise Abdomen: Obese, soft, nontender, slow bowel tones present Extr: Trace bilateral non-pitting edema in lower extremities; no cyanosis, no clubbing; left wrist and right forearm peripheral IVs; right femoral temporary dialysis catheter in place Radial pulse present and equal bilaterally, dorsalis pedis pulse difficult to appreciate bilaterally Charles catheter present, FMS tube present IVs and Medications Medications Reviewed: Medications were reviewed in detail Lab and Diagnostics Result Diagram: 02/05/17 0545 02/05/17 0545 Assessment & Plan 1) Acute hypoxic respiratory failure. - Likely secondary to viral pneumonia and possible healthcare associated pneumonia. - Remains intubated with current vent settings FiO2 1.0, PEEP 17, set rate 25, tidal volume 320. Peak pressure 32 and plateau 29. - Requiring ARDS-like vent settings with smaller volumes and increased PEEP/ FiO2 to attempt to improve oxygenation. - ABG qAM and as needed for ventilator adjustment. O2 saturation goals 88%. - Fentanyl for analgesia and propofol for sedation. Nimbex initiated for paralyzation. - Nebulizer treatments as needed. 2) Lobar pneumonia. - Positive for adenovirus. No other positive viral or bacterial cultures from the respiratory tract. Consolidation seen on CTA throughout the right lung. - May consider bronchoscopy in the near future for BAL if the patient can maintain O2 saturation closer to 90% on a more consistent basis. - If bronchoscopy feasible today will send samples for viral, fungal and bacterial studies. - Dr. Damon of infectious disease has been consulted. Antimicrobials per his expertise. 3) C. diff colitis. - Concern for bacterial superinfection as patient has become progressively more ill over the course of admission despite treatment with appropriate antibiotics. - Continue to monitor procalcitonin. - Continue antibiotics as per Dr. Damon. 4) Septic shock. - Use of propofol also contributing. Propofol appears to be the best agent for sedation in this patient. - Phenylephrine and vasopressin to maintain MAP >65, SBP >90. - Consider radial art line placement today. 5) Acute kidney injury on chronic kidney disease. - Dr. Salmeron of nephrology has been consulted. - Repeat hemodialysis planned daily for the foreseeable future. - Fluid management per nephrology. - Avoid nephrotoxic medications where possible. 6) Anion gap metabolic acidosis. - Likely secondary to infection and poor oxygenation of the peripheral tissues. - Could consider checking lactic acid level. - Continue ARDS-like vent settings in an effort to more adequately oxygenate the patient. - Continue to treat the underlying sepsis. 7) Acute liver injury. - Possibly secondary to poor perfusion of the liver. - Continue to follow LFT's. - If Tylenol needed for high fevers limit total daily dose to 2000 mg. 8) Nutrition. - Labs indicate poor nutritional status with low total protein and albumin. Could consider albumin supplementation as needed in an effort to improve intravascular volume. - Continue trophic tube feeding as tolerated by the patient. GI Prophylaxis: H2 kyra VTE Prophylaxis: Sub-Q Heparin (Unfractionated) VTE Mechanical Devices: Intermittant Pneumatic CD Resuscitation Status: CPR: Attempt Resuscitation Holly Lucas February 05, 2017 08:00 -Started on tigecycline IV 02/01/17 and Zosyn IV 02/02/17 -Infectious disease consulted and following, their time and recommendations are appreciated Acute kidney injury, present on admission, Patient is unsure of any history of chronic kidney disease. Creatinine is 1.13 on admission, possibly prerenal with GI fluid loss or related to hypervolemic state currently. Probable acute tubular necrosis. Worsening. -Initial creatinine 1.13 on day of admission, 5.63 today -Renal US as above showed simple renal cyst on left -Continue to trend creatinine -Avoid renal toxin, renally adjust medications -One time dose of IV furosemide on 02/01/17 -Nephrology consulted and following. Their time and recommendations are appreciated. -Fluids per nephrology -Pt received hemodialysis yesterday and will again today Acute C. difficile colitis, Patient presented with 2 days of fever, diarrhea, URI symptoms. No history of recent antibiotic use. Has history of contact with family members with similar symptoms ( diarrhea and URI symptoms). C. difficile positive -Clinically stable, minimal abdominal symptoms, but diarrhea persistent and mildly improving. -Baseline KUB was not suggestive of toxic megacolon and repeat KUB showed normal bowel gas pattern but will continue to monitor for changes in symptoms. Consider CT scan if continued concern. -Started vancomycin by mouth 01/30, added Flagyl IV 500 q8h for additional coverage, tigecycline IV as above for pneumonia with additional coverage for C.difficile. -Monitor stools closely, replete electrolytes as needed -Nutrition consultation -CT abdomen and pelvis with contrast today Atrial fibrillation, acute, rate controlled -Noted on telemetry on 02/02/17 in the morning and confirmed with EKG -Given a dose of diltiazem and followed by diltiazem at 5 ml/hour -Diltiazem on hold for now. Will resume if rate increases -Continue to monitor Nutrition -Low albumin, 1.8 -Dietary following -Initiate tube feeding today if CT abdomen and pelvis is not concerning. -Albumin 50 g once Acute metabolic acidosis and respiratory alkalosis, acute, active. -Anion gap 26.5 with correction for albumin -ABG shows hypocapnia and hypoxia -Discontinued sodium bicarbonate chronic, stable problems Sinus Arrythmia, present on admission -Patient denied any previous cardiac history. -Admission EKG showed a sinus arrhythmia. -Patient not complaining of any chest pain, may be due to hypoxia -Place on telemetry for CV monitoring Thrombocytopenia with chronic normocytic anemia, present on admission -Platelets of 110 on admission. Patient's platelet was 106 in August, and was 145 in 2012. -Uncertain of etiology, but will need an outpatient workup. -Stable normocytic anemia with hgb of 11.6. -Continue to monitor and consider holding heparin Hypothyroidism -Resume levothyroxine 50mcg Hypertension, present on admission -Hold home lisinopril, given low blood pressure trends Mixed urinary incontinence, present on admission Type II diabetes, present on admission -Patient reports her primary care provider does not think she has diabetes and removed all of her diabetes medication -Hgb A1c 6.4% -Continue to monitor morning blood glucose Morbid obesity, present on admission, BMI of 40.4 Tylenol when necessary for fever/pain Ibuprofen when necessary for fever/pain GI Prophylaxis: H2 kyra VTE Prophylaxis: Sub-Q Heparin (Unfractionated) VTE Mechanical Devices: Intermittant Pneumatic CD Resuscitation Status: CPR: Attempt Resuscitation Holly Lucas DO February 05, 2017 08:00
[2017-02-05] MEDS: Phenylephrine Inj 20,000 MCG in 0.9% Sodium Chloride 248 ML IV SCH ×5 (09:04→22:24)
[2017-02-05] MEDS: Tigecycline Inj 50 MG in 0.9% Sodium Chloride 100 ML IV SCH ×2 (09:04→20:26)
--- NOTE | 2017-02-05 09:28 | DRSVH ---
PROCEDURE: X-RAY CHEST ONE VIEW, PORTABLE ([id number]) INDICATIONS: DECREASED SATS, intubated TECHNIQUE: One view of the chest was acquired. COMPARISON: [facility], CR, XR CHEST 1VW (PORTABLE), 02/04/2017, 5:20. FINDINGS: Surgical changes and devices: Endotracheal tube and right-sided central venous catheter are unchanged . Enteric tube with tip below the gastroesophageal junction. Lungs and pleura: Dense consolidation in the right midlung appears grossly unchanged since yesterday. There are also multifocal patchy consolidative opacities in the left perihilar region, grossly uncha nged. No pneumothorax. No definite pleural effusion. There is persistent dense retrocardiac consolida tive opacity Mediastinum: Mediastinal contours appear normal. Heart size is normal. Bones and chest wall: No suspicious bony lesions. Overlying soft tissues appear unremarkable. IMPRESSION: Overall, grossly stable examination since 02/04/17 as above Dictated by: Isai Umana M.D. on 02/05/2017 at 9:23 Approved by: Isai Umana M.D. on 02/05/2017 at 9:26
--- NOTE | 2017-02-05 10:14 | NUR ---
NUTRITION FOLLOW-UP: Assess: 86 YO F admitted with viral pneumonia with possible healthcare associated pneumonia and acute hypoxic respiratory failure; now requiring ARDS protocol vent settings. She was intubated 02/03. Pt with C. diff colitis; now with concern for bacterial superinfection as patient has become progressively more ill over the course of admission despite treatment with appropriate antibiotics. Patient's renal failure has progressed to the point that she is requiring dialysis x 2, with a third dialysis planned. Her respiratory status is such that a bronchoscopy is unable to be performed at this time. Enteral feeding was on hold overnight due to initiation of Nimbex; however, enteral feeding is not contraindicated in conjunction with Nimbex. Orders received to restart enteral feeding at trophic rate. Code status: full. PMHX: HTN, HLD, type 2 DM, hypothyroidism, recurrent PNA, PVD. DIET: NPO ENTERAL FEEDING: Nepro rate 10 mL/hr trophic rate. Goal rate 45 mL/hr. LABS: BUN 51, Cr 4.41, Glu 180, Phos 5.8, AST 269, ALT 52, alb 2.2., Procalcitonin 9.63. MEDICATIONS: Reviewed. Fentanyl, Nimbex, Vasopressin, Phenylehrine, levothyroxine. Propofol rate currently 10mL/hr, providing 264kcal/day GI: C.diff positive, with decreasing diarrhea, [address] mL [address] FMS in [address]. SKIN: No issues noted. ANTHROPOMETRICS: Wt 110.1 kg, BMI 44.4 kg/m2, Admit wt: 100.1 kg, Adj. BW: 62.5kg, IBW 50kg ESTIMATED NEEDS: vent/ BMI/ dialysis (based off admit wt) Calories: 2000-2200kcal/day (20-22kcal/kg) Protein: 75-100g/day (1.5-2.0g/kg IBW) Fluids: ~2500ml/day (25ml/kg) NUTRITION DIAGNOSIS: 1) Inadequate oral intake related to decreased ability to consume sufficient energy as evidenced by current NPO status - PERSISTS. INTERVENTION: 1) Once enteral feeding tolerance established, recommend advanceReceived verbal order to start TF. Recommend start TF of Nepro at 10ml/hr. If tolerated, recommend advance by 10ml q 6 hrs to goal rate 45ml/hr, to provide 1782 kcal (2046 kcal with propofol) and 80g pro (100% estimated needs). 2) Monitor GI tolerance. If diarrhea increases, consider addition of one packet of Banatrol plus TID to help treat diarrhea/C.diff. 3) Adjust goal rate based on daily propofol if significantly changed. MONITOR/EVALUATE: NPO / vent status, enteral feeding restart / advance / tolerance, wt, labs, GI/nutrition status. Follow per high nutrition risk guidelines.
--- NOTE | 2017-02-05 10:33 | PROG NOTE ---
[address] [address] PROGRESS NOTE PATIENT: Jacky ABDUL : 1930 MR#: [id number] ADMIT: 01/29/2017 JOB ID: [id number] DATE: 02/05/2017 INFECTIOUS DISEASE FOLLOW UP NOTE: REASON FOR FOLLOWUP: Multiple organ failure and ventilator dependence in a patient with known adenoviral respiratory infection and C difficile colitis. INTERVAL HISTORY: Overnight, the patient has had additional deterioration. She is now requiring dual vasopressor agents with falling urine output. She remains on the ventilator at 100% FiO2 but her PEEP has been increased to 17 and she has been paralyzed to maintain oxygenation. We are still in need of a unifying diagnosis though we do know for certain that she has C. difficile as well as adenovirus. This case is discussed at the bedside with the ICU team as well as ICU nursing and respiratory therapy. PHYSICAL EXAMINATION: Reveals an intubated paralyzed woman lying supine in the ICU and receiving vasopressor agents. She has continued to be febrile as she has been throughout this now one week long hospital stay. During the night, she was as high as 39.3 degrees. Her blood pressure is currently 110/70, but that is requiring dual vasopressor agents and substantial doses. Pulse is currently approximately 100, and it is atrial fibrillation, irregular rate and rhythm. The patient is oxygenating very poorly on 100% and 17 of PEEP with O2 sats only in 80s. The eyes are notable for an absence of conjunctivitis. The oral endotracheal tube and orogastric tube are in good position. Right neck central line in good position. She also has an arterial line as well as Charles catheter and FMS. The lungs are notable for decreased breath sounds and rales, right greater than left side. Cardiac tones distant and irregular. Abdomen: Somewhat distended and very quiet with almost no bowel sounds. Charles catheter is present as mentioned and urine output has been falling off through the night. No skin rashes noted. The extremities are surprisingly not mottled nor cool. No rash is noted. LABORATORIES: Include white blood count 5400, platelet count 129. Creatinine 4.41. ALT and AST are pending. Yesterday's were quite elevated with AST 222 and ALT 52. Procalcitonin has fallen from yesterday's 12.8 to 9.6. Cryptococcal antigen and Hantavirus serologies are pending. Hepatitis serologies are negative. Urine Legionella negative x2. Urine pneumococcal antigen negative. All blood cultures are negative. MRSA screen negative. PCR of respiratory secretions positive for adenovirus. PCR stool positive for C. difficile. Sputum from yesterday from the endotracheal tube had no polys, moderate mixed bertha. IMAGING: Includes today's chest x-ray which shows bilateral opacification more significant on the right. The abdominal CT was done yesterday. It shows thickened appearance of the sigmoid colon with some pericolonic stranding. Could be consistent with diverticulitis or colitis. No free air is seen in the abdomen. A small enhancing lesion is seen in the right lobe of the liver and the extensive bilateral pulmonary infiltrates, more on the right, are again seen in the lower lung howe. Note that I reviewed the CT and chest x-ray on the screen myself and compared them to prior films. IMPRESSION: This is an extraordinarily difficult and vexing case. The patient came in with some respiratory symptoms initially and was quickly found to have adenoviral respiratory tract infection. Shortly after admission, she developed explosive diarrhea which was positive for C difficile. She has been treated aggressively for both community-acquired as well as nosocomial pneumonia as her chest x-rays have worsened and her respiratory status has declined. Additionally she has been on maximal medical therapy for C difficile and a variety of investigations listed above have been done to establish if there could be a third ongoing infection but as of yet we have not found one. Despite our best efforts, this patient has declined on a day-by-day basis during her now 7-1/2days in the hospital and she is clearly in the throes of multiorgan system failure and approaching the limits of our ability to ventilate her in the ICU. RECOMMENDATIONS: 1. Repeat sputum Gram stain and culture will be done today. 2. If the patient should improve enough that bronchoscopy becomes feasible, I think that would be reasonable as I remain concerned that there is as of yet an undiscovered second respiratory tract infection in play. 3. We will continue with our current antibiotic regimen which includes IV Flagyl plus oral vanco in maximal doses directed at C. difficile plus Zosyn as a nosocomial pneumonia agent plus tigecycline which is a dual purpose for treatment of C. difficile as well as treatment of either community-acquired pneumonia or as part and parcel of a plan to treat a nosocomial pneumonia. 4. As noted above, this case discussed extensively during ICU rounds and before rounds with the team.
[2017-02-05] MEDS ORDERED: Lidocaine Topical 2% 30 mL Jelly ONE (10:46)
[2017-02-05] MEDS ORDERED: Lidocaine PF 2% 10 mL Inj ONE (10:46)
[2017-02-05 11:10] LABS: Cryptococcal Ag Negative (Negative)
--- NOTE | 2017-02-05 11:30 | PCM.PNNEPH ---
Subjective Date of Service February 05, 2017 Subjective Her condition has deteriorated overnight. Hypoxemia has worsened despite being on 100% FiO2. She becomes anuric. She required vasopressors. Patient has received 2 treatments of hemodialysis. Exam Vital Signs Vital Sign - Last Date Time Temp Pulse Resp B/P Pulse Ox O2 Delivery O2 Flow Rate FiO2 02/05/17 09:52 88 02/05/17 07:46 Ventilator 02/05/17 07:46 38.7 104 25 113/60 100 02/03/17 08:18 55 Intake and Output 02/04/17 02/04/17 02/05/17 Cumulative From/Thru 15:00 23:00 07:00 01/28/17 22:23 - 02/05/17 05:35 Intake Total 2016 ml 3088 ml 12615 ml Output Total 1000 ml 60 ml 660 ml 6665 ml Balance -1000 ml 1956 ml 2428 ml 39976 ml Intake Oral 2560 ml IV Total 1904 ml 2757 ml 97613 ml Tube Feeding 32 ml 251 ml 283 ml Tube Irrigant 80 ml 80 ml 160 ml Output Urine Total 40 ml 60 ml 3640 ml Stool Total 600 ml 620 ml Urine/Stool Mix 700 ml Gastric Drainage Total 20 ml 205 ml Ultrafiltrate 1000 ml 1500 ml # Voids 4 # Bowel Movements 20 Exam General appearance: Intubated on full vent support, sedated. HEENT: ETTube, No pallor. No jaundice. No JVD. No lymphadenopathy. No thyroid enlargement. Right IJ tripple lumen in place. Heart: Irregular rhythm. Tachycardic. Lungs: Fine crackles at the bases noted. No wheezing. No rhonchi. Abdomen: Soft, obese, mild distention. Hypoactive bowel sounds. Extremity: No significant edema on the lower extremities. No rash. No excoriation. No cyanosis. : Charles catheter in place with scant urine. Lab and Diagnostics Result Diagram: 02/05/1745 02/05/1745 Plan Impression 1. Acute kidney injury in the setting of ongoing sepsis secondary to oliguric ATN. 2. Acute hypoxemic respiratory failure secondary to multilobar PNA. 3. Viral pneumonia, adenovirus, with superimposed bacterial pneumonia. 4. Clostridium difficile colitis. 5. Hypotension. 6. Mixed anion gap metabolic acidosis and non-anion gap metabolic acidosis. 7. Atrial fibrillation with rapid ventricular response. Plan: Continue supportive treatment and daily dialysis for now. Renally dose meds. Avoid nephrotoxins. PO/IV abx per ID. Prognosis is poor. Pending family meeting [facility] ICU team. Mir Davidson MD February 05, 2017 11:29
--- NOTE | 2017-02-05 12:33 | PCM.PROC ---
Procedure Note Date of Service: February 05, 2017 Pre Procedure Diagnosis: Septic shock Post Procedure Diagnosis: Septic shock Procedure: Ultrasound guided right arterial line placement Provider and Gold Stamper: MD Holly Francis DO Indication for Procedure: Septic shock with hypotension, hypoxic respiratory failure requiring repeated ABG and close blood pressure monitoring Procedural Analgesia: Fentanyl continuous infusion, propofol continuous infusion Procedure Details: The procedure was discussed with the patient's daughter, Debbie. Risks and benefits were reviewed as well as the indications for the procedure. Consent was obtained from the daughter as the patient is intubated and sedated. Ultrasound was used to visualize the right radial artery. The patient was then prepped and draped in the sterile fashion. The ultrasound was also prepped and draped in the sterile fashion. The ultrasound was once again used to visualize the right radial artery. A 20 gauge arterial line kit was utilized to gain access to the right radial artery under guidance. The guidewire was threaded with ease into the artery, the catheter placed over the artery, and then the needle and guidewire removed. Adequate flow of blood was seen. The IV therapy nurse, Joaquina, was present to dress the arterial line. The patient's nurse, Kathleen , was available to ensure viability of the line. Specimen: None Post Procedure Plan: Use for ABG each AM and as needed for ventilator adjustments Use for CVP and blood pressure monitoring Attending Statement Procedure: Right radial arterial catheter placement under ultrasound guidance Indication: Hypotension, septic shock Date of service: 02/05/17 I was present for and supervised the entire procedure Olga Summers M.D. Pulmonary and Critical Care medicine Pager [phone] Holly Lucas DO February 05, 2017 12:33 Olga Summers MD February 05, 2017 14:01
[2017-02-05] MEDS: fentaNYL 2,500 mCg/250 mL 2,500 MCG in IV Premix 1 EACH IV PRN (12:34)
[2017-02-05 12:38] LABS: BFWBC 155 /mm3
[2017-02-05 12:39] LABS: MONOCYTES,BODY FLUID 30 %
[2017-02-05 12:41] LABS: OTHER CELLS,BODY FLUID 10
--- NOTE | 2017-02-05 13:28 | PCM.CONPAL ---
Date of Service February 05, 2017 Date of Hospital Admission: January 29, 2017 at 00:23 Date of Palliative Consult: February 05, 2017 Requesting Provider: Thaddeus Hardin MD Reason Palliative Care Consult: Goals of Care Discussion Reason for Consultation The Palliative care team was asked to consult on Elizabeth by Dr. Wilfred M.D ,and Dr. Hanna D.O regarding patients goals of care. Hospital Unit @time of consult: Critical Care Additional Information Currently with ARDS and hypoxia on ventilator with 100% FIO2, multiorgan dysfunction/failure secondary hypovolemia from severe sepsis due to CAP and C.difficile colitis, and on two pressors and 3 antimicrobial medications. Palliative Care Recommendation Summary of palliative recommendations: -Symptom management (Pain/other) Per attending and steam table associate content management consultant. Patient prior baseline function: Per patient's daughter Debbie, the patient was quite functional on her own up to at least 2 weeks prior to her hospitalization. This included her ability to drive her own vehicle a regular basis. She was able to do her own shopping and cooking. Would place calls to her sister and talk on the phone. She was able to be active with her children and great-grandchildren on a daily basis. This includes trips to the mall and shopping. Patient currently lives in her own two-story home on the second floor with her great-grandsons on the first floor. She reportedly was able to even take care of her great-grandsons driving them to school and picking them up after school on a daily basis if need be. Of note patient has history of recurrent pneumonias. Reportedly the last time she was hospitalized was in 2011 with severe pneumonia and was in the critical care unit. At that time patient was not having difficulties with mentation or communicating desires and had chosen DNR/DNI status. Patient was placed initially as full code on this admission. Family Conference with Palliative: Today the family, along with Dr. Melina Mendoza, Pulmonology and Dr. Chris Mendoza,of the palliative care team, as well as this physician met for a family meeting to discuss patients goals of care given her multiorgan dysfunction and failure ( Respiratory, Kidney, liver, and GI). The family is aware and is understanding of the patients poor prognosis. They are aware and are agreeable that medical management is now limited to comfort care given that Elizabeth's body is unable to fight off the infection. During the the meeting the family made clear they want her comfortable at all times, and then they were reassured that their mother would be kept comfortable through the dying process. They were agreeable to change of code status to DNR/DNI and withdrawal of all but medications for comfort care. They requested that the patient not be extubated until arrangements could be made to notify Elizabeth's grandson. The plan is for this to occur tomorrow morning. In the meantime, there will be no escalation of care, if she deteriorates clinically (just comfort support), and her code status was officially changed from FULL code to DNR/DNI in the EMR. They also agreed that dialysis is no longer appropriate intervention at this time, as it would not change her outcome, per counseling by Dr. Summers. -DPOA/Advanced Directives/POLST Debbie DEVINE patients daughter -Family/emotional support Debbie\Mateo daughters Nany (friend of family) Maria Esther (friend of family) Family Goals: 1. Patient family wants to be told the truth about Elizabeth's illness, even if it is unpleasant. 2. Patient family would like to be told prognosis when it can be predicted, to better guide treatment decisions. Patients family is aware of prognosis and that it is poor given multiorgan failure. 3. Patient and patients family would choose quality of life over quantity of life, and defines quality as [returning to her baseline daily activities]. 4. Patient would request that comfort care take priority over cognitive/mental confusion. Problems: End of Life Preferences The family have expressed their desire to wait for extubation until appropriate family can be notified. They have expressed their desire for Elizabeth to be kept comfortable during the dying process. Family desires to remain with Elizabeth for emotional and spiritual support as Elizabeth transitions. The family has expressed desire to withdraw ventilator therapy likely in the morning when family can be present. Goals of Care The goals of care per family meeting are to maintain the vent overnight with likely extubation in the morning once the appropriate family members can be notified of the decision to withdraw life prolonging therapy. Patient to be made DNR/DNI at request of family and NILSON Lewis (daughter). Disposition Currently on ventilator and sedated with propofol and fentanyl. FIO2 of 100%, PEEP of 17, RR 25 and Vt of 320. Resuscitation Status Resuscitation Status: DNR/DNI:Do Not Resuscitate/Intubate Pt History History of Present Illness This is an 86 Y/O F with history of non-insulin requiring type II diabetes, hypothyroid, and hypertension who presented to the ER for complaints of 2 days of high fever and had fever of 102.7, cough, and diarrhea for 5 days after having been in contact with her grandchildren who had similar symptoms of diarrhea. Daughter reports that associated symptoms include shortness of breath , generalized myalgias, and sore throat. Daughter has noted that patient has had some confusion also. She has had a mild headache and lightheadedness, but denies any chest pain, abdominal pain, diarrhea, or rash. She at baseline has mixed urinary incontinence, but denies any dysuria. She reports her cough has been mildly productive. She has had decreased appetite and PO intake. Current PCP is Nikita. In the ER, patient was noted to be febrile with a temperature of 39.3, pulse of 84, respiratory rate of 20 and a blood pressure 151/73. She was noted to saturate around 92% on room air, but does desat to 88% with exertion. Patient had chest x-ray that showed right upper lobe pneumonia, and was found to be in A -fib with RVR. Patient was started on IV azithromycin and IV ceftriaxone for presumed CAP. Serial chest x-rays revealed an evolving and worsening right middle lobe and left lower lobe consolidation over the last 7 days of hospitalization. Infectious disease specialist Dr. Damon was consulted on this patient and patient was started on antibiotics tigecycline, and Zosyn for her CAP, as well as Flagyl initially and then vancomycin for her C. difficile colitis. Patient tested (+) for Adenovirus. Patient has had procalcitonin that has continued to trend up over her course of hospitalization and peaked at 12.8 yesterday despite multiple antimicrobial therapies. Patient's hypoxia despite high flow O2, and respiratory condition continued to worsen and pulmonology was also consulted at which time patient was placed on ventilator and is now on 100% FiO2 with PEEP of 17 and respiratory rate of 25 and total volume of 320. Patient also had an elevated creatinine on admission of 1.13, and Nephrology was consulted on her acute kidney injury secondary to severe sepsis. Her creatinine continued to rise over the course of her hospitalization and peaked at 5.63, despite pressor and fluid therapy. Patient has been receiving temporary hemodialysis over the past 2 days and has had almost no urine production. Her liver enzymes have been elevated and have been trending up. Patient has had abdominal pelvic CT which is suggestive of developing colitis in the context of diverticulosis. Past Medical History Significant PMH Noted: Essential hypertension, diabetes type II [id number], hypothyroidism, hyperlipidemia, benign neoplasm of the colon, sinus arrhythmia, history of recurrent pneumonias. Social History Family Members Issues: Patient's oldest daughter Debbie DEVINE with history of recent open heart surgery, and cancer. Present for family meeting. Patient's second daughter Mateo, was present for family meeting. Patient has a son who is estranged to her and has not been in contact for several years. Friend of family Nany, who was present for family meeting. Friend of family Maria Esther, who was not present for family meeting but was attending patient in patient's room at time of family meeting. Patient has a grandson who she is very close to however is currently in fpc in [facility]. Patient has 2 younger great-grandchildren who she cares for on a regular basis. Patient has sister with moderate degree of dementia. Social Support: Patient's two daughters as well as friends. Living Situation: Patient lives at home in a two-story house. Patient lives on the second level and her 2 great-grandsons and their mother live on the first level. Patient's daughters report that the patient often cares for the great-grandsons. Palliative Performance Scale PPS Patient Status: Baseline PPS Ambulation: Full PPS Activity: Normal activity & work PPS Self-Care: Full Self Care PPS Intake: Normal PPS Conscious Level: Full Performance Scale: 80% ADLs ADL Patient Status: Baseline ADL Ambulation: Full ADL Dressing: Full ADL Feeding: Full ADL Hygene/bathing: Full ADL Transfers: Full POLST at Time of Admission Previous POLST?: No Medications Current Medications: Current Medications Vancomycin HCl 500 mg 500 mg Q6 PO Last administered on 02/04/17 15:14; Admin Dose 500 MG; Start 02/03/17 at 14:30; Stop 02/04/17 at 20:07; Status DC Famotidine/Sodium Chloride 20 mg/ Premix 50 ml @ 100 mls/hr DAILY IV Last administered on 02/05/17 07:54; Admin Dose 100 MLS/HR; Start 02/03/17 at 16:13 Propofol 2700000 mcg/Premix 100 ml @ 3.07 mls/hr Q24H IV Last administered on 07:58; Admin Dose 3.07 MLS/HR; Start 02/04/17 at 03:40 Phenylephrine HCl 65197 mcg/Sodium Chloride 252 ml @ 41.61 mls/ hr Q6H4M IV; Start 02/04/17 at 07:54; Status UNV Phenylephrine HCl/ Sodium Chloride 250 ml @ 16.51 mls/ hr Q15H9M IV Last administered on 02/05/17 09:04; Admin Dose 16.51 MLS/HR; Start 02/04/17 at 08: 25 Albuterol/ Ipratropium 3 ml Q4 PRN NEB; Start 02/04/17 at 16:46 Vancomycin HCl 500 mg 500 mg Q6 PO Last administered on 02/05/17 07:52; Admin Dose 500 MG; Start 02/04/17 at 20:30 Sodium Chloride 500 ml @ 1,000 mls/hr Q30M PRN IV; Start 02/04/17 at 21:55 Vasopressin 20 unit/Sodium Chloride 101 ml @ 9.09 mls/hr Q11H7M IV Last administered on 02/05/17 07:59; Admin Dose 9.09 MLS/HR; Start 02/04/17 at 23:02 Cisatracurium Besylate/Sodium Chloride 200 ml @ 19.81 mls/ hr Q10H6M IV Last administered on 02/05/17 02:48; Admin Dose 19.81 MLS/HR; Start 02/05/17 at 01: 46 Scheduled Levothyroxine (Levothyroxine) 50 Mcg Tablet 50 MCG PO DAILY Lisinopril (Lisinopril) 5 Mg Tablet 5 MG PO DAILY Objective Findings Exam Vital Sign - Last Date Time Temp Pulse Resp B/P Pulse Ox O2 Delivery O2 Flow Rate FiO2 02/05/17 12:36 104 107/54 90 100 02/05/17 11:21 Ventilator 02/05/17 11:18 38.5 25 02/03/17 08:18 55 Intake and Output 02/04/17 02/04/17 02/05/17 Cumulative From/Thru 15:00 23:00 07:00 01/28/17 22:23 - 02/05/17 05:35 Intake Total 2016 ml 3088 ml 14472 ml Output Total 1000 ml 60 ml 660 ml 6665 ml Balance -1000 ml 1956 ml 2428 ml 92924 ml Intake Oral 2560 ml IV Total 1904 ml 2757 ml 81916 ml Tube Feeding 32 ml 251 ml 283 ml Tube Irrigant 80 ml 80 ml 160 ml Output Urine Total 40 ml 60 ml 3640 ml Stool Total 600 ml 620 ml Urine/Stool Mix 700 ml Gastric Drainage Total 20 ml 205 ml Ultrafiltrate 1000 ml 1500 ml # Voids 4 # Bowel Movements 20 Objective deferred Lab/Diagnostics Lab and Imaging results reviewed in detail in EMR. Patient/Family Conference Discussion/Goals of Care Please see plan above. Time spent Total time 70 minutes; >50% face to face with patient and/or family, providing counselling regarding plans and recommendations, and in care coordination with his/her medical teams. I also spent an additional 60 minutes counseling for advanced care planning with the patient/the patients family/the surrogate decision maker. Attending Statement Dr. Perez was present and physically available for all parts of this patient encounter with the resident physician. I agree with the progress note and approve of management plan as described above. Abhi Franco DO February 05, 2017 13:28 Ledy Perez MD February 05, 2017 15:21
--- NOTE | 2017-02-05 14:34 | PROG NOTE ---
[address] [address] PROGRESS NOTE PATIENT: Jacky ABDUL : 1930 MR#: [id number] ADMIT: 01/29/2017 JOB ID: [id number] DATE: 02/05/2017 PULMONARY CRITICAL CARE PROGRESS NOTE: The patient is an 86-year-old woman admitted to the hospital on January 29 with fever, subsequently diagnosed with Clostridium difficile colitis and right upper lobe pneumonia, now with respiratory failure and multiorgan failure. The patient was seen and evaluated with resident physician, Holly Lucas DO. Please refer to her separate detailed note for additional information. The following is a brief attending note. INTERVAL HISTORY: Overnight, her oxygenation continued to worsen. She is on 100% oxygen and 20 cm of PEEP this morning with saturations in the low 80s. She is also on two vasopressors. She remains on hemodialysis. REVIEW OF SYSTEMS: Unable to obtain since patient is intubated. PHYSICAL EXAMINATION: Vital signs reviewed. Notable for T-max of 38.8 this morning. FiO2 of 100%, PEEP 20 cm, sats 83%. General: Intubated, sedated, and paralyzed. Unresponsive. Chest: Poor breath sounds. LABORATORIES: Reviewed. Notable for platelets of 129, WBC 5.4. Chemistry reviewed. Creatinine is 4.4, on hemodialysis. Procalcitonin is down to 9.6 from 12.8 yesterday. Chest x-ray reviewed and shows dense right upper lobe consolidation with bibasilar consolidation. Arterial blood gas from this morning shows pH of 7.33, pCO2 of 40, pO2 of 50, bicarb of 20. ASSESSMENT AND RECOMMENDATIONS: 1. Acute hypoxic respiratory failure. 2. Acute respiratory distress syndrome. 3. Septic shock. 4. Clostridium difficile colitis. 5. Acute renal failure, on hemodialysis. 6. Type 2 diabetes. The patient is an 86-year-old woman presenting to the hospital with right upper lobe pneumonia and Clostridium difficile colitis, rapidly progressing to multiorgan failure. She is severely hypoxic, although frankly based on imaging criteria, she does not strictly meet acute respiratory distress syndrome criteria because her infiltrates are so focal. In keeping with this, it does not appear that high PEEPs are helping her at all. In fact, after decreasing her PEEP this morning from 20 to 17, her oxygenation actually improved with saturations coming up from 81% to now 90%. I am worried about this consolidation which is not really responding to antibiotics, and cultures have been negative so far. There is a possibility that we are dealing with an atypical organism or fungal organism, although unlikely. There is also a possibility that we are dealing with a mass causing postobstructive pneumonia. I spoke to the patient's family - her two daughters primarily and obtain consent to do a bronchoscopy. While this would be risking someone on 100% oxygen, I do think it would help manage the patient better if we could rule out postobstructive pneumonia and evaluate for fungal organisms. She is on norepinephrine and vasopressin both. She is completely dialysis dependent and last had dialysis yesterday. Fluid was taken off with dialysis, but she became hypotensive subsequently and had to be given intravenous fluids to compensate. Today, she is going to get dialysis again, but this time will only try to take 500 cc off per conversation with Dr. Salmeron. She is currently on sedation with propofol and fentanyl and paralyzed with cisatracurium. This is mostly to maintain her oxygenation. There is not much else we can add from respiratory or hemodynamic standpoint, and I explained this to both her daughters - one of them on the phone and the other one [id number]. The family is all gathering today to speak further about this and goals of care. Palliative Care is also involved. I think it would be most appropriate to change the patient's code status to Do Not Resuscitate, but at this point she is FULL CODE. I will speak to the patient's daughter regarding this. Addendum: Had a family conference with the patient's 2 daughters and palliative care present. Family indicated she would not want her life prolonged without reasonable chance of recovery. CODE STATUS was changed to DO NOT RESUSCITATE with the intention to transition to comfort measures the next morning. I did explain to the patient's family that she is currently on maximal ventilator support and declining despite that so she may not survive until the next morning. Throughout the afternoon her saturations would even dip as low as in the 70s. Dialysis was held per family wishes CRITICAL CARE TIME: 90 minutes. [facility] SYSTEMAna Laura
--- NOTE | 2017-02-05 14:41 | NUR ---
Low O sat/ family conference Oxygen saturation ranged between 82-87%. Bronchoscope [place] late [place] [address] % on 100% FIO2 during the procedure but gradually returned to morning base line of 87% for about 30 I min following this procedure. Oxygen saturation gradually decreased to 78-82% - MD aware- patient remained on 100% FIO2 with high PEEP see RT documentation for details. Family conference took placed today regarding patients plan of care- patient to remained DNR status with the same treatment but no interventions if she was too declined. Patient to be transferred to comfort care in am if patient lives through the night per family /DPOA lilly with primary MD and Palliative Care MD in agreement with this decision. Dialysis treatment ordered for today was canceled and discontinued as part of the plan- continue assessment.
--- NOTE | 2017-02-05 14:51 | NUR ---
Adenovirus Bronchial wash positive for adenovirus per microbiology report- Dr. Summers and Nelson were made aware about this finding- no new orders were received at this time.
--- NOTE | 2017-02-05 18:32 | PCM.PNMED ---
Subjective Date of Service February 05, 2017 Subjective Ms. Brown is an 86-year-old female with history of non-insulin requiring type II diabetes, hypothyroid, and hypertension who presented to the ER for complaints of 2 days of high fever and cough. Today is hospital day 7. She remains intubated and sedated. Exam Vital Signs Vital Sign - Last Date Time Temp Pulse Resp B/P Pulse Ox O2 Delivery O2 Flow Rate FiO2 02/05/17 05:00 103 110/70 83 02/05/17 04:30 Ventilator 02/05/17 04:30 38.8 25 100 02/03/17 08:18 55 Intake and Output 02/04/17 02/04/17 02/05/17 Cumulative From/Thru 15:00 23:00 07:00 01/28/17 22:23 - 02/05/17 05:35 Intake Total 2016 ml 3088 ml 46113 ml Output Total 1000 ml 60 ml 660 ml 6665 ml Balance -1000 ml 1956 ml 2428 ml 00783 ml Intake Oral 2560 ml IV Total 1904 ml 2757 ml 62639 ml Tube Feeding 32 ml 251 ml 283 ml Tube Irrigant 80 ml 80 ml 160 ml Output Urine Total 40 ml 60 ml 3640 ml Stool Total 600 ml 620 ml Urine/Stool Mix 700 ml Gastric Drainage Total 20 ml 205 ml Ultrafiltrate 1000 ml 1500 ml # Voids 4 # Bowel Movements 20 Exam Gen: Obese elderly female who is intubated and sedated. HEENT: EOMI, sclerae anicteric Neck: Soft, obese CV: Irregular rhythm and tachycardic, soft II/ systolic murmur Respiratory: Breath sounds bilaterally Abdomen: Obese, soft and hypoactive bowel sounds MSK: Diffuse bilateral upper and lower extremities Neuro: Grossly intact Skin: Warm, intact Psych: Pt is sedated. IVs and Medications Medications Reviewed: Medications were reviewed in detail Lab and Diagnostics Result Diagram: 02/05/17 0545 02/04/17 0645 X-Rays, CTs and MRIs PROCEDURE: CT ANGIO CHEST PULMONARY EMBOLISM IMPRESSION: 1. No main, left or right, or first order pulmonary artery branch emboli. Smaller pulmonary arteries are obscured by motion. 2. Dense bilateral consolidation most consistent with pneumonia. Mediastinal and hilar lymphadenopathy is most likely reactive. Right apical consolidation may demonstrate very early cavitation. Recommend clinical followup to resolution with further chest CT as needed to exclude any underlying malignancy. 3. Soft tissue stranding about a right IJ central venous catheter insertion site. This may represent postoperative change if the line was recently placed. Otherwise, infection or venous thrombus cannot be excluded. 4. ET and enteric tubes. Approved by: Luis Ramirez M.D. on 02/03/2017 at 18:28 PROCEDURE: CT ABDOMEN AND PELVIS WITH CONTRAST IMPRESSION: 1. Mild thickened appearance of the sigmoid colon with pericolonic stranding as described above. Diverticula are present. Findings are suspicious for an early colitis, possibly secondary to diverticulitis. No free air or pericolonic abscess. 2. 19 mm focus of enhancement within the medial right hepatic lobe. No priors are available for comparison. This could represent a small hemangioma. However, other etiologies cannot be excluded. Further characterization with ultrasound may be obtained as clinically indicated. 3. Bilateral consolidative opacities most suggestive of pneumonia. Overall appearance has not significantly changed. Approved by: Roxann Kline M.D. on 02/04/2017 at 15:31 Additional Diagnostics Arterial blood gas DateTimeAnalyzed 05:17:00 -_ pH ____7.441 - 7.350 7.450 pCO2 ___31.0__ -mmHg 35.0 45.0 pO2 ___62.5__ -mmHg 69.0 116 HCO3- ___20.8__ -mmol/L 22.0 26.0 ABE ___-2.2__ -mmol/L -2.0 2.0 tHb ___10.9__ -g/dL O2Hb ___90.6__ -% COHb ____0.8__ -% MetHb ____1.1__ -% sO2 ___92.4__ -% FIO2 ___40.0__ -% PRVC 400 - PEEP ___13.0__ -cmH2O Set_RR ___18.0__ -b/min Drawn By LT - Date/Time Notified____ 05:22:00 -_ Spontaneous_RR ___23.0__ -b/min Notified Whom ___DR. PARSONS - B 762 -mmHg tO2 ___13.9__ -Vol% Adolph test _Positive - Assessment & Plan Ms. Brown is an 86-year-old female with history of non-insulin requiring type II diabetes, hypothyroid, and hypertension who presented to the ER for complaints of 2 days of high fever and cough. Today is hospital day 6. acute, active problems: Acute hypoxic respiratory failure, present on admission, due to viral adenovirus pneumonia and likely secondary bacterial pneumonia. -Patient was requiring high flow nasal cannula with 80% FiO2 and continued to be in moderate respiratory distress. Pt is sedated and intubated on fentanyl, propofol, and cisatracurium. -Echocardiogram as above, EF 65-70% -DuoNeb 4 times a day while awake, albuterol as needed -One dose of IV furosemide 40 mg given 02/01/17 and kidney function worsened -Started on tigecycline IV 02/01/17 and Zosyn IV 02/02/17 -Pulmonology consulted and following. Their time and recommendations are appreciated. -CTA chest performed as above -Pt underwent a bronchoscopy today -ABGs as needed -Palliative consulted. Family meeting today. Per palliative care note, family decided to change code status to DNR/DNI and likely extubate patient tomorrow morning after pt's grandson is informed. Severe sepsis, acute, active. -Patient meets criteria with temperature 38.4 degrees C, HR 92 bpm, respiratory rate 32, with pneumonia and C. difficile infection. She also has hypotension and acute kidney injury. -She continues to be febrile -Continue tigecycline, Zosyn, Flagyl, and vancomycin -Continue to monitor -Norepinephrine and vasopressin for blood pressure support Community-acquired pneumonia, likely viral pneumonia with a secondary bacterial pneumonia, present on admission, Presentation of cough, fever, lung infiltrate on x-ray is suspicious for pneumonia as above. Pt was also hypoxic with diffuse wheezing. Respiratory PCR+ adenovirus. -MRSA screen negative, S. pneumoniae and legionella screen negative, Blood cultures negative -Initially started on IV ceftriaxone and IV azithromycin on January 29 in the ED. discontinued 01/30, added doxycycline later given concern for atypical pneumonia , which was also discontinued -Started on tigecycline IV 02/01/17 and Zosyn IV 02/02/17 -Infectious disease consulted and following, their time and recommendations are appreciated Acute kidney injury, present on admission, Patient is unsure of any history of chronic kidney disease. Creatinine is 1.13 on admission, possibly prerenal with GI fluid loss or related to hypervolemic state currently. Probable acute tubular necrosis. Worsening. -Initial creatinine 1.13 on day of admission, 5.63 today -Renal US as above showed simple renal cyst on left -Continue to trend creatinine -Avoid renal toxin, renally adjust medications -One time dose of IV furosemide on 02/01/17 -Nephrology consulted and following. Their time and recommendations are appreciated. -Fluids per nephrology -Pt received hemodialysis for the past 2 days and will again today pending family meeting Acute C. difficile colitis, Patient presented with 2 days of fever, diarrhea, URI symptoms. No history of recent antibiotic use. Has history of contact with family members with similar symptoms ( diarrhea and URI symptoms). C. difficile positive -Clinically stable, minimal abdominal symptoms, but diarrhea persistent and mildly improving. -Baseline KUB was not suggestive of toxic megacolon and repeat KUB showed normal bowel gas pattern but will continue to monitor for changes in symptoms. Consider CT scan if continued concern. -CT abdomen and pelvis with contrast yesterday showed possible colitis -Started vancomycin by mouth 01/30, added Flagyl IV 500 q8h for additional coverage, tigecycline IV as above for pneumonia with additional coverage for C.difficile. -Monitor stools closely, replete electrolytes as needed -Nutrition consultation Atrial fibrillation, acute, rate controlled -Noted on telemetry on 02/02/17 in the morning and confirmed with EKG -Given a dose of diltiazem and followed by diltiazem at 5 ml/hour -Diltiazem on hold for now. Will resume if rate increases -Continue to monitor Nutrition -Low albumin, 1.8 improved mildly today to 2.2 -Dietary following -Initiated tube feeding -Albumin 50 g once on 02/04/17 Acute metabolic acidosis and respiratory alkalosis, acute, active. -Anion gap 24.5 with correction for albumin -ABG shows hypocapnia and hypoxia and acidosis chronic, stable problems Sinus Arrythmia, present on admission -Patient denied any previous cardiac history. -Admission EKG showed a sinus arrhythmia. -Patient was complaining of any chest pain, may be due to hypoxia Thrombocytopenia with chronic normocytic anemia, present on admission -Platelets of 110 on admission. Patient's platelet was 106 in August, and was 145 in 2012. -Uncertain of etiology, but will need an outpatient workup. -Stable normocytic anemia with hgb of 11.6. -Continue to monitor and consider holding heparin Hypothyroidism -Resume levothyroxine 50mcg Hypertension, present on admission -Hold home lisinopril, given low blood pressure trends Mixed urinary incontinence, present on admission Type II diabetes, present on admission -Patient reports her primary care provider does not think she has diabetes and removed all of her diabetes medication -Hgb A1c 6.4% -Continue to monitor morning blood glucose Morbid obesity, present on admission, BMI of 40.4 Tylenol when necessary for fever/pain Ibuprofen when necessary for fever/pain Pain Evaluation: Adequate Pain Control GI Prophylaxis: H2 kyra VTE Prophylaxis: Sub-Q Heparin (Unfractionated) VTE Mechanical Devices: Intermittant Pneumatic CD Resuscitation Status: CPR: Attempt Resuscitation Attending Statement The patient was seen and examined together with Dr. Ferreira on 02/05/2017 and I agree with the history, exam and plan as outlined in the note above. . Mariely Ferreira DO February 05, 2017 06:58 Thaddeus Hardin MD February 06, 2017 17:04
--- NOTE | 2017-02-05 21:58 | NUR ---
Assume care Assumed patient care from [id number], pt report given to Nahed Frost RN
--- NOTE | 2017-02-06 01:27 | NUR ---
[facility] Pt. passes away at 0010 this morning, daughter called and came to bedside, unfortunately a few minutes after pt. had passed, but her friend was with her, as was her nurse. Pt. became more and more bradycardic and hypotensive, SPO2 in the 50's toward the end. Pt. passed peacefully at 0010. Daughter stated home is [facility] in [place]. No conditions or accidents noted to qualify as coroners case at this time.
--- NOTE | 2017-02-06 07:24 | ENDO ---
[address] [address] ENDOSCOPY PROCEDURE PATIENT: Jacky ABDUL : 1930 MR#: [id number] ADMIT: 01/29/2017 JOB ID: [id number] DATE OF SERVICE: 02/05/2017 PROCEDURE: Bronchoscopy. SURGEON: Olga Summers MD. INDICATION: Respiratory failure, right upper lobe pneumonia. Informed consent was obtained from the patient's daughter after risks and benefits of the procedure were discussed including decompensation and from severe hypoxia. DESCRIPTION: The patient was intubated, on sedation and paralytics prior to the procedure. She was on 100% oxygen. Lidocaine was administered through the ET tube, and the scope was passed through the endotracheal tube into the trachea. Tracheal mucosa showed areas of petechiae and erythema most likely due to suction trauma. We did a complete airway inspection on the right and left-sided airways, and there was no evidence of mass/mucosal abnormality or airway occlusion. The specific area of concern was the right upper lobe with a region of pneumonia. There were some yellow thick secretions at the orifice of the right upper lobe but all three segmental airways -- anterior, apical and posterior, were wide open without any mass or occlusion. We did a bronchoalveolar lavage in the posterior segment of the right upper lobe; 120 cc of saline was administered with about 30-40 cc of return obtained. The patient tolerated the procedure reasonably well. COMPLICATIONS: Desaturation to 82% briefly. The patient had started out with sats in the high 80s, 87% to 89%. SAMPLES: BAL of right upper lobe. About 35 cc sent for bacterial, fungal, AFB cultures, cytology, cell count and diff, bacterial, fungal, AFB, PCR and viral PCR. MEDICATIONS: She was on propofol and fentanyl infusions, as well as cisatracurium and fusion. She received topical lidocaine, approximately 6 cc.
--- NOTE | 2017-02-06 21:16 | PCM.DC.MEX ---
Discharge Summary Date of Service February 06, 2017 Dates of Hospitalization Date of Hospital Admission January 29, 2017 at 00:23 Date of Expiration: February 06, 2017 Time of Expiration: 00:10 Providers: Admitting Physician: April Chaney DO Primary Care Physician: Ventura Winter Attending Physician: April Chaney DO Diagnosis at Time of Acute hypoxemic respiratory failure, present on admission, due to viral adenovirus pneumonia and likely secondary bacterial pneumonia. Acute respiratory distress syndrome Additional Diagnosis Severe sepsis, acute, active. Community-acquired or possibly health care associated pneumonia, likely viral pneumonia with a secondary bacterial pneumonia Acute kidney injury Acute Clostridium difficile colitis Atrial fibrillation Nutrition Acute metabolic acidosis and respiratory alkalosis. chronic, stable problems Sinus Arrythmia Thrombocytopenia with chronic normocytic anemia Hypothyroidism Hypertension Mixed urinary incontinence Type II diabetes mellitus Morbid obesity,BMI of 40.4 Consultations Pulmonology Infectious Disease Nephrology Palliative care Physical therapy Respiratory therapy Nutrition Anesthesiology Procedures XRay, CTs & MRIs PROCEDURE: CT ANGIO CHEST PULMONARY EMBOLISM IMPRESSION: 1. No main, left or right, or first order pulmonary artery branch emboli. Smaller pulmonary arteries are obscured by motion. 2. Dense bilateral consolidation most consistent with pneumonia. Mediastinal and hilar lymphadenopathy is most likely reactive. Right apical consolidation may demonstrate very early cavitation. Recommend clinical followup to resolution with further chest CT as needed to exclude any underlying malignancy. 3. Soft tissue stranding about a right IJ central venous catheter insertion site. This may represent postoperative change if the line was recently placed. Otherwise, infection or venous thrombus cannot be excluded. 4. ET and enteric tubes. Approved by: Luis Ramirez M.D. on 02/03/2017 at 18:28 PROCEDURE: CT ABDOMEN AND PELVIS WITH CONTRAST IMPRESSION: 1. Mild thickened appearance of the sigmoid colon with pericolonic stranding as described above. Diverticula are present. Findings are suspicious for an early colitis, possibly secondary to diverticulitis. No free air or pericolonic abscess. 2. 19 mm focus of enhancement within the medial right hepatic lobe. No priors are available for comparison. This could represent a small hemangioma. However, other etiologies cannot be excluded. Further characterization with ultrasound may be obtained as clinically indicated. 3. Bilateral consolidative opacities most suggestive of pneumonia. Overall appearance has not significantly changed. Approved by: Roxann Kline M.D. on 02/04/2017 at 15:31 PROCEDURE: X-RAY CHEST ONE VIEW, PORTABLE IMPRESSION: 1. Increased bilateral areas of consolidation likely representing multifocal pneumonia. Recommend correlation clinically and followup to demonstrate resolution. Approved by: Aravind Shah M.D. on 01/31/2017 at 17:32 Cardiac Echo Impression Echocardiogram Report Interpretation Summary The patient was in atrial fibrillation with heart rates between 85-115 bpm during the exam. Mild concentric left ventricular hypertrophy with hyperdynamic function and estimated ejection fraction of 65-70%. Normal right ventricle and both atria. Mild aortic valve sclerosis. No valvular regurgitation. The right ventricular systolic pressure is estimated at 28 mmHg assuming a right atrial pressure of 3 mm Hg. Mildly enlarged ascending aorta. Electronically signed by: Rosa Elena Mcdonald on Reading Physician:02/02 01:19 PM Other Diagnostics Arterial blood gas DateTimeAnalyzed 04:33:00 -_ pH ____7.333 - 7.350 7.450 pCO2 ___40.1__ -mmHg 35.0 45.0 pO2 ___50.7__ -mmHg 69.0 116 HCO3- ___20.7__ -mmol/L 22.0 26.0 ABE ___-4.3__ -mmol/L -2.0 2.0 tHb ___11.1__ -g/dL O2Hb ___79.7__ -% COHb ____0.7__ -% MetHb ____1.4__ -% sO2 ___81.4__ -% FIO2 __100.0__ -% PEEP ___15.0__ -cmH2O Set_RR ___25.0__ -b/min Vt __320.0__ -L Drawn By MK - Date/Time Notified____ 05:08:00 -_ Spontaneous_RR ___25.0__ -b/min Oxygen Device 1 VENTILATOR - Notified By MK - Notified Whom Dr Fuiamono - B 761 -mmHg tO2 ___12.4__ -Vol% Adolph test _Positive - Brief History From the history and physical performed by Dr. Marisela Guerrero on 01/29/2017: 86-year-old female with history of non-insulin requiring type II diabetes, hypothyroid, and hypertension who presented to the ER for complaints of 2 days of high fever and cough. Daughter reports that associated symptoms include shortness of breath, generalized myalgias, and sore throat. Daughter has noted that patient has had some confusion also. Patient reports she has been around children that have been sick recently, but denies any recent travels. She has had a mild headache and lightheadedness, but denies any chest pain, abdominal pain, diarrhea, or rash. She at baseline has mixed urinary incontinence, but denies any dysuria. She reports her cough has been mildly productive. She has had decreased appetite and PO intake. Current PCP is Nikita. In the ER, patient was noted to be febrile with a temperature of 39.3, pulse of 84, respiratory rate of 20 and a blood pressure 151/73. She was noted to saturate around 92% on room air, but does desat to 88% with exertion. CBC is pertinent for a hemoglobin of 11.6 and a platelet count of 110 CMP was pertinent for creatinine of 1.13 and a pro-calcitonin 0.11 Patient was started on IV azithromycin and IV ceftriaxone for presumed CAP Hospital Course Ms. Brown was an 86-year-old female with history of non-insulin requiring type II diabetes, hypothyroid, and hypertension who presented to the ER for complaints of 2 days of high fever and cough acute, active problems: Acute hypoxemic respiratory failure, present on admission, due to viral adenovirus pneumonia and likely secondary bacterial pneumonia. Acute respiratory distress syndrome -Patient was requiring high flow nasal cannula with 80% FiO2 and continued to be in moderate respiratory distress. Patient was sedated and intubated on fentanyl, propofol, and cisatracurium. ABG showed low oxygen level. -Echocardiogram as above, ejection fraction of 65-70% -DuoNeb 4 times a day while awake, albuterol as needed -One dose of IV furosemide 40 mg given 02/01/17 -Started on tigecycline IV 02/01/17 and Zosyn IV 02/02/17 -Pulmonology consulted and followed. Their time and recommendations were appreciated. -CTA chest performed as above -Patient underwent a bronchoscopy. It revealed positive adenovirus and no sign of a mass causing obstruction. Fungal and atypical bacteria tests are pending. -Palliative consulted. Family meeting on 02/05/17, and per palliative care note , family decided to change code status to DNR/DNI with plans to likely compassionately extubate patient after patient's grandson was informed. -Patient became increasingly bradycardic and hypotensive, with oxygen saturation in the 50's and at 00:10 on 02/06/2017. Severe sepsis, acute, active. -Patient met criteria with temperature 38.4 degrees C, HR 92 bpm, respiratory rate 32, with pneumonia and C. difficile infection. She also hypotension and had acute kidney injury. -She continued to be febrile -Continued tigecycline, Zosyn, Flagyl, and vancomycin -Patient had a central venous access and arterial line placed -Norepinephrine and vasopressin for blood pressure support Community-acquired pneumonia or possible health care associated pneumonia, likely viral pneumonia with a secondary bacterial pneumonia, present on admission, Presentation of cough, fever, lung infiltrate on x-ray was suspicious for pneumonia as above. Pt was also hypoxic with diffuse wheezing. Respiratory PCR positive for adenovirus. -MRSA screen negative, S. pneumoniae and legionella screen negative, Blood cultures negative -Initially started on IV ceftriaxone and IV azithromycin on January 29 in the ED. discontinued on 01/30/17, added doxycycline later given concern for atypical pneumonia, which was also discontinued -Started on tigecycline IV on 02/01/17 and Zosyn IV on 02/02/17 -Infectious disease consulted and followed, their time and recommendations were appreciated Acute kidney injury, present on admission, Patient was unsure of any history of chronic kidney disease. Creatinine was 1.13 on admission. Probable acute tubular necrosis. Worsening. -Initial creatinine 1.13 on day of admission, 4.41 on 02/05/17 -Renal US as above showed simple renal cyst on left -Avoided renal toxins, renally adjust medications -One time dose of IV furosemide on 02/01/17 -Nephrology consulted and followed. Their time and recommendations were appreciated. -Patient received hemodialysis for 2 days Acute Clostridiumm difficile colitis, Patient presented with 2 days of fever, diarrhea, URI symptoms. No history of recent antibiotic use. Had history of contact with family members with similar symptoms ( diarrhea and URI symptoms). C. difficile positive -Minimal abdominal symptoms, but diarrhea persistent. -Baseline KUB was not suggestive of toxic megacolon and repeat KUB showed normal bowel gas pattern -CT abdomen and pelvis with contrast yesterday showed possible colitis -Started vancomycin by mouth 01/30, added Flagyl IV 500 q8h for additional coverage, tigecycline IV as above for pneumonia with additional coverage for C.difficile. Atrial fibrillation, acute, rate controlled -Noted on telemetry on 02/02/17 in the morning and confirmed with EKG -Given a dose of diltiazem and followed by diltiazem at 5 ml/hour -Diltiazem held when patient was hypotensive Nutrition -Low albumin, 1.8 improved mildly to 2.2 -Dietary followed -Initiated tube feeding -Albumin 50 g once on 02/04/17 Acute metabolic acidosis and respiratory alkalosis, acute, active. -Anion gap 24.5 with correction for albumin -ABG showed hypocapnia and hypoxia and acidosis chronic, stable problems Sinus Arrythmia, present on admission -Patient denied any previous cardiac history. -Admission EKG showed a sinus arrhythmia, premature atrial contractions Thrombocytopenia with chronic normocytic anemia, present on admission, stable. -Platelets of 110 on admission. Patient's platelet was 106 in August, and was 145 in 2012. Hypothyroidism -Resumed levothyroxine 50mcg Hypertension, present on admission -Held home lisinopril, given low blood pressure Mixed urinary incontinence, present on admission Type II diabetes mellitus, present on admission -Patient reported that her primary care provider did not think she had diabetes and removed all of her diabetes medication Morbid obesity, present on admission, BMI of 40.4 Exam Test 01/28/17 23:33 01/29/17 00:00 01/29/17 03:25 01/29/17 05:20 Troponin T 0.010ug/L (0.0-0.011) Pro-B-Type Natriuretic Peptide 199.2pg/mL (0-738) Hemoglobin A1c 6.4% (4.8-5.6) Erythrocyte Sedimentation Rate 48mm/hr (0-40) C-Reactive Protein 4.3mg/dL (0.0-0.5) Test 01/31/17 08:50 01/31/17 18:47 01/31/17 22:00 02/01/17 18:47 Thyroid Stimulating Hormone (TSH) 1.250uIU/mL (0.450-4.500) Free Thyroxine 1.02ng/dL (0.82-1.77) Urine Color Yellow (YELLOW) Urine Appearance Hazy (CLEAR,HAZY) Urine pH 5.5 (5.0-8.0) Urine Specific [place] 1.025 (1.003-1.035) Urine Protein 30mg/dL (NEG,TRACE) Urine Glucose (UA) Negativemg/dL (NEGATIVE) Urine Ketones Tracemg/dL (NEGATIVE) Urine Occult Blood Small (NEGATIVE) Urine Nitrite Negative (NEGATIVE) Urine Bilirubin Negative (NEGATIVE) Urine Urobilinogen Normalmg/dL (NORMAL) Urine Leukocyte Esterase Negative (NEGATIVE) Urine RBC 0-2/hpf (0-2) Urine WBC 0-5/hpf (0-5) Urine Epithelial Cells None/hpf (NONE-MOD) Urine Crystals Amorphous urates (NONE Urine Bacteria Few/hpf (NONE-FEW) Urine Hyaline Casts None/lpf (NONE) Urine Granular Casts None seen (NONE SEEN) Urine Waxy Casts None seen (NONE SEEN) Urine Red Blood Cell Casts None seen (NONE SEEN) Urine White Blood Cell Casts None seen (NONE SEEN) Urine Mucus None seen (None Seen) Urine Trichomonas None seen (NONE SEEN) Urine Yeast None (NONE SEEN) Urinalysis Comment None Urine Culture Reflexed Not indicated Lactic Acid Level 0.9mmol/L (0.4-2.0) Hold Dooley Top Tube Received (Received) Test 02/02/17 17:00 02/03/17 04:00 02/03/17 18:45 02/04/17 00:10 Urine Random Creatinine 52mg/dL (15-278) Urine Random Total Protein 68mg/dL (0-15) Urine Random Sodium 80mEq/L Urine Urea Nitrogen 231mg/dL (Not Estab.) Hold Urine Received (Received) Urine Legionella pneumophilia Ag Negative (Negative) Ionized Calcium (Calculated) 3.91mg/dL (3.5-5.2) Total Complement (CH50) 27U/mL (42-60) Hepatitis B Surface Antigen Negative (Negative) Hepatitis B Surface Antibody Non reactive (.) Hepatitis B Core Total Antibody Negative (Negative) Hepatitis C Antibody <0.1s/co ratio (0.0-0.9) Band Neutrophils % 7% (1-5) Test 02/04/17 07:00 02/05/17 05:45 02/05/17 10:30 02/05/17 11:50 Cryptococcus Antigen Negative (Negative) White Blood Count 5.4th/mm3 (3.8-10.1) Red Blood Count 3.72mil/mm3 (3.90-5.20) Hemoglobin 11.1g/dL (12.0-15.6) Hematocrit 32.5% (35.0-46.0) Mean Corpuscular Volume 87.4fL (81-100) Mean Corpuscular Hemoglobin 29.8pg (27.0-35.0) Mean Corpuscular Hemoglobin Concent 34.2% (32.0-37.0) Red Cell Distribution Width 15.4% (12.3-15.4) Platelet Count 129bil/L (150-400) Neutrophils (%) (Auto) 76.8% (40-74) Lymphocytes (%) (Auto) 21.6% (14-46) Monocytes (%) (Auto) 0.7% (4-12) Eosinophils (%) (Auto) 0% (0-5) Basophils (%) (Auto) 0.2% (0-3) Sodium Level 139mEq/L (134-144) Potassium Level 4.2mEq/L (3.5-5.2) Chloride Level 100mEq/L (97-108) Carbon Dioxide Level 19mmol/L (18-29) Blood Urea Nitrogen 51mg/dL (8-27) Creatinine 4.41mg/dL (0.57-1.00) Estimat Glomerular Filtration Rate 14mL/min (>59) Glucose Level 180mg/dL (60-99) Calcium Level 6.6mg/dL (8.5-10.1) Phosphorus Level 5.8mg/dL (2.5-4.9) Magnesium Level 1.7mg/dL (1.6-2.6) Total Bilirubin 0.7mg/dL (0.0-1.2) Aspartate Amino Transf (AST/SGOT) 269U/L (0-50) Alanine Aminotransferase (ALT/SGPT) 52U/L (0-32) Alkaline Phosphatase 97U/L (25-165) Total Protein 4.5g/dL (6.4-8.4) Albumin 2.2g/dL (3.4-5.0) Procalcitonin 9.63ng/mL (0.00-0.08) Body Fluid Source Bronchial washing Body Fluid Color Straw (Clear) Body Fluid Appearance Hazy Body Fluid WBC 155/mm3 Body Fluid RBC 3175/mm3 Body Fluid Polynuclear WBCs 60% Body Fluid Lymphocytes 10% Body Fluid Monocytes 30% Body Fluid Eosinophils 0% Body Fluid Basophils 0% Body Fluid Comment Microbiology Results Positive stool Clostridium difficile toxin Positive nasopharyngeal adenovirus Positive bronchial washing adenovirus Attending Statement The patient was seen and examined together with Dr. Ferreira on 02/06/2070 and I agree with the history, exam and plan as outlined in the note above. . copies to: [facility] Marissa L DO February 06, 2017 21:16 Thaddeus Hardin MD February 08, 2017 15:31 Microbiology Results Positive stool Clostridium difficile toxin Positive nasopharyngeal adenovirus Positive bronchial washing adenovirus copies to: [facility] Marissa L DO February 06, 2017 21:16 Body Fluid Comment copies to: [facility] Marissa L DO February 06, 2017 21:16
[2017-02-09 08:18] LABS: Perinuclear (P-ANCA) <1:20 titer (Neg:<1:20)
== END 2017-02-06 00:10 | disposition expired | DRG 208 ==
LOC: SED 22:18 → OSC 01-29 00:23 → PCC 01-31 19:10 → CCU 02-03 10:41
PROVIDERS: ADMIT Internal Medicine; ATTEND Internal Medicine
PROC: 4A033R1 Measurement of Arterial Saturation, Peripheral, Percutaneous Approach (ICD-10-PCS; 2017-01-31)
PROC: 5A1945Z Respiratory Ventilation, 24-96 Consecutive Hours (ICD-10-PCS; principal; 2017-02-03)
PROC: 02HV33Z Insertion of Infusion Device into Superior Vena Cava, Percutaneous Approach (ICD-10-PCS; 2017-02-03)
PROC: 0BH17EZ Insertion of Endotracheal Airway into Trachea, Via Natural or Artificial Opening (ICD-10-PCS; 2017-02-03)
PROC: 06HM33Z Insertion of Infusion Device into Right Femoral Vein, Percutaneous Approach (ICD-10-PCS; 2017-02-03)
PROC: 5A1D00Z (ICD-10-PCS; 2017-02-03)
PROC: 5A1D00Z (ICD-10-PCS; 2017-02-04)
PROC: 03HY32Z Insertion of Monitoring Device into Upper Artery, Percutaneous Approach (ICD-10-PCS; 2017-02-05)
PROC: 0B948ZX Drainage of Right Upper Lobe Bronchus, Via Natural or Artificial Opening Endoscopic, Diagnostic (ICD-10-PCS; 2017-02-05)
DX: J12.0 Adenoviral pneumonia (principal); J96.01 Acute respiratory failure with hypoxia; N17.0 Acute kidney failure with tubular necrosis; A41.9 Sepsis, unspecified organism; R65.21 Severe sepsis with septic shock; Z68.41 Body mass index [BMI] 40.0-44.9, adult; A04.7 Enterocolitis due to Clostridium difficile; E87.2 Acidosis; E87.3 Alkalosis; J80 Acute respiratory distress syndrome; Z87.891 Personal history of nicotine dependence; E11.9 Type 2 diabetes mellitus without complications; E03.9 Hypothyroidism, unspecified; E78.5 Hyperlipidemia, unspecified; D69.6 Thrombocytopenia, unspecified; D64.9 Anemia, unspecified; N39.46 Mixed incontinence; E66.01 Morbid (severe) obesity due to excess calories; I10 Essential (primary) hypertension; I48.91 Unspecified atrial fibrillation; I49.9 Cardiac arrhythmia, unspecified; J15.9 Unspecified bacterial pneumonia; Z66 Do not resuscitate; R77.0 Abnormality of albumin